=== PATIENT | female | born 1970 | race Caucasian/White ===

== ENCOUNTER 2021-01-24 00:38 | Emergency (ER) | payer BC, OTHER ==
[2021-01-24 01:04] VITALS: TEMP 98.8
--- NOTE | 2021-01-24 02:16 | CT ---
EXAMINATION TYPE: CT brain cspine wo con DATE OF EXAM: 01/24/2021 COMPARISON: None HISTORY: fall, unknown LOC. pain. CT DLP: 836.8 mGycm Automated exposure control for dose reduction was used. Exam performed without contrast. Ventricles have normal size. There is no mass effect nor midline shift. There is no sign of intracran ial hemorrhage. There is fluid level left maxillary sinus. There is some mild mucosal thickening in t he ethmoid sinuses. There is some mucosal thickening in the left mastoid sinus. The temporal bones appear intact. I do no t see evidence of a basilar skull fracture. External auditory canals appear normal. Cervical vertebra have normal spacing and alignment. Posterior elements are intact. There is no compr ession fracture. Facet joints are intact. Prevertebral soft tissues are intact. There is mild anterio r spurring at C4-5 and C5-6. IMPRESSION: Mild spurring in the cervical spine. No fracture. There is some mucosal thickening in the left mastoid sinus but no fracture line identified. This coul d be ordinary mastoiditis. Ethmoid and left maxillary sinusitis.
--- NOTE | 2021-01-24 02:20 | CT ---
EXAMINATION TYPE: CT thoracic spine wo con DATE OF EXAM: 01/24/2021 COMPARISON: None HISTORY: fall, unknown LOC. pain. CT DLP: 836.8 mGycm Automated exposure control for dose reduction was used. Images obtained from T1 to T12 without contrast. Thoracic vertebra have normal alignment. Posterior elements are intact. There is no compression fract ure. There is no evidence of thoracic paraspinal mass. There is fracture of the lateral left fourth r ib with minimal pleural thickening. This is incompletely evaluated and is on the edge of the images. I see no focal bone destruction. IMPRESSION: No evidence of thoracic spine fracture. Left fourth rib fracture.
--- NOTE | 2021-01-24 02:27 | CT ---
EXAMINATION TYPE: CT chest wo con DATE OF EXAM: 01/24/2021 COMPARISON: HISTORY: Fall to left side CT DLP: 836.80 mGycm Automated exposure control for dose reduction was used. Images obtained from the thoracic inlet to the diaphragm without contrast. Visualized shoulder joints appear intact. There is some mild subpleural reticular infiltrate lateral left upper lobe. There is no pneumothorax. There is minimal subsegmental atelectasis at the lung base s. There is no pleural effusion. There is no pericardial effusion. Heart and mediastinum appear queta l. There are no hilar masses. There is a fracture of the lateral aspect left fourth rib without significant displacement. There is minimal adjacent pleural reaction. There is no thoracic paraspinal mass. IMPRESSION: Acute fracture lateral left fourth rib. Mild subsegmental atelectasis. No pneumothorax. Normal heart.
[2021-01-24] MEDS ORDERED: KETOROLAC 15 MG/ML 1 ML VIAL IM STA (04:12)
--- NOTE | 2021-01-24 04:25 | ED ---
Fall HPI - General Chief Complaint: Fall Stated Complaint: Fall Time Seen by Provider: 01/24/21 00:43 Source: patient, EMS Mode of arrival: EMS - Related Data Previous Rx's Medication Instructions Recorded Amoxicillin/Potassium Clav 1 tab PO Q12HR 1 Days #14 tab 01/24/21 [Augmentin 875-125 Tablet] Allergies Allergy/AdvReac Type Severity Reaction Status Date / Time No Known Allergies Allergy Verified 01/24/21 01:03 Review of Systems ROS Statement: Those systems with pertinent positive or pertinent negative responses have been documented in the HPI. ROS Other: All systems not noted in ROS Statement are negative. Past Medical History Past Medical History: No Reported History History of Any Multi-Drug Resistant Organisms: None Reported Past Surgical History: No Surgical Hx Reported Past Psychological History: No Psychological Hx Reported Smoking Status: Current every day smoker Past Alcohol Use History: Occasional Past Drug Use History: None Reported General Exam Limitations: altered mental status Course Vital Signs 01/24/21 01/24/21 01/24/21 00:59 02:02 04:00 Temperature 98.8 F Pulse Rate 78 77 89 Respiratory 18 18 18 Rate Blood Pressure 132/93 121/70 116/80 O2 Sat by Pulse 95 93 L 92 L Oximetry Disposition Clinical Impression: Fall, Rib fracture Disposition: HOME SELF-CARE Condition: Good Instructions (If sedation given, give patient instructions): Rib Fracture (ED), Head Injury (ED) Prescriptions: Amoxicillin/Potassium Clav [Augmentin 875-125 Tablet] 1 tab PO Q12HR 1 Days #14 tab Is patient prescribed a controlled substance at d/c from ED?: No Referrals: None,Stated [Primary Care Provider] - 1-2 days Woody Carroll MD [STAFF PHYSICIAN] - 1-2 days
[2021-01-24 05:04] VITALS: BP 114/84; PULSE 78; RESP 16
== END 2021-01-24 05:04 | disposition home or self-care (01) ==
LOC: EC 00:38
DX: S22.32XA Fracture of one rib, left side, initial encounter for closed fracture (principal); F17.200 Nicotine dependence, unspecified, uncomplicated; W10.9XXA Fall (on) (from) unspecified stairs and steps, initial encounter
CPT/HCPCS: 72128; 72125; 70450; 71250; 99284; 96372; J1885

== ENCOUNTER 2021-01-28 10:51 | Inpatient (IN) | payer BC, MEDICARE ==
[2021-01-28] MEDS ORDERED: HYDROmorphone 0.5 MG/0.5 ML SYRINGE IVP STA ×4 (11:22→13:20)
[2021-01-28] MEDS ORDERED: SODIUM CHLORIDE 0.9% 1,000 ML IV ONE (11:25)
--- NOTE | 2021-01-28 11:47 | ED ---
General Adult HPI - General Chief complaint: Shortness of Breath Stated complaint: Revisit/TRINIDAD/Rib Pain Time Seen by Provider: 01/28/21 11:10 Source: patient, RN notes reviewed, old records reviewed Mode of arrival: ambulatory Limitations: no limitations - History of Present Illness Initial comments: 50-year-old female presenting with left-sided chest pain. Patient had been seen in the emergency department 4 days prior status post fall down several stairs. She had chest wall trauma and had 2 broken ribs. She states that the pain has worsened and she is having difficulty breathing over the past few days. She denies cough or fever. She has also had some bleeding from the left ear. - Related Data Home Medications Medication Instructions Recorded Confirmed ALPRAZolam [Xanax] 1 mg PO Q8HR PRN 01/28/21 01/28/21 Allergies Allergy/AdvReac Type Severity Reaction Status Date / Time ketorolac [From Toradol] AdvReac Nausea & Verified 01/28/21 12:38 Vomiting Review of Systems ROS Statement: Those systems with pertinent positive or pertinent negative responses have been documented in the HPI. ROS Other: All systems not noted in ROS Statement are negative. Past Medical History Past Medical History: No Reported History History of Any Multi-Drug Resistant Organisms: None Reported Past Surgical History: No Surgical Hx Reported Past Psychological History: No Psychological Hx Reported Smoking Status: Current every day smoker Past Alcohol Use History: Occasional Past Drug Use History: None Reported General Exam Limitations: no limitations General appearance: alert, in no apparent distress Head exam: Present: atraumatic, normocephalic Eye exam: Present: normal appearance, PERRL ENT exam: Absent: TM's normal bilaterally (There is dry blood in the left external auditory canal and ruptured tympanic membrane.) Neck exam: Present: normal inspection. Absent: tenderness, meningismus Respiratory exam: Present: chest wall tenderness, decreased breath sounds (left). Absent: respiratory distress Cardiovascular Exam: Present: regular rate, normal rhythm GI/Abdominal exam: Present: soft. Absent: distended, tenderness Extremities exam: Present: normal inspection, normal capillary refill. Absent: pedal edema Neurological exam: Present: alert, oriented X3, CN II-XII intact. Absent: motor sensory deficit Psychiatric exam: Present: normal affect, normal mood Skin exam: Present: warm, dry, intact. Absent: cyanosis, diaphoretic Course Vital Signs 01/28/21 01/28/21 01/28/21 10:55 11:56 12:50 Temperature 99.3 F Pulse Rate 106 H 84 Respiratory 18 20 Rate Blood Pressure 124/83 128/72 O2 Sat by Pulse 91 L 92 L 96 Oximetry 01/28/21 01/28/21 13:32 13:46 Temperature Pulse Rate 85 106 H Respiratory 16 22 Rate Blood Pressure 153/98 141/100 O2 Sat by Pulse 95 95 Oximetry Procedures - Chest Tube Insertion Consent Obtained: written consent Side of Procedure: left Indication: Other (Hemopneumothorax) Placed on monitor/pulse oximetry: Yes Site Prep: Chloroprep Local Anesthesia: Lidocaine 1% Insertion Site: 5th Intercostal Space, Midaxillary Scalpel: #15 Open into Pleural Space Using: Jolene Clamp Tube Size (Tajik): 28 Returns: Air, Blood Sutured in Place: Yes Type of Suture: Nylon Dressing Applied: Petroleum Gauze Attached to Suction: Yes Type of Suction: Pleuravac Repeat X-ray Results: Lung Inflated Patient Tolerated Procedure: well Medical Decision Making - Medical Decision Making 50 yo female presenting for reevaluation of left-sided chest pain and difficulty breathing after fall that occurred 4 days prior. I did repeat imaging of the chest which showed a large near complete pneumothorax with fluid component, suspected hemothorax. I did obtain consent for chest tube placement. I discussed case with cardiothoracic surgery who did recommend initial chest tube. Tube was placed without difficulty in the emergency department. Return to air and approximately 60 mL of blood-tinged fluid. Patient states he had a repeat x-ray which showed improved expansion, not complete. She will be admitted for monitoring of her chest tube, pain control. I discussed case with Dr. Sheldon who will admit. I discussed case with Dr. Palmer covering for the ICU, anesthesia was placed on consult for pain control. - Lab Data Result diagrams: 01/28/21 11:48 01/28/21 11:48 Lab Results 01/28/21 01/28/21 01/28/21 Range/Units 11:48 11:48 11:48 WBC 7.6 (3.8-10.6) k/uL RBC 4.17 (3.80-5.40) m/uL Hgb 14.4 (11.4-16.0) gm/dL Hct 43.4 (34.0-46.0) % MCV 104.2 H (80.0-100.0) fL MCH 34.4 (25.0-35.0) pg MCHC 33.0 (31.0-37.0) g/dL RDW 12.6 (11.5-15.5) % Plt Count 264 (150-450) k/uL MPV 7.5 Neutrophils % 71 % Lymphocytes % 20 % Monocytes % 5 % Eosinophils % 2 % Basophils % 1 % Neutrophils # 5.4 (1.3-7.7) k/uL Lymphocytes # 1.5 (1.0-4.8) k/uL Monocytes # 0.4 (0-1.0) k/uL Eosinophils # 0.1 (0-0.7) k/uL Basophils # 0.0 (0-0.2) k/uL Macrocytosis Slight PT 10.0 (9.0-12.0) sec INR 0.9 (<1.2) APTT 23.2 (22.0-30.0) sec Sodium 140 (137-145) mmol/L Potassium 4.3 (3.5-5.1) mmol/L Chloride 106 (98-107) mmol/L Carbon Dioxide 26 (22-30) mmol/L Anion Gap 8 mmol/L BUN 14 (7-17) mg/dL Creatinine 0.48 L (0.52-1.04) mg/dL Est GFR (CKD-EPI)AfAm >90 (>60 ml/min/1.73 sqM) Est GFR (CKD-EPI)NonAf >90 (>60 ml/min/1.73 sqM) Glucose 112 H (74-99) mg/dL Calcium 9.2 (8.4-10.2) mg/dL Total Bilirubin 0.5 (0.2-1.3) mg/dL AST 27 (14-36) U/L ALT 22 (4-34) U/L Alkaline Phosphatase 81 (38-126) U/L Total Protein 6.4 (6.3-8.2) g/dL Albumin 3.8 (3.5-5.0) g/dL Critical Care Time Critical Care Time: Yes Total Critical Care Time: 35 Disposition Clinical Impression: Multiple rib fractures, Hydropneumothorax Disposition: ADMITTED IP TO THIS [facility] Condition: Serious Is patient prescribed a controlled substance at d/c from ED?: No Referrals: None,Stated [Primary Care Provider] - 1-2 days Decision to Admit Reason: Admit from EC Decision Date: 01/28/21 Decision Time: 14:10
[2021-01-28 12:16] LABS: Basophils % (A) 1 %; Eosinophils # (A) 0.1 k/uL (0-0.7); Eosinophils % (A) 2 %; HCT 43.4 % (34.0-46.0); HGB 14.4 gm/dL (11.4-16.0); Lymphocytes # (A) 1.5 k/uL (1.0-4.8); Lymphocytes % (A) 20 %; MCH 34.4 pg (25.0-35.0); MCV 104.2 fL (80.0-100.0); Macrocytosis Slight; Mean Platelet Volume 7.5; Monocytes # (A) 0.4 k/uL (0-1.0); Monocytes % (A) 5 %; Neutrophils # (A) 5.4 k/uL (1.3-7.7); Neutrophils % (A) 71 %; Platelet Count 264 k/uL (150-450); RBC 4.17 m/uL (3.80-5.40); RDW 12.6 % (11.5-15.5); WBC 7.6 k/uL (3.8-10.6)
[2021-01-28 12:26] LABS: ALT 22 U/L (4-34); AST 27 U/L (14-36); African American GFR (CKD) >90 (>60 ml/min/1.73 sqM); Albumin 3.8 g/dL (3.5-5.0); Alkaline Phosphatase 81 U/L (38-126); Anion Gap 8 mmol/L; Blood Urea Nitrogen 14 mg/dL (7-17); Calcium 9.2 mg/dL (8.4-10.2); Carbon Dioxide 26 mmol/L (22-30); Chloride 106 mmol/L (98-107); Glucose 112 mg/dL (74-99); Non-African American GFR(CKD) >90 (>60 ml/min/1.73 sqM); Potassium 4.3 mmol/L (3.5-5.1); Sodium 140 mmol/L (137-145); Total Bilirubin 0.5 mg/dL (0.2-1.3); Total Protein 6.4 g/dL (6.3-8.2)
[2021-01-28 12:38] LABS: INR 0.9 (<1.2); Partial Thromboplastin Time 23.2 sec (22.0-30.0)
[2021-01-28] MEDS ORDERED: LIDOCAINE 1% INJ 10MG/ML (20 ML MDV) SQ ONE (12:41)
[2021-01-28] MEDS ORDERED: KETOROLAC 15 MG/ML 1 ML VIAL IVP STA (12:42)
--- NOTE | 2021-01-28 12:50 | CT ---
EXAMINATION TYPE: CT chest wo con DATE OF EXAM: 01/28/2021 COMPARISON: 01/24/2021 HISTORY: left side chest trauma CT DLP: 164.[address] of the chest was performed with lung and mediastinal window settings submitted. The la ck of contrast limits evaluation of the vascular, mediastinal and parenchymal structures including th e upper abdomen. LUNGS: Large greater than 80% left-sided pneumothorax with hydropneumothorax component noted. There i s no evidence of mediastinal shift. The right lung is clear. Upper lobe emphysematous changes noted. MEDIASTINUM/DEBBY: Thoracic aorta is of normal caliber with limited evaluation given lack of contrast . The heart is not enlarged. No evidence for mediastinal mass. No lymph nodes greater than 1cm. UPPER ABDOMEN: No significant abnormality is seen. OTHER: Fractures of left ribs 4 and 5 anteriorly and posteriorly at 9 and 10. Small amount of subcuta neous air demonstrated. IMPRESSION: 1. Large left-sided pneumothorax estimated at approximately 80% hydropneumothorax component. No medi astinal shift. Several left-sided rib fractures.
--- NOTE | 2021-01-28 13:05 | XR ---
EXAMINATION TYPE: XR chest 1V portable DATE OF EXAM: 01/28/2021 COMPARISON: CT chest same date HISTORY: Pneumothorax TECHNIQUE: Single frontal view of the chest is obtained. FINDINGS: The large left-sided pneumothorax is again seen. Fourth rib fracture on the left is noted. Patient is somewhat rotated. No definite mediastinal shift. There is associated atelectatic lung, le ft effusion, hydropneumothorax. Right lung is spared. Heart is not enlarged. IMPRESSION: Large left or pneumothorax is again seen. Left-sided rib fracture. Report relayed teleph onically to the referring clinician at the time of interpretation.
--- NOTE | 2021-01-28 13:13 | CT ---
EXAMINATION TYPE: CT iac wo con DATE OF EXAM: 01/28/2021 COMPARISON: None HISTORY: left side ear pain post fall Automated exposure control for dose reduction was used. FINDINGS: There is fluid noted within the left-sided mastoid air cells as well as attenuation surroun ding the ossicular chain. Coronal data sets 58 of 102 demonstrates possible cortical defect marked wi th an arrow. The findings could be related to fracture and underlying hemorrhage however the margins are somewhat sclerotic. Additional consideration would be that of chronic mastoiditis with cholestero l granuloma of the left ossicular chain. Clinical correlation however is recommended. Right-sided mas toid air cells and right-sided ossicular chain appear unremarkable. IMPRESSION: Fluid opacification of the left-sided mastoid air cells with attenuation surrounding the left ossicul ar chain could be posttraumatic in nature as there may be a cortical defect seen on coronal image 58 of one of 2 over the margins appear to be somewhat sclerotic. Additional consideration would be that of a chronic mastoiditis with cholesterol granuloma of the ossicular chain.
--- NOTE | 2021-01-28 13:45 | XR ---
EXAMINATION TYPE: XR chest 1V portable DATE OF EXAM: 01/28/2021 COMPARISON: Chest x-ray same date earlier time HISTORY: Status post left chest tube placement TECHNIQUE: Single frontal view of the chest is obtained. FINDINGS: Left sided chest tube has been placed in the interval and the distal tip is in the mid lef t chest. There is some improvement in the left-sided hydropneumothorax which persists at approximatel y 50%. The patient is rotated. Multiple left-sided rib fractures are present. IMPRESSION: Status post left sided chest tube placement as described
[2021-01-28] MEDS ORDERED: ACETAMINOPHEN TAB 325 MG TAB PO PRN (14:02)
[2021-01-28] MEDS ORDERED: NALOXONE 0.4 MG/ML 1 ML VIAL IV PRN (14:02)
--- NOTE | 2021-01-28 14:10 | P.CNPUL ---
History of Present Illness Consult date: 01/28/21 Reason for consult: pneumothorax History of present illness: 50-year-old female patient, presented emergency department because of worsening shortness of breath and left-sided chest pain. The patient was seen in the emergency department approximately 4 days ago after she had a fall down the stairs. At that time, and she ruled several minutes. She is coming in with worsening shortness of breath. During this current evaluation, a computed tomography scan of the chest was done and the patient was found to have a large left-sided pneumothorax estimated to be around 80% in addition diabetes mellitus which/shift and the patient had several left-sided rib fractures. Also, a Chest x-ray was done and the patient was found to have a large left-sided pneumothorax. The patient was afebrile and the patient was hemodynamically stable with a pulse ox of 92% on room air. At that point, a left-sided chest tube was inserted by the emergency physician. Subsequent chest x-ray showed adequate positioning of the left-sided chest tube. Nevertheless, the left lung has not completely expanded and there is a residual pneumothorax. At this poin t, the chest tube was eventually to Pleur-evac. There is some limited air leak. There is also some bloody output. Note that the CAT scan showed some limited effusion the lung base on the left. This could've been some limited pneumothorax. Review of Systems Constitutional: Denies chills, Denies fever Eyes: denies as per HPI, denies blurred vision, denies bulging eye, denies decreased vision, denies diplopia, denies discharge, denies dry eye, denies irritation, denies itching, denies pain, denies photophobia, denies loss of per ipheral vision, denies loss of vision, denies tunnel vision/blind spots Ears: deny: decreased hearing, ear discharge, earache, tinnitus Ears, nose, mouth and throat: Reports as per HPI Breasts: absent: as per HPI, change in shape, gynecomastia, masses, nipple discharge, pain, skin changes, swelling Cardiovascular: Reports chest pain, Reports decreased exercise tolerance, Reports dyspnea on exertion Respiratory: Reports dyspnea (0 ) Gastrointestinal: Reports as per HPI Genitourinary: Reports as per HPI Menstruation: Reports as per HPI Musculoskeletal: Reports as per HPI Musculoskeletal: absent: ankle pain, ankle stiffness, ankle swelling, as per HPI, elbow pain, elbow stiffness, elbow swelling, foot pain, foot stiffness, foot swelling, hand pain, hand stiffness, hand swelling, hip pain, hip stiffness, hip swelling, knee pain, knee stiffness, knee swelling, shoulder pain, shoulder stiffness, shoulder swelling, wrist pain, wrist stiffness, wrist swelling Integumentary: Reports as per HPI Neurological: Reports as per HPI Psychiatric: Reports as per HPI Endocrine: Reports as per HPI Hematologic/Lymphatic: Reports as per HPI Allergic/Immunologic: Reports as per HPI Past Medical History Past Medical History: No Reported History History of Any Multi-Drug Resistant Organisms: None Reported Past Surgical History: No Surgical Hx Reported Additional Past Surgical History / Comment(s): uumbilical hernia repair, tubal ligation Past Psychological History: No Psychological Hx Reported Smoking Status: Current every day smoker Past Alcohol Use History: Occasional Past Drug Use History: None Reported Medications and Allergies Home Medications Medication Instructions Recorded Confirmed Type ALPRAZolam [Xanax] 1 mg PO Q8HR PRN 01/28/21 01/28/21 History Allergies Allergy/AdvReac Type Severity Reaction Status Date / Time ketorolac [From Toradol] AdvReac Nausea & Verified 01/28/21 12:38 Vomiting Physical Exam Vitals: Vital Signs Temp Pulse Resp BP Pulse Ox 01/28/21 13:46 106 H 22 141/100 95 01/28/21 13:32 85 16 153/98 95 01/28/21 12:50 84 20 128/72 96 01/28/21 11:56 92 L 01/28/21 10:55 99.3 F 106 H 18 124/83 91 L Intake and Output 01/27/21 01/28/21 01/28/21 22:59 06:59 14:59 Other: Weight 49.895 kg Gen. appearance the patient is calm and comfortable and moderate degree of respiratory distress, not using gases and muscles of breathing. She is sitting up in her bed Head exam was generally normal. There was no scleral icterus or corneal arcus. Mucous membranes were moist. Neck was supple and without jugular venous distension, thyromegaly, or carotid bruits. Carotids were easily palpable bilaterally. There was no adenopathy. Lungs sounds revealed diminished breath sounds. The patient is unable to completely explain her lungs because of ongoing pain. Nevertheless, there is diminished breath on the left compared to the right. No chest wall deformity. The patient has a left-sided chest tube in place. Cardiac exam revealed the PMI to be normally situated and sized. The rhythm was regular and no extrasystoles were noted during several minutes of auscultation. The first and second heart sounds were normal and physiologic splitting of the second heart sound was noted. There were no murmurs, rubs, clicks, or gallops. Abdominal exam revealed normal bowel sounds. The abdomen was soft, non-tender, and without masses, organomegaly, or appreciable enlargement of the abdominal aorta. Examination of the extremities revealed easily palpable radial, femoral and pedal pulses. There was no cyanosis, clubbing or edema. SkinExamination of the skin revealed no evidence of significant rashes, suspicious appearing nevi or other concerning lesions. Neurologically, the patient is awake and alert and the patient does not have any focal neurological deficit. Cranial nerves are essentially intact. Results - Laboratory Findings CBC and BMP: 01/28/21 11:48 01/28/21 11:48 PT/INR, D-dimer PT 10.0 sec (9.0-12.0) 01/28/21 11:48 INR 0.9 (<1.2) 01/28/21 11:48 Abnormal lab findings: Abnormal Labs 01/28/21 01/28/21 11:48 11:48 MCV 104.2 H Creatinine 0.48 L Glucose 112 H - Diagnostic Findings Chest x-ray: image reviewed CT scan - chest: image reviewed Assessment and Plan Plan: 1 traumatic large left-sided pneumothorax, estimated to be thinking 80% of the left hemithorax. The patient presented with chest pain shortness of breath. The patient had a chest tube inserted in the emergency department. There is positive air leak. Post chest tube insertion chest x-ray shows incomplete expansion of the left lung. There is some limited bloody effusion within the lower back. Hemodynamically stable. 2 Traumatic left-sided fourth rib fracture 3 tiny left-sided pleural effusion/bloody, no corey pneumothorax 4 chest wall pain secondary to above 5 smoker Plan Reviewed the series of CAT scans of the chest x-ray. There is incomplete the expansion of the left lung. There is limited amount of air leak within the chest tube. Provide adequate pain control with Dilaudid. Consult anesthesia for possible epidural pain control. Daily chest x-rays. Incentive spirometer. Dilaudid for pain control for now. We'll continue to follow.
[2021-01-28] MEDS: HYDROmorphone 0.5 MG/0.5 ML SYRINGE IVP PRN ×4 (15:07→22:01)
[2021-01-28] MEDS ORDERED: ONDANSETRON 4 MG/2 ML VIAL IVP PRN (16:18)
--- NOTE | 2021-01-28 16:20 | P.GSHP ---
History of Present Illness H&P Date: 01/28/21 CHIEF COMPLAINT: Fall with left-sided rib pain HISTORY OF PRESENT ILLNESS: This is a 50-year-old female who fell down 5 stairs at home 4 days ago with loss of consciousness. She initially presented to the ER on 01/24/2021 and was noted to have left thoracic rib fractures and was discharged home from the ER. She presents back to the also with complaints of worsening pain in the left rib cage and shortness of breath. Oxygen saturation was 91% on room air. And she was mildly tachycardic on admission. Patient did have a computed tomography scan of the chest completed on 01/24/2021 with no ev idence of pneumothorax. Her computed tomography scan from today the chest shows a large left-sided pneumothorax estimated approximate 80% hydropneumothorax component. No mediastinal shift. Several left-sided rib fractures. Patient did have chest tube placed in the ER. Patient is receiving IV Dilaudid for pain. She reports that she is still having pain. She denies any abdominal pain. She also complains of left shoulder pain. Patient has been admitted to trauma service. PAST MEDICAL HISTORY: None PAST SURGICAL HISTORY: Umbilical hernia repair, tubal ligation MEDICATIONS: See list. ALLERGIES: See list. SOCIAL HISTORY: No illicit drug use. Patient smokes about half a pack a day REVIEW OF SYSTEMS: CONSTITUTIONAL: Denies fever or chills. HEENT: Denies blurred vision, vision changes, or eye pain. Denies hemoptysis CARDIOVASCULAR: Denies chest pain or pressure. RESPIRATORY: No shortness of breath. GASTROINTESTINAL: See HPI for pertinent findings HEMATOLOGIC: Denies bleeding disorders. GENITOURINARY: Denies any blood in urine or increased urinary frequency. SKIN: Denies pruitis. Denies rash. PHYSICAL EXAM: VITAL SIGNS: Reviewed GENERAL: Well-developed in no acute distress. HEENT: No sclera icterus. Extraocular movements grossly intact. Moist buccal mucosa. Head is atraumatic, normocephalic. No nasal drainage. ABDOMEN: Soft. Nondistended. Nontender NEUROLOGIC: Alert and oriented. Cranial nerves II through XII grossly intact. Chest: Patient is left-sided chest tube in place LABORATORY DATA: WBC 7.6 hemoglobin is 14.4 platelets 264 INR 0.9 sodium 140 potassium 4.3 BUN 14 creatinine 0.48 LFTs normal IMAGING: Computed tomography scan of the head and cervical spine from 01/24/2021 shows no fracture of the cervical spine. No evidence of fracture. There is some mucosal thickening in the left mastoid sinus but no fracture line identified. This could've urinary mastoiditis. Ethmoid and left maxillary sinusitis Computed tomography scan of the chest shows large left-sided pneumothorax estimated at approximate 80% hydropneumothorax component. No mediastinal shift. Several left-sided rib fractures. Internal auditory canal CT without contrast shows fluid opacification of the left sided mastoid air cells with attenuation surrounding the left posterior chain could be posttraumatic in nature as there may be a cortical defect. The margins appear to be somewhat sclerotic. Additional consideration would be chronic mastoiditis with cholesterol granuloma of the vascular chain. Chest x-ray status post left-sided chest tube placement shows improvement in left-sided hydropneumothorax which persists at approximately 50%. ASSESSMENT: 1. Fall with trauma to the left ribs 2. Traumatic large left-sided hydropneumothorax status post chest tube placement 3. Fourth Left rib fractures 4. Nicotine dependence PLAN: -Patient to be admitted to the ICU -Continue pain medication as needed -Continue to monitor patient's oxygen saturation -Encouraged patient to use incentive spirometer -Consults placed for pulmonary service, cardiothoracic and pain management -Start regular diet -GI prophylaxis Protonix and DVT prophylaxis subcu heparin Physician Oil Operator note has been reviewed by physician. Signing provider agrees with the documented findings, assessment, and plan of care. Past Medical History Past Medical History: No Reported History History of Any Multi-Drug Resistant Organisms: None Reported Past Surgical History: No Surgical Hx Reported Additional Past Surgical History / Comment(s): uumbilical hernia repair, tubal ligation Past Psychological History: No Psychological Hx Reported Smoking Status: Current every day smoker Past Alcohol Use History: Occasional Past Drug Use History: None Reported Medications and Allergies Home Medications Medication Instructions Recorded Confirmed Type ALPRAZolam [Xanax] 1 mg PO Q8HR PRN 01/28/21 01/28/21 History Allergies Allergy/AdvReac Type Severity Reaction Status Date / Time ketorolac [From Toradol] AdvReac Nausea & Verified 01/28/21 12:38 Vomiting Surgical - Exam Vital Signs Temp Pulse Resp BP Pulse Ox 99.3 F 106 H 18 124/83 91 L 01/28/21 10:55 01/28/21 10:55 01/28/21 10:55 01/28/21 10:55 01/28/21 10:55 Results - Labs 01/28/21 11:48 01/28/21 11:48 Abnormal Lab Results - Last 24 Hours (Table) 01/28/21 01/28/21 Range/Units 11:48 11:48 MCV 104.2 H (80.0-100.0) fL Creatinine 0.48 L (0.52-1.04) mg/dL Glucose 112 H (74-99) mg/dL Diabetes panel 01/28/21 Range/Units 11:48 Sodium 140 (137-145) mmol/L Potassium 4.3 (3.5-5.1) mmol/L Chloride 106 (98-107) mmol/L Carbon Dioxide 26 (22-30) mmol/L BUN 14 (7-17) mg/dL Creatinine 0.48 L (0.52-1.04) mg/dL Glucose 112 H (74-99) mg/dL Calcium 9.2 (8.4-10.2) mg/dL AST 27 (14-36) U/L ALT 22 (4-34) U/L Alkaline Phosphatase 81 (38-126) U/L Total Protein 6.4 (6.3-8.2) g/dL Albumin 3.8 (3.5-5.0) g/dL Calcium panel 01/28/21 Range/Units 11:48 Calcium 9.2 (8.4-10.2) mg/dL Albumin 3.8 (3.5-5.0) g/dL Pituitary panel 01/28/21 Range/Units 11:48 Sodium 140 (137-145) mmol/L Potassium 4.3 (3.5-5.1) mmol/L Chloride 106 (98-107) mmol/L Carbon Dioxide 26 (22-30) mmol/L BUN 14 (7-17) mg/dL Creatinine 0.48 L (0.52-1.04) mg/dL Glucose 112 H (74-99) mg/dL Calcium 9.2 (8.4-10.2) mg/dL Adrenal panel 01/28/21 Range/Units 11:48 Sodium 140 (137-145) mmol/L Potassium 4.3 (3.5-5.1) mmol/L Chloride 106 (98-107) mmol/L Carbon Dioxide 26 (22-30) mmol/L BUN 14 (7-17) mg/dL Creatinine 0.48 L (0.52-1.04) mg/dL Glucose 112 H (74-99) mg/dL Calcium 9.2 (8.4-10.2) mg/dL Total Bilirubin 0.5 (0.2-1.3) mg/dL AST 27 (14-36) U/L ALT 22 (4-34) U/L Alkaline Phosphatase 81 (38-126) U/L Total Protein 6.4 (6.3-8.2) g/dL Albumin 3.8 (3.5-5.0) g/dL
[2021-01-28] MEDS: ALPRAZolam 1 MG TAB PO PRN (17:13)
[2021-01-28] MEDS: HYDROcodone/APAP 5-325MG 1 EACH TAB PO PRN ×2 (17:14→20:55)
[2021-01-28] MEDS: NICOTINE 14MG/24HR PATCH TRANSDERM SCH (17:37)
[2021-01-28] MEDS: SODIUM CHLORIDE 0.9% 1,000 ML IV SCH (18:15)
[2021-01-28 18:45] LABS: Glucose,Whole Blood 103 mg/dL (75-99)
[2021-01-28] MEDS: HEPARIN SODIUM,PORCINE/PF 5,000 UNIT/0.5 ML SYRINGE SQ SCH (20:55)
--- NOTE | 2021-01-28 21:59 | P.PAINCN ---
History of Present Illness - Reason for Consult Consult date: 01/28/21 - Chief Complaint chest wall pain secondary to history of fall and rib fractures on left side - History of Present Illness Ms. Polanco is a 50-year-old female consulted for thoracic epidural, and pain management for her chest wall pain on left side secondary to rib fractures. patient had a history of fall from staircas on 01/24/2021 came to [facility] ER. patient had left side 4, and 5 anterior rib fracture,, and 9 and 10 posterior rib fractures. Patient was treated appropriately and discharged home. Later on patient developed shortness of breath, and uncontrolled pain today came to the ER again.. Her chest computed tomography scan showed left side hydropneumothorax compressing 80% of the lung status post left side chest tube placed in ER. patient is currently in ICU for Parke management, and pain management. Patient also complaining pain over her left shoulder area, and left side jaw, and left side ear secondary to trauma. patient described her pain is aching, throbbing, constant pain. She rated her pain 9-10 out of 10 in severity. Her pain increases with activities. Decreases with oral, IV pain medications to some extent. She has difficulty falling to sleep secondary to uncontrolled pain for last 4 days. She denied any red flex symptoms including bowel/bladder problems. Denied any weakness in her lower extremities. patient denied any side effects of the medication. Patient denied any suicidal tendency/homicidal tendency at this time. patient denied any fever / cough. Review of Systems Constitutional: Denies chills, Denies fever Ears: left: earache Ears, nose, mouth and throat: Reports headache Cardiovascular: Reports chest pain, Reports shortness of breath Respiratory: Reports pain on inspiration Gastrointestinal: Denies abdominal pain, Denies diarrhea, Denies nausea, Denies vomiting Musculoskeletal: Reports myalgias Musculoskeletal: left: shoulder pain Neurological: Reports headaches Psychiatric: Reports anxiety, Reports irritability Endocrine: Reports fatigue, Denies weight change Past Medical History Additional Past Medical History / Comment(s): migraine headaches History of Any Multi-Drug Resistant Organisms: None Reported Past Surgical History: No Surgical Hx Reported Additional Past Surgical History / Comment(s): uumbilical hernia repair, tubal ligation Past Anesthesia/Blood Transfusion Reactions: No Reported Reaction Past Psychological History: No Psychological Hx Reported Smoking Status: Light tobacco smoker Past Alcohol Use History: Occasional Additional Past Alcohol Use History / Comment(s): na Past Drug Use History: None Reported Additional Drug Use History / Comment(s): na Medications and Allergies Home Medications Medication Instructions Recorded Confirmed Type ALPRAZolam [Xanax] 1 mg PO Q8HR PRN 01/28/21 01/28/21 History Allergies Allergy/AdvReac Type Severity Reaction Status Date / Time ketorolac [From Toradol] AdvReac Nausea & Verified 01/28/21 12:38 Vomiting Physical Exam Vitals: Vital Signs Temp Pulse Resp BP Pulse Ox 01/28/21 20:34 92 L 01/28/21 19:00 98.2 F 93 17 121/93 93 L 01/28/21 18:58 98.6 F 98 22 155/79 93 L 01/28/21 18:40 66 01/28/21 18:08 98.2 F 92 L 01/28/21 17:07 98.6 F 98 22 155/79 93 L 01/28/21 16:04 95 01/28/21 14:21 85 22 135/98 100 01/28/21 13:46 106 H 22 141/100 95 01/28/21 13:32 85 16 153/98 95 01/28/21 12:50 84 20 128/72 96 01/28/21 11:56 92 L 01/28/21 10:55 99.3 F 106 H 18 124/83 91 L Intake and Output 01/28/21 01/28/21 01/28/21 06:59 14:59 22:59 Intake Total 50 Output Total 150 0 Balance -150 50 Intake: Intake, IV Titration 50 Amount Sodium Chloride 0.9% 1, 50 000 ml @ 50 mls/hr IV . Q20H [facility] Rx#:[id number] Output: Chest Tube Drainage 150 Chest Tube Left Lateral 150 Chest Urine 0 Other: Weight 49.895 kg 49.895 kg General: Well-developed, well-nourished, mild acute distress HEENT: Normocephalic, and atraumatic Neck: Supple, no neck swelling Psychiatric: Appropriate mood, and affect RS: left side chest tube in place, not palpated chest wall secondary to pain Results CBC & Chem 7: 01/28/21 11:48 01/28/21 11:48 Labs: Abnormal Lab Results - Last 24 Hours (Table) 01/28/21 01/28/21 01/28/21 Range/Units 11:48 11:48 18:43 MCV 104.2 H (80.0-100.0) fL Creatinine 0.48 L (0.52-1.04) mg/dL Glucose 112 H (74-99) mg/dL POC Glucose (mg/dL) 103 H (75-99) mg/dL Chest x-ray: report reviewed CT scan - chest: report reviewed Assessment and Plan Assessment: left-sided chest wall pain secondary to 4, 5 anterior rib fracture & 910 posterior side rib fracture left-sided chest tube for hydropneumothorax left shoulder pain secondary to trauma left-sided jaw pain, and left-sided year pain secondary to trauma History of migraine headaches Plan: patient was thoroughly discussed regarding the medication, interventional procedures, and alternatives. Patient understood and answer all the questions. Patient was very anxious that after thoracic epidural she wants to continue her Dilaudid IV every 2 hours regularly for her shoulder pain, and jaw pain. 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 Patient was explained that epidural solution contains local anesthetic, and fentanyl. Continuing IV Dilaudid every 2 hours on a regular basis may increase the risk of respiratory depression, and discussed with the patient but patient refused thoracic epidural as her IV Dilaudid helping in controlling her pain to some extent. patient was explained that after epidural patient can get IV Dilaudid every 2-3 hours as needed basis., but patient wants every 2 hours on regular basis. So at this time patient wants IV medication to control her pain. medications: IV Dilaudid 1 mg every 2 to every 3 hours as needed for pain level 7-10 out of 10 in severity Percocet 7.5/325 by mouth every 6 hours for pain levels 3 to 6out of 10 in severity Lidoderm 5% patch every 12 hours on and every 12 hours off over the affected left side rib fractures area. Neurontin 300 mg by mouth every 12 hours for pain Robaxin 500 mg by mouth every 8 hours as needed for muscle spasms Magnesium oxide 400 mg by mouth daily for pain Celebrex 200 mg by mouth daily for pain. if the above pain medications not helping in controlling her pain patient can reconsider thoracic epidural in future. Thank you for consulting anesthesia pain services. Please feel free to contact if you have any questions regarding patient care management. PQRS Measure Charge Sheet - Pain Location Left Lateral Incisional Chest Non-Pharmacological Interventions: Darkened Room, Distraction, Emotional/Spiritual Support, Environmental Control, Position/Reposition, Reduce Environmental Stimuli Pharmacological Interventions: Discuss Pain Med Options, PRN Medication PQRS Narrative: Blood Pressure 121/93 Pain Intensity [Left Lateral 10 Incisional Chest] Pain Intensity 7 Pain Scale Used Numeric (1 - 10) Scale Used Numeric (1 - 10) Home Medications: Ambulatory Orders ALPRAZolam [Xanax] 1 mg PO Q8HR PRN 01/28/21
[2021-01-28] MEDS: LIDOCAINE 5% PATCH TOPICAL SCH (23:04)
[2021-01-29] MEDS: ALPRAZolam 1 MG TAB PO PRN ×3 (00:21→18:16)
[2021-01-29] MEDS: HYDROmorphone 0.5 MG/0.5 ML SYRINGE IVP PRN ×10 (00:21→21:03)
[2021-01-29] MEDS: oxyCODONE-APAP 7.5-325MG 1 EACH TAB PO PRN ×3 (04:09→16:27)
[2021-01-29 04:32] LABS: ALT 17 U/L (4-34); AST 22 U/L (14-36); African American GFR (CKD) >90 (>60 ml/min/1.73 sqM); Albumin 3.2 g/dL (3.5-5.0); Alkaline Phosphatase 84 U/L (38-126); Anion Gap 6 mmol/L; Blood Urea Nitrogen 16 mg/dL (7-17); Calcium 8.4 mg/dL (8.4-10.2); Carbon Dioxide 26 mmol/L (22-30); Chloride 103 mmol/L (98-107); Glucose 106 mg/dL (74-99); Non-African American GFR(CKD) >90 (>60 ml/min/1.73 sqM); Potassium 4.1 mmol/L (3.5-5.1); Sodium 135 mmol/L (137-145); Total Bilirubin 0.5 mg/dL (0.2-1.3); Total Protein 5.6 g/dL (6.3-8.2)
[2021-01-29 04:44] LABS: Basophils # (A) 0.1 k/uL (0-0.2); Basophils % (A) 1 %; Eosinophils # (A) 0.2 k/uL (0-0.7); Eosinophils % (A) 2 %; HCT 43.4 % (34.0-46.0); HGB 13.7 gm/dL (11.4-16.0); Lymphocytes # (A) 2.2 k/uL (1.0-4.8); Lymphocytes % (A) 28 %; MCH 34.8 pg (25.0-35.0); MCHC 31.6 g/dL (31.0-37.0); Macrocytosis Marked; Mean Platelet Volume 8.1; Monocytes # (A) 0.4 k/uL (0-1.0); Monocytes % (A) 5 %; Neutrophils % (A) 62 %; Platelet Count 223 k/uL (150-450); RBC 3.95 m/uL (3.80-5.40); RDW 12.4 % (11.5-15.5)
[2021-01-29 04:47] LABS: MCV 109.9 fL (80.0-100.0)
[2021-01-29] MEDS: PANTOPRAZOLE 40 MG TABLET PO SCH (07:07)
--- NOTE | 2021-01-29 08:02 | XR ---
EXAMINATION TYPE: XR chest 1V portable DATE OF EXAM: 01/29/2021 COMPARISON: Chest x-ray 01/28/2021 HISTORY: Hydropneumothorax TECHNIQUE: Single frontal view of the chest is obtained. FINDINGS: Left-sided chest tube remains in place. There is improvement in aeration in the left lung. Some minimal persistent basilar density persists. No sizable pneumothorax. There are overlying artif acts. Patient is rotated. Multiple left-sided rib fractures are present. Surgical clips noted in the soft tissues of the left chest. Cardiac mediastinal silhouette is within normal limits. IMPRESSION: Improvement in aeration. There is likely some residual atelectasis, possible minimal ple ural fluid
--- NOTE | 2021-01-29 08:09 | P.GSCN ---
History of Present Illness Consult date: 01/29/21 Reason for Consult: Hydropneumothorax, multiple rib fractures Requesting physician: Ranjith Bobby History of present illness: This is a 50-year-old very active female who does not follow on an outpatient basis with a specific physician. She has a previous medical history of significant migraines, hernia surgery, current tobacco dependence, and current recreational EtOH use. Apparently this lady was seen in the emergency room at [facility] a few days ago after she had fallen down the stairs. She had a chest CT at that time demonstrating no pneumothorax, nondisplaced rib fracture and was sent home with pain medication. She began to have increasing shortness of breath and worsening left chest wall pain and presented back to [facility] emergency room yesterday for evaluation and treatment. CT of the chest was completed demonstrating large left-sided pneumothorax estimated to be around 80% with hydropneumothorax component along with several left-sided rib fractures. Left-sided thoracostomy tube was placed by the emergency room physicians, repeat chest x-ray demonstrated some reexpansion of the lung but not complete. She was admitted to the intensive care unit with consultation placed to pulmonology and cardiothoracic surgery for recommendations regarding hydropneumothorax and rib fractures. Review of Systems Review of systems was completed and was negative except as noted - Constitutional Reports as per HPI, Reports chronic headaches - Cardiovascular Reports as per HPI, Reports chest pain - Respiratory Reports as per HPI, Reports dyspnea, Reports pain on inspiration Past Medical History Additional Past Medical History / Comment(s): migraine headaches History of Any Multi-Drug Resistant Organisms: None Reported Past Surgical History: Hernia Repair, Uterine Ablation Additional Past Surgical History / Comment(s): uumbilical hernia repair, tubal ligation Past Anesthesia/Blood Transfusion Reactions: No Reported Reaction Past Psychological History: No Psychological Hx Reported Smoking Status: Light tobacco smoker Past Alcohol Use History: Occasional Additional Past Alcohol Use History / Comment(s): Admits to 1-2 drinks per week Past Drug Use History: None Reported Additional History: Smokes half a pack a day for 20 years - Past Family History Father Family Medical History: No Reported History Mother Family Medical History: Neurologic Disorder Additional Family Medical History / Comment(s): from multiple sclerosis Medications and Allergies Home Medications Medication Instructions Recorded Confirmed Type ALPRAZolam [Xanax] 1 mg PO Q8HR PRN 01/28/21 01/28/21 History Allergies Allergy/AdvReac Type Severity Reaction Status Date / Time ketorolac [From Toradol] AdvReac Nausea & Verified 01/28/21 12:38 Vomiting Surgical - Exam Vital Signs Temp Pulse Resp BP Pulse Ox 99.3 F 106 H 18 124/83 91 L 01/28/21 10:55 01/28/21 10:55 01/28/21 10:55 01/28/21 10:55 01/28/21 10:55 CONSTITUTIONAL: Awake and alert, cooperative, well-developed, well-nourished, no acute distress EYES: Pupils equal, round, reactive to light, normal ocular movement ENT: Moist mucous membranes without oral lesions present NECK: No masses, no bruits, trachea midline RESPIRATORY: Lungs sounds diminished bilaterally. Respirations even, nonlabored. Currently on 2 L nasal cannula with oxygen saturation 93%. Strong cough. Left sided chest tube present to continuous wall suction, no air leak present, 115 mL serosanguineous drainage overnight, 330 mL since placement. CARDIOVASCULAR: S1, S2 present. Regular rate and rhythm, sinus rhythm on telemetry. Palpable peripheral pulses bilaterally. No edema present. No calf pain or tenderness noted. GASTROINTESTINAL: Abdomen soft, nontender, nondistended without masses or organomegaly noted. There is no rebound or guarding present. Active bowel sounds present 4 quadrants. GENITOURINARY: Deferred INTEGUMENTARY: Skin is warm and dry with evidence of good perfusion. NEUROLOGIC: Cranial nerves II through XII intact, normal coordination, no obvious motor or sensory deficits, speech is normal MUSKULOSKELETAL: Able to move all extremities although admits somewhat limited due to pain, strength equal bilaterally, normal posture PSYCHIATRIC: Alert and oriented to person place and time, appropriate affect, intact judgment and insight Results - Labs 01/29/21 03:58 01/29/21 03:58 Abnormal Lab Results - Last 24 Hours (Table) 01/28/21 01/28/21 01/28/21 Range/Units 11:48 11:48 18:43 MCV 104.2 H (80.0-100.0) fL Macrocytosis Sodium (137-145) mmol/L Creatinine 0.48 L (0.52-1.04) mg/dL Glucose 112 H (74-99) mg/dL POC Glucose (mg/dL) 103 H (75-99) mg/dL Total Protein (6.3-8.2) g/dL Albumin (3.5-5.0) g/dL 01/29/21 01/29/21 Range/Units 03:58 03:58 MCV 109.9 H D (80.0-100.0) fL Macrocytosis Marked A Sodium 135 L (137-145) mmol/L Creatinine (0.52-1.04) mg/dL Glucose 106 H (74-99) mg/dL POC Glucose (mg/dL) (75-99) mg/dL Total Protein 5.6 L (6.3-8.2) g/dL Albumin 3.2 L (3.5-5.0) g/dL Diabetes panel 01/28/21 01/29/21 Range/Units 11:48 03:58 Sodium 140 135 L (137-145) mmol/L Potassium 4.3 4.1 (3.5-5.1) mmol/L Chloride 106 103 (98-107) mmol/L Carbon Dioxide 26 26 (22-30) mmol/L BUN 14 16 (7-17) mg/dL Creatinine 0.48 L 0.55 (0.52-1.04) mg/dL Glucose 112 H 106 H (74-99) mg/dL Calcium 9.2 8.4 (8.4-10.2) mg/dL AST 27 22 (14-36) U/L ALT 22 17 (4-34) U/L Alkaline Phosphatase 81 84 (38-126) U/L Total Protein 6.4 5.6 L (6.3-8.2) g/dL Albumin 3.8 3.2 L (3.5-5.0) g/dL Calcium panel 01/28/21 01/29/21 Range/Units 11:48 03:58 Calcium 9.2 8.4 (8.4-10.2) mg/dL Albumin 3.8 3.2 L (3.5-5.0) g/dL Pituitary panel 01/28/21 01/29/21 Range/Units 11:48 03:58 Sodium 140 135 L (137-145) mmol/L Potassium 4.3 4.1 (3.5-5.1) mmol/L Chloride 106 103 (98-107) mmol/L Carbon Dioxide 26 26 (22-30) mmol/L BUN 14 16 (7-17) mg/dL Creatinine 0.48 L 0.55 (0.52-1.04) mg/dL Glucose 112 H 106 H (74-99) mg/dL Calcium 9.2 8.4 (8.4-10.2) mg/dL Adrenal panel 01/28/21 01/29/21 Range/Units 11:48 03:58 Sodium 140 135 L (137-145) mmol/L Potassium 4.3 4.1 (3.5-5.1) mmol/L Chloride 106 103 (98-107) mmol/L Carbon Dioxide 26 26 (22-30) mmol/L BUN 14 16 (7-17) mg/dL Creatinine 0.48 L 0.55 (0.52-1.04) mg/dL Glucose 112 H 106 H (74-99) mg/dL Calcium 9.2 8.4 (8.4-10.2) mg/dL Total Bilirubin 0.5 0.5 (0.2-1.3) mg/dL AST 27 22 (14-36) U/L ALT 22 17 (4-34) U/L Alkaline Phosphatase 81 84 (38-126) U/L Total Protein 6.4 5.6 L (6.3-8.2) g/dL Albumin 3.8 3.2 L (3.5-5.0) g/dL - Imaging Chest x-ray: report reviewed, image reviewed CT scan - chest: report reviewed, image reviewed Assessment and Plan Assessment: 1. Fall from standing with subsequent left-sided rib fractures and significant pneumothorax 2. Left chest wall pain secondary to above 3. History of significant migraines 4. Current tobacco dependence 5. Current recreational EtOH use. Plan: The patient was seen and examined at the bedside in the intensive care unit sitting up in no acute distress eating breakfast. States pain is mostly controlled with IV Dilaudid but she is not moving much due to increased pain. The case will be discussed with Dr. Lazo who was aware of the patient yesterday as we did receive a phone call from the emergency room. There is no air leak present in her chest tube today and the lung appears to be reexpanded on x-ray. We may place the chest tube to waterseal and continue to monitor. Encourage incentive spirometry use. Wean O2 as tolerated. Encourage smoking cessation. Increase activity, ambulate as tolerated. Will monitor daily x-ra ys. Pain control prior anesthesia/painter tumbling barrel. Medical management of other comorbidities per primary care service. More recommendations to follow. Thank you for this consult. We will follow along with you. Time with Patient: Greater than 30
[2021-01-29] MEDS: HEPARIN SODIUM,PORCINE/PF 5,000 UNIT/0.5 ML SYRINGE SQ SCH ×2 (08:56→21:03)
[2021-01-29] MEDS: NICOTINE 14MG/24HR PATCH TRANSDERM SCH ×2 (08:56→10:19)
--- NOTE | 2021-01-29 09:34 | P.PN ---
<Nikole Mishra - Last Filed: 01/29/21 09:21> Subjective Progress Note Date: 01/29/21 Principal diagnosis: Trauma secondary to fall 50-year-old female patient, presented emergency department because of worsening shortness of breath and left-sided chest pain. The patient was seen in the emergency department approximately 4 days ago after she had a fall down the stairs. At that time, and she ruled several minutes. She is coming in with worsening shortness of breath. During this current evaluation, a computed tomography scan of the chest was done and the patient was found to have a large left-sided pneumothorax estimated to be around 80% in addition diabetes mellitus which/shift and the patient had several left-sided rib fractures. Also, a Chest x-ray was done and the patient was found to have a large left-sided pneumothorax. The patient was afebrile and the patient was hemodynamically stable with a pulse ox of 92% on room air. At that point, a left-sided chest tube was inserted by the emergency physician. Subsequent chest x-ray showed adequate positioning of the left-sided chest tube. Nevertheless, the left lung has not completely expanded and there is a residual pneumothorax. At this point, the chest tube was eventually to Pleur-evac. There is some limited air leak. There is also some bloody output. Note that the CAT scan showed some limited effusion the lung base on the left. This could've been some limited pneumothorax. The patient is seen today 01/29/2021 in follow-up in the intensive care unit. She is currently sitting up in bed. Awake and alert. Continues to have issues with pain control following her fall earlier this week. X-ray does show impro vement in aeration. Some residual atelectasis of the left lung base. Left- sided rib fractures noted. Left-sided thoracotomy remains in place. Currently to wall suction. She is maintaining good O2 saturations in the 90s on 2 L/m per nasal cannula. Afebrile. Hemodynamically stable. White count 8.0. Hemoglobin 13.7. MCV 109.9. Platelets 223. Sodium 135. Potassium 4.1. Creatinine 0.55. She needs increased encouragement regarding the use the incentive spirometer. She's on heparin for DVT prophylaxis. NicoDerm patch in place. Alternating Dilaudid with Percocet. Lidoderm patch in place.. Objective - Vital Signs Vital signs: Vital Signs Temp 98.2 F 01/29/21 00:00 Pulse 92 01/29/21 07:00 Resp 12 01/29/21 07:00 BP 95/62 01/29/21 07:00 Pulse Ox 90 L 01/29/21 07:00 Intake & Output 01/28/21 01/29/21 01/29/21 18:59 06:59 18:59 Intake Total 600 50 Output Total 150 975 Balance -150 -375 50 Weight 49.895 kg 50 kg Intake: IV 550 50 Sodium Chloride 0.9% 1, 550 50 000 ml @ 50 mls/hr IV . Q20H [facility] Rx#:[id number] Intake, IV Titration 50 Amount Sodium Chloride 0.9% 1, 50 000 ml @ 50 mls/hr IV . Q20H [facility] Rx#:[id number] Output: Chest Tube Drainage 150 125 Chest Tube Left Lateral 150 125 Chest Urine 850 Other: Voiding Method Bedpan # Voids 1 - Exam Gen. appearance 50-year-old female patient, on 2 L nasal cannula, fairly comfort able and mild degree of respiratory distress, not using gases and muscles of breathing. She is sitting up in her bed Head exam was generally normal. There was no scleral icterus or corneal arcus. Mucous membranes were moist. Neck was supple and without jugular venous distension, thyromegaly, or carotid bruits. Carotids were easily palpable bilaterally. There was no adenopathy. Lungs sounds revealed crackles in the left base, diminished breath sounds. The patient is unable to completely explain her lungs because of ongoing pain. Diminished breath on the left compared to the right. No chest wall deformity. The patient has a left-sided chest tube in place. Cardiac exam revealed the PMI to be normally situated and sized. The rhythm was regular and no extrasystoles were noted during several minutes of auscultation. The first and second heart sounds were normal and physiologic splitting of the second heart sound was noted. There were no murmurs, rubs, clicks, or gallops. Abdominal exam revealed normal bowel sounds. The abdomen was soft, non-tender, and without masses, organomegaly, or appreciable enlargement of the abdominal aorta. Examination of the extremities revealed easily palpable radial, femoral and pedal pulses. There was no cyanosis, clubbing or edema. SkinExamination of the skin revealed no evidence of significant rashes, suspicious appearing nevi or other concerning lesions. Neurologically, the patient is awake and alert and the patient does not have any focal neurological deficit. Cranial nerves are essentially intact. - Labs CBC & Chem 7: 01/29/21 03:58 01/29/21 03:58 Labs: Abnormal Lab Results - Last 24 Hours (Table) 01/28/21 01/28/21 01/28/21 Range/Units 11:48 11:48 18:43 MCV 104.2 H (80.0-100.0) fL Macrocytosis Sodium (137-145) mmol/L Creatinine 0.48 L (0.52-1.04) mg/dL Glucose 112 H (74-99) mg/dL POC Glucose (mg/dL) 103 H (75-99) mg/dL Total Protein (6.3-8.2) g/dL Albumin (3.5-5.0) g/dL 01/29/21 01/29/21 Range/Units 03:58 03:58 MCV 109.9 H D (80.0-100.0) fL Macrocytosis Marked A Sodium 135 L (137-145) mmol/L Creatinine (0.52-1.04) mg/dL Glucose 106 H (74-99) mg/dL POC Glucose (mg/dL) (75-99) mg/dL Total Protein 5.6 L (6.3-8.2) g/dL Albumin 3.2 L (3.5-5.0) g/dL Assessment and Plan Assessment: 1 Traumatic large left-sided pneumothorax, estimated to be thinking 80% of the left hemithorax. The patient presented with chest pain shortness of breath. The patient had a chest tube inserted in the emergency department. Currently to wall suction. Today's chest x-ray shows near complete expansion of the left lung. Hemodynamically stable. 2 Traumatic left-sided rib fractures involving the anterior fourth and fifth rib and posterior ninth and 10th rib 3 Tiny left-sided pleural effusion/bloody, no corey pneumothorax 4 Chest wall pain secondary to above 5 Smoker 6 Alcohol use Plan: The patient was seen and evaluated by Dr. Palmer Chest x-ray and labs reviewed Again encouraged regarding the increased use of incentive spirometer and cough and deep breathing exercises Maintain adequate pain control Increase her activity as tolerated Titrate the FiO2 as tolerated NicoDerm patch in place Possible transfer out of the ICU today We will continue to follow I, the cosigning physician, performed a history & physical examination of the patient. Lungs sounds with faint crackles in the left base, diminished. Maintaining good O2 saturations in the 90s on 2 L/m per nasal cannula. I discussed the assessment and plan of care with my nurse practitioner, Nikole Mishra. I attest to the above note as dictated by her. <Rian Palmer - Last Filed: 01/29/21 10:23> Objective - Vital Signs Vital signs: Vital Signs Temp 98.2 F 01/29/21 00:00 Pulse 92 01/29/21 07:00 Resp 12 01/29/21 07:00 BP 95/62 01/29/21 07:00 Pulse Ox 90 L 01/29/21 07:00 Intake & Output 01/28/21 01/29/21 01/29/21 18:59 06:59 18:59 Intake Total 600 50 Output Total 150 975 Balance -150 -375 50 Weight 49.895 kg 50 kg Intake: IV 550 50 Sodium Chloride 0.9% 1, 550 50 000 ml @ 50 mls/hr IV . Q20H [facility] Rx#:[id number] Intake, IV Titration 50 Amount Sodium Chloride 0.9% 1, 50 000 ml @ 50 mls/hr IV . Q20H [facility] Rx#:[id number] Output: Chest Tube Drainage 150 125 Chest Tube Left Lateral 150 125 Chest Urine 850 Other: Voiding Method Bedpan # Voids 1 - Labs CBC & Chem 7: 01/29/21 03:58 01/29/21 03:58 Labs: Abnormal Lab Results - Last 24 Hours (Table) 01/28/21 01/28/21 01/28/21 Range/Units 11:48 11:48 18:43 MCV 104.2 H (80.0-100.0) fL Macrocytosis Sodium (137-145) mmol/L Creatinine 0.48 L (0.52-1.04) mg/dL Glucose 112 H (74-99) mg/dL POC Glucose (mg/dL) 103 H (75-99) mg/dL Total Protein (6.3-8.2) g/dL Albumin (3.5-5.0) g/dL 01/29/21 01/29/21 Range/Units 03:58 03:58 MCV 109.9 H D (80.0-100.0) fL Macrocytosis Marked A Sodium 135 L (137-145) mmol/L Creatinine (0.52-1.04) mg/dL Glucose 106 H (74-99) mg/dL POC Glucose (mg/dL) (75-99) mg/dL Total Protein 5.6 L (6.3-8.2) g/dL Albumin 3.2 L (3.5-5.0) g/dL Assessment and Plan Assessment: The patient is doing better. Repeat chest x-ray shows complete reexpansion of the left lung. No evidence of any air leak and the chest tube is to water seal for now. We'll chest for the patient out of the intensive care unit.
[2021-01-29] MEDS: LIDOCAINE 5% PATCH TOPICAL SCH (12:45)
--- NOTE | 2021-01-29 14:31 | XR ---
Left shoulder HISTORY: Trauma and pain 3 views of the left shoulder There is slight superior displacement of the distal clavicle in relation to the acromion. Bone minera lization is maintained. Multiple left-sided rib fractures are present as noted on previous exam. Ther e is some local pleural thickening. Left-sided chest tube, left apical pneumothorax present. IMPRESSION: Findings may represent a grade 1 to grade 2 acromial clavicular separation. Multiple left -sided rib fractures, left apical pneumothorax. No evident fracture or dislocation within the shoulde r.
[2021-01-29] MEDS: SODIUM CHLORIDE 0.9% 1,000 ML IV SCH (14:58)
--- NOTE | 2021-01-29 16:07 | P.PN ---
Subjective Progress Note Date: 01/29/21 CHIEF COMPLAINT: Follow left-sided rib pain HISTORY OF PRESENT ILLNESS: Patient is currently in the ICU after having a fall down stairs. She has evidence of a left-sided hydropneumothorax. She has chest tube in place. She has rib fractures on the left side. Patient has been seen by pain service. She is reporting left-sided rib pain. Pain medication is helping. She is tolerating diet. She is complaining of left shoulder pain. She is on 3 L and 90%. Chest x-ray shows improvement in aeration. There is likely some residual atelectasis, possible minimal pleural fluid. Left shoulder x-ray shows findings may represent a grade 1 to grade 2 acromioclavicular separation. Multiple left-sided rib fractures, left apical pneumothorax. No evident fracture or dislocation within the shoulder. Patient denies any abdominal pain. Denies any nausea or vomiting. She is having flatus. PHYSICAL EXAM: VITAL SIGNS: Reviewed. GENERAL: Well-developed in no acute distress. HEENT: No sclera icterus. Extraocular movements grossly intact. Moist buccal mucosa. Head is atraumatic, normocephalic. ABDOMEN: Soft. Nondistended. Nontender. NEUROLOGIC: Alert and oriented. Cranial nerves II through XII grossly intact. ASSESSMENT: 1. Fall with trauma to the left ribs 2. Traumatic large left-sided hydropneumothorax status post chest tube placement 3. Fourth Left rib fractures 4. Nicotine dependence PLAN: -Continue ICU management -Continue supportive care -Chest tube management per cardiothoracic team -Consult orthopedics regarding left shoulder pain and grade 1 to grade 2 acromioclavicular separation -Encourage incentive spirometry use -Encourage patient to increase activity -Continue to monitor patient's oxygen saturation -Continue GI and DVT prophylaxis Physician Anvilsmith note has been reviewed by physician. Signing provider agrees with the documented findings, assessment, and plan of care. Objective - Vital Signs Vital signs: Vital Signs Temp 98.6 F 01/29/21 08:00 Pulse 83 01/29/21 12:00 Resp 17 01/29/21 12:00 BP 108/75 01/29/21 12:00 Pulse Ox 91 L 01/29/21 12:00 Intake & Output 01/28/21 01/29/21 01/29/21 18:59 06:59 18:59 Intake Total 600 950 Output Total 150 975 600 Balance -150 -375 350 Weight 49.895 kg 50 kg Intake: IV 550 450 Sodium Chloride 0.9% 1, 550 450 000 ml @ 50 mls/hr IV . Q20H [facility] Rx#:[id number] Intake, IV Titration 50 Amount Sodium Chloride 0.9% 1, 50 000 ml @ 50 mls/hr IV . Q20H [facility] Rx#:[id number] Oral 500 Output: Chest Tube Drainage 150 125 Chest Tube Left Lateral 150 125 Chest Urine 850 600 Other: Voiding Method Bedpan Bedpan # Voids 1 - Labs CBC & Chem 7: 01/29/21 03:58 01/29/21 03:58 Labs: Abnormal Lab Results - Last 24 Hours (Table) 01/28/21 01/29/21 01/29/21 Range/Units 18:43 03:58 03:58 MCV 109.9 H D (80.0-100.0) fL Macrocytosis Marked A Sodium 135 L (137-145) mmol/L Glucose 106 H (74-99) mg/dL POC Glucose (mg/dL) 103 H (75-99) mg/dL Total Protein 5.6 L (6.3-8.2) g/dL Albumin 3.2 L (3.5-5.0) g/dL
[2021-01-30] MEDS: ALPRAZolam 1 MG TAB PO PRN ×3 (00:25→18:10)
[2021-01-30] MEDS: oxyCODONE-APAP 7.5-325MG 1 EACH TAB PO PRN ×4 (00:25→22:32)
[2021-01-30] MEDS: HYDROmorphone 0.5 MG/0.5 ML SYRINGE IVP PRN ×9 (00:26→22:43)
--- NOTE | 2021-01-30 07:04 | XR ---
EXAMINATION TYPE: XR chest 1V portable DATE OF EXAM: 01/30/2021 CLINICAL HISTORY: Difficulty breathing progress study. Hydropneumothorax. Rib fractures. TECHNIQUE: Single AP portable upright view of the chest is obtained. COMPARISON: Chest x-ray from one day earlier and older studies FINDINGS: Persistent left-sided chest tube with tiny left apical pneumothorax current study not belen rly seen on prior. Persistent small to tiny left pleural fluid collection. Chronic parenchymal change s with patchy right basilar atelectatic change. Cardiac silhouette size is stable and upper limits of normal. Multiple left-sided lateral rib fractures redemonstrated seen better on CT imaging. IMPRESSION: Tiny left apical pneumothorax now seen. Left-sided chest tube noted. Stable small to tiny left pleural fluid collection or hemothorax inferiorly.
--- NOTE | 2021-01-30 08:58 | P.PN ---
Subjective Progress Note Date: 01/30/21 Principal diagnosis: Trauma secondary to fall 50-year-old female patient, presented emergency department because of worsening shortness of breath and left-sided chest pain. The patient was seen in the emergency department approximately 4 days ago after she had a fall down the [employer]. At that time, and she ruled several minutes. She is coming in with worsening shortness of breath. During this current evaluation, a computed tomography scan of the chest was done and the patient was found to have a large left-sided pneumothorax estimated to be around 80% in addition diabetes mellitus which/shift and the patient had several left-sided rib fractures. Also, a Chest x-ray was done and the patient was found to have a large left-sided pneumothorax. The patient was afebrile and the patient was hemodynamically stable with a pulse ox of 92% on room air. At that point, a left-sided chest tube was inserted by the emergency physician. Subsequent chest x-ray showed adequate positioning of the left-sided chest tube. Nevertheless, the left lung has not completely expanded and there is a residual pneumothorax. At this point, the chest tube was eventually to Pleur-evac. There is some limited air leak. There is also some bloody output. Note that the CAT scan showed some limited effusion the lung base on the left. This could've been some limited pneumothorax. The patient is seen today 01/29/2021 in follow-up in the intensive care unit. She is currently sitting up in bed. Awake and alert. Continues to have issues with pain control following her fall earlier this week. X-ray does show improvement in aeration. Some residual atelectasis of the left lung base. Left-sided rib fractures noted. Left-sided thoracotomy remains in place. Currently to wall suction. She is maintaining good O2 saturations in the 90s on 2 L/m per nasal cannula. Afebrile. Hemodynamically stable. White count 8.0. Hemoglobin 13.7. MCV 109.9. Platelets 223. Sodium 135. Potassium 4.1. Creatinine 0.55. She needs increased encouragement regarding the use the incentive spirometer. She's on heparin for DVT prophylaxis. NicoDerm patch in place. Alternating Dilaudid with Percocet. Lidoderm patch in place.. The patient is seen today 01/30/2021 in follow-up in the intensive care unit. She is sitting up in bed. Awake and alert in no acute distress. Appears more comfortable today. She is still only pulling 500-750 MLS on the incentive spirometer. She states she cannot do any better than this due to her broken ribs poking her in the chest when she takes a deep breath. Chest x-ray is revealing a tiny left apical pneumothorax. Left-sided chest remains in place. Small left fluid collection or hemothorax inferiorly. Continues on Dilaudid for pain control. Heparin for DVT prophylaxis. Objective - Vital Signs Vital signs: Vital Signs Temp 98.3 F 01/30/21 04:00 Pulse 65 01/30/21 05:00 Resp 12 01/30/21 05:00 BP 98/73 01/30/21 05:00 Pulse Ox 93 L 01/30/21 04:00 Intake & Output 01/29/21 01/30/21 01/30/21 18:59 06:59 18:59 Intake Total 1000 Output Total 960 1240 Balance 40 -1240 Weight 51.3 kg Intake: IV 500 Sodium Chloride 0.9% 1, 500 000 ml @ 50 mls/hr IV . Q20H [facility] Rx#:[id number] Oral 500 Output: Chest Tube Drainage 160 40 Chest Tube Left Lateral 160 40 Chest Urine 800 1200 Other: Voiding Method Toilet Toilet # Voids 1 - Exam Gen. appearance: alert, 50-year-old female patient, on 2 L nasal cannula, fairly comfortable and mild degree of respiratory distress, not using gases and muscles of breathing. She is sitting up in her bed Head exam was generally normal. There was no scleral icterus or corneal arcus. Mucous membranes were moist. Neck was supple and without jugular venous distension, thyromegaly, or carotid bruits. Carotids were easily palpable bilaterally. There was no adenopathy. Lungs sounds revealed crackles in the left base, diminished breath sounds. The patient is unable to completely explain her lungs because of ongoing pain. Diminished breath on the left compared to the right. No chest wall deformity. The patient has a left-sided chest tube in place. Cardiac exam revealed the PMI to be normally situated and sized. The rhythm was regular and no extrasystoles were noted during several minutes of auscultation. The first and second heart sounds were normal and physiologic splitting of the second heart sound was noted. There were no murmurs, rubs, clicks, or gallops. Abdominal exam revealed normal bowel sounds. The abdomen was soft, non-tender, and without masses, organomegaly, or appreciable enlargement of the abdominal aorta. Examination of the extremities revealed easily palpable radial, femoral and pedal pulses. There was no cyanosis, clubbing or edema. SkinExamination of the skin revealed no evidence of significant rashes, suspicious appearing nevi or other concerning lesions. Neurologically, the patient is awake and alert and the patient does not have any focal neurological deficit. Cranial nerves are essentially intact. - Labs CBC & Chem 7: 01/29/21 03:58 01/29/21 03:58 Assessment and Plan Assessment: 1 Traumatic large left-sided pneumothorax, estimated to be thinking 80% of the left hemithorax. The patient presented with chest pain shortness of breath. The patient had a chest tube inserted in the emergency department. Currently to wall suction. Today's chest x-ray shows small apical pneumothorax of the left lung. Continues with intermittent air leak. 2 Traumatic left-sided rib fractures involving the anterior fourth and fifth rib and posterior ninth and 10th rib 3 Tiny left-sided pleural effusion/bloody, no corey pneumothorax 4 Chest wall pain secondary to above 5 Smoker 6 Alcohol use Plan: The patient was seen and evaluated by Dr. Palmer Chest x-ray reviewed Again encouraged regarding the increased use of incentive spirometer and cough and deep breathing exercises Increase her activity as tolerated Awaiting bed for [facility] We will continue to follow I, the cosigning physician, performed a history & physical examination of the patient. Lungs sounds with faint crackles in the left base, diminished. Maintaining good O2 saturations in the 90s on 2 L/m per nasal cannula. I discussed the assessment and plan of care with my nurse practitioner, Nikole Mishra. I attest to the above note as dictated by her.
--- NOTE | 2021-01-30 09:22 | P.PN ---
Subjective Progress Note Date: 01/30/21 Principal diagnosis: Hydropneumothorax, multiple rib fractures, status post fall from standing down some stairs. Past medical history significant for migraines, hernia surgery, cu rrent tobacco dependence, and current recreational EtOH use. Status post placement of left-sided thoracostomy tube placed by the emergency room physician. Patient is seen in follow-up today 01/30/2021 at her bedside in the intensive care unit. Currently she is laying in bed, is awake, alert and oriented 3 and is in no acute apparent distress. Denies any complaints of shortness of breath although is complaining of some pain to her chest tube insertion site and to her left chest due to her rib fractures. Oxygen saturations are 93% on 3 L nasal cannula and she is achieving 750 mL on her incentive spirometry with encouragement. Left pleural chest tube remains in place to water seal. Int ermittent air leak is present. Draining thin serosanguineous drainage with 40 mL output in the last 8 hours and 160 mL output in the last 24 hours. A chest x-ray was completed this morning which shows a tiny left apical pneumothorax. Objective - Vital Signs Vital signs: Vital Signs Temp 98.3 F 01/30/21 04:00 Pulse 65 01/30/21 05:00 Resp 12 01/30/21 05:00 BP 98/73 01/30/21 05:00 Pulse Ox 93 L 01/30/21 04:00 Intake & Output 01/29/21 01/30/21 01/30/21 18:59 06:59 18:59 Intake Total 1000 Output Total 960 1240 Balance 40 -1240 Weight 51.3 kg Intake: IV 500 Sodium Chloride 0.9% 1, 500 000 ml @ 50 mls/hr IV . Q20H [facility] Rx#:[id number] Oral 500 Output: Chest Tube Drainage 160 40 Chest Tube Left Lateral 160 40 Chest Urine 800 1200 Other: Voiding Method Toilet Toilet # Voids 1 - Exam CONSTITUTIONAL: Sitting up in her bed, in the intensive care unit, appears comfortable, cooperative, no apparent acute distress. HEENT: Neck is supple, no JVD, no lymphadenopathy. RESPIRATORY: Lungs sounds essentially clear throughout, diminished to his bilateral bases, left greater than right. Respirations are symmetrical and nonlabored. Currently on 3 L nasal cannula with oxygen saturations 93%. Able to achieve 750 mL on hrr incentive spirometry. Strong cough. CARDIOVASCULAR: Regular rhythm and rate. S1 and S2 present, negative for S3, gallop or murmur. Palpable peripheral pulses bilaterally, no edema present to her bilateral lower extremities. No calf pain or tenderness noted. GASTROINTESTINAL: Abdomen soft, nontender, nondistended. Active bowel sounds present 4 quadrants. Tolerating diet. Passing flatus. No guarding or rigidity. GENITOURINARY: Continues to void. INTEGUMENTARY: Skin is warm and dry with no evidence of clubbing or cyanosis. NEUROLOGIC: Cranial nerves II through XII intact. No focal deficits. MUSKULOSKELETAL: Able to move all extremities, strength equal bilaterally. PSYCHIATRIC: Alert and oriented to person place and time, appropriate affect, intact judgment and insight. INVASIVE LINES AND TUBES: Left pleural chest tubes present and is to water seal. Intermittent air leak present. Draining thin serosanguineous drainage with 40 mL output in the last 8 hours and 160 mL over the last 24 hours. - Labs CBC & Chem 7: 01/29/21 03:58 01/29/21 03:58 Assessment and Plan Assessment: 1. Fall from standing with subsequent left-sided rib fractures and significant pneumothorax 2. Left chest wall pain secondary to above 3. History of significant migraines 4. Current tobacco dependence 5. Current recreational EtOH use. Plan: 1. Continue left pleural chest tube in place to water seal. 2. Encourage use of her incentive spirometry 10 times every hour while awake. 3. Pain control per current when necessary orders. 4. Importance of risk modification discussed with the patient including smoking cessation. 5. Continue to monitor daily chest x-rays. 6. Medical management and other comorbidities per primary care and pulmonary critical care services. 7. Increase activity as tolerated. 8. More recommendations to follow based on patient's clinical course. Time with Patient: Greater than 30
[2021-01-30] MEDS: NICOTINE 14MG/24HR PATCH TRANSDERM SCH (10:00)
[2021-01-30] MEDS: PANTOPRAZOLE 40 MG TABLET PO SCH (10:05)
[2021-01-30] MEDS: HEPARIN SODIUM,PORCINE/PF 5,000 UNIT/0.5 ML SYRINGE SQ SCH ×2 (10:05→20:11)
--- NOTE | 2021-01-30 10:05 | P.CNOR ---
History of Present Illness - [facility] Consult date: 01/30/21 Requesting physician: Rhona Chen Consult reason: other (left shoulder pain, possible acromial clavicular seperat ion) History of present illness: Patient is 50-year-old female who fell at home several days ago down 5 stairs. Patient came to the ER on 01/24/2021 for rib fractures on the left side and was discharged home from the ER. Patient came back with increased shortness of breath and left sided rib pain. Computed tomography scan of the chest demonstrated left-sided pneumothorax. We were consulted for left shoulder pain possible AC joint separation. Patient does complain of some left shoulder pain since her fall. She says most of his pain is when she tries to raise her left arm or during palpation over the clavicle. Patient mentions multiple times that she is not able to push off the arm to get out of bed without being in severe pain. Patient says regularly she works out 4-5 times a week, so her left shoulder pain right now is very uncommon for her. Patient denies increasing chest pain, increasing shortness of breath, fever, nausea, vomiting, change in vision, loss of bowel/bladder control. Past Medical History Past Medical History: No Reported History Additional Past Medical History / Comment(s): migraine headaches History of Any Multi-Drug Resistant Organisms: None Reported Past Surgical History: Hernia Repair, Uterine Ablation Additional Past Surgical History / Comment(s): uumbilical hernia repair, tubal l igation Past Anesthesia/Blood Transfusion Reactions: No Reported Reaction Past Psychological History: No Psychological Hx Reported Smoking Status: Light tobacco smoker Past Alcohol Use History: Occasional Additional Past Alcohol Use History / Comment(s): Admits to 1-2 drinks per week Past Drug Use History: None Reported - Past Family History Father Family Medical History: No Reported History Mother Family Medical History: Neurologic Disorder Additional Family Medical History / Comment(s): from multiple sclerosis Medications and Allergies Home Medications Medication Instructions Recorded Confirmed Type ALPRAZolam [Xanax] 1 mg PO Q8HR PRN 01/28/21 01/28/21 History Allergies Allergy/AdvReac Type Severity Reaction Status Date / Time ketorolac [From Toradol] AdvReac Nausea & Verified 01/28/21 12:38 Vomiting Physical Examination Left shoulder: Inspection: Negative for any open fractures, erythema, ecchymosis, wounds, nodules. There is a more pronounced elevation of AC joint on the left side versus the right Palpation: Significant tenderness to palpation over the distal clavicle and acromion on the left side. Patient nontender to palpation along the scapula sternum. Nontender to palpation along the proximal humerus. Sensation: Sensation is equal, symmetric, intact bilaterally in the upper extremities Range of motion: Range of motion is limited in the left arm. Patient is able to forward elevate left arm to about 80 before she gets pain in her shoulder. Patient can abduct left arm to about 75 before she needs to use her right arm to help her lift her arm up more. Motor: Weakness on resisted abduction and forward elevation the left arm Results - Labs Labs: H & H 01/28/21 01/29/21 Range/Units 11:48 03:58 Hgb 14.4 13.7 (11.4-16.0) gm/dL Hct 43.4 43.4 (34.0-46.0) % Coagulation 01/28/21 Range/Units 11:48 INR 0.9 (<1.2) Result Diagrams: 01/29/21 03:58 01/29/21 03:58 Assessment and Plan Assessment: 1. Left AC joint separation, grade 1/2 Plan: 1. Acromioclavicular joint separation, grade 1/2 - patient was seen at bedside this morning and findings of x-ray left shoulder were discussed with patient. At this time recommend pain control with oral medications for this shoulder injury. Before patient goes home we will order arm sling for her to go home with. At this time we do not recommend any orthopedic surgical intervention. Patient is stable from orthopedic standpoint for discharge home. Please do not hesitate to contact us for any further questions. 2. Appreciate medical management 3. Appreciate consult 4. Pain management - Percocet 5. GI prophylaxis - protinix 6. DVT prophylaxis - heparin Time with Patient: Less than 30
[2021-01-30] MEDS: LIDOCAINE 5% PATCH TOPICAL SCH (10:35)
--- NOTE | 2021-01-30 12:30 | P.PN ---
Progress Note - Text Progress Note Date: 01/30/21 Patient's feeling better. She still has complaints of right-sided chest wall pain. On exam vital signs are still. Endo-Sock. Right chest wall is tender. Multiple right rib fractures with pneumothorax. Patient will receive supportive care.
[2021-01-30] MEDS ORDERED: bisacodyL 10 MG SUPP RECTAL PRN (16:20)
[2021-01-30] MEDS: bisacodyL 5 MG TABLET.DR PO SCH (16:42)
[2021-01-31] MEDS: HYDROmorphone 0.5 MG/0.5 ML SYRINGE IVP PRN ×12 (00:44→23:07)
[2021-01-31] MEDS: ALPRAZolam 1 MG TAB PO PRN ×3 (02:54→18:59)
[2021-01-31] MEDS: oxyCODONE-APAP 7.5-325MG 1 EACH TAB PO PRN ×4 (04:35→22:33)
[2021-01-31] MEDS: PANTOPRAZOLE 40 MG TABLET PO SCH (06:27)
--- NOTE | 2021-01-31 07:12 | XR ---
EXAMINATION TYPE: XR chest 1V portable DATE OF EXAM: 01/31/2021 CLINICAL HISTORY: Left-sided pneumothorax progress study. TECHNIQUE: Single AP portable upright view of the chest is obtained. COMPARISON: Chest x-ray from one day earlier and older studies. FINDINGS: Persistent left-sided chest tube with stable tiny left apical pneumothorax current study. Persistent small to tiny left pleural fluid collection. Chronic parenchymal changes with patchy bibas ilar atelectatic change. Cardiac silhouette size is stable and upper limits of normal. Multiple left- sided lateral rib fractures redemonstrated seen better on CT imaging. IMPRESSION: Stable tiny left apical pneumothorax with left-sided chest tube noted. Stable small to ti ny left left inferior pleural fluid collection or hemothorax. No significant change from one day cesar ier.
[2021-01-31] MEDS: NICOTINE 14MG/24HR PATCH TRANSDERM SCH (08:05)
[2021-01-31] MEDS: HEPARIN SODIUM,PORCINE/PF 5,000 UNIT/0.5 ML SYRINGE SQ SCH ×2 (09:02→21:00)
[2021-01-31] MEDS: bisacodyL 5 MG TABLET.DR PO SCH (09:02)
[2021-01-31] MEDS: LIDOCAINE 5% PATCH TOPICAL SCH (09:03)
--- NOTE | 2021-01-31 09:13 | P.PN ---
Subjective Progress Note Date: 01/31/21 Principal diagnosis: Left shoulder acromioclavicular joint separation grade 1/2 Patient was seen at bedside this morning sitting up comfortably. Patient says her left shoulder is feeling a little bit better this morning far as pain goes. She says there is still some tenderness when she touches her acromioclavicular joint, but it is not as bad as it was yesterday. Patient is understanding of the need for arm sling to aid in recovery of her injury. Patient denies increasing chest pain, increasing shortness breath, fever, nausea, vomiting, change in vision, loss of bowel/bladder control. Objective - Vital Signs Vital signs: Vital Signs Temp 97.5 F L 01/31/21 08:03 Pulse 94 01/31/21 08:03 Resp 16 01/31/21 08:03 BP 114/77 01/31/21 08:03 Pulse Ox 96 01/31/21 08:03 Intake & Output 01/30/21 01/31/21 01/31/21 18:59 06:59 18:59 Intake Total 240 Output Total 940 0 Balance -700 0 Intake: Oral 240 Output: Chest Tube Drainage 40 0 Chest Tube Left Lateral 40 0 Chest Urine 900 Other: Voiding Method Toilet Toilet # Bowel Movements 2 - Exam Left shoulder: Inspection: Negative for any open fractures, erythema, ecchymosis, wounds, nodules. There is a more pronounced elevation of AC joint on the left side versus the right Palpation: Significant tenderness to palpation over the distal clavicle and acromion on the left side. Patient nontender to palpation along the scapula sternum. Nontender to palpation along the proximal humerus. Sensation: Sensation is equal, symmetric, intact bilaterally in the upper extremities Range of motion: Range of motion is limited in the left arm. Patient is able to forward elevate left arm to about 80 before she gets pain in her shoulder. Patient can abduct left arm to about 75 before she needs to use her right arm to help her lift her arm up more. Motor: Weakness on resisted abduction and forward elevation the left arm - Labs CBC & Chem 7: 01/29/21 03:58 01/29/21 03:58 Assessment and Plan Assessment: 1. Left AC joint separation, grade 1/2 Plan: 1. Acromioclavicular joint separation, grade 1/2 - patient was seen at bedside this morning and findings of x-ray left shoulder were discussed with patient. At this time recommend pain control with oral medications for this shoulder inju ry. Arm sling has been ordered for patient to use when she goes home. At this time we do not recommend any orthopedic surgical intervention. Patient is stable from orthopedic standpoint for discharge home. Please do not hesitate to contact us for any further questions. 2. Appreciate medical management 3. Appreciate consult 4. Pain management - Percocet 5. GI prophylaxis - protinix 6. DVT prophylaxis - heparin Time with Patient: Less than 30
--- NOTE | 2021-01-31 09:30 | P.PN ---
Subjective Progress Note Date: 01/31/21 Principal diagnosis: Hydropneumothorax, multiple rib fractures, status post fall from standing down some stairs. Past medical history significant for migraines, hernia surgery, cu rrent tobacco dependence, and current recreational EtOH use. Status post placement of left-sided thoracostomy tube placed by the emergency room physician. Patient is seen in follow-up today 01/31/2021 at her bedside on the cardiac stepdown unit. Currently she sitting up to the bedside edge, alert and oriented 3 and is in no acute apparent distress. Denies any complaints of shortness of breath although is complaining of some pain to her chest tube insertion site and to her left chest due to her rib fractures. She does report that the pain is much better controlled today than yesterday. Oxygen saturations are 91% on room air and 93% on 2 L nasal cannula. She is achieving 750-1000 mL on her incentive spirometry with encouragement. Left pleural chest tube remains in place to water seal. No air leak is present. Draining thin serosanguineous drainage with 110 mL output in the last 24 hours. A chest x-ray was completed this morning which shows a tiny left apical pneumothorax. Objective - Vital Signs Vital signs: Vital Signs Temp 97.5 F L 01/31/21 08:03 Pulse 94 01/31/21 08:03 Resp 16 01/31/21 08:03 BP 114/77 01/31/21 08:03 Pulse Ox 96 01/31/21 08:03 Intake & Output 01/30/21 01/31/21 01/31/21 18:59 06:59 18:59 Intake Total 240 Output Total 940 0 Balance -700 0 Weight 49.6 kg Intake: Oral 240 Output: Chest Tube Drainage 40 0 Chest Tube Left Lateral 40 0 Chest Urine 900 Other: Voiding Method Toilet Toilet # Bowel Movements 2 - Exam CONSTITUTIONAL: Sitting up to her bedside edge, on the cardiac stepdown unit, appears comfortable, cooperative, no apparent acute distress. HEENT: Neck is supple, no JVD, no lymphadenopathy. RESPIRATORY: Lungs sounds essentially clear throughout, diminished to his bilateral bases, left greater than right. Respirations are symmetrical and nonlabored. Currently on 2 L nasal cannula with oxygen saturations 93%. Able to achieve 750-1000 mL on her incentive spirometry. Strong cough. CARDIOVASCULAR: Regular rhythm and rate. S1 and S2 present, negative for S3, gallop or murmur. Palpable peripheral pulses bilaterally, no edema present to her bilateral lower extremities. No calf pain or tenderness noted. GASTROINTESTINAL: Abdomen soft, nontender, nondistended. Active bowel sounds present 4 quadrants. Tolerating diet. No guarding or rigidity. GENITOURINARY: Continues to void. INTEGUMENTARY: Skin is warm and dry with no evidence of clubbing or cyanosis. NEUROLOGIC: Cranial nerves II through XII intact. No focal deficits. MUSKULOSKELETAL: Able to move all extremities, strength equal bilaterally. PSYCHIATRIC: Alert and oriented to person place and time, appropriate affect, intact judgment and insight. INVASIVE LINES AND TUBES: Left pleural chest tubes present and is to water seal. No air leak present. Draining thin serosanguineous drainage with 110 mL over the last 24 hours. - Allied health notes Allied health notes reviewed: nursing - Labs CBC & Chem 7: 01/29/21 03:58 01/29/21 03:58 - Imaging and Cardiology Chest x-ray: report reviewed, image reviewed Assessment and Plan Assessment: 1. Fall from standing with subsequent left-sided rib fractures and significant pneumothorax 2. Left chest wall pain secondary to above 3. History of significant migraines 4. Current tobacco dependence 5. Current recreational EtOH use. Plan: 1. Continue left pleural chest tube in place to water seal. We will clamp the chest tube this morning, and unclamp it after a couple of hours. If there is no air leak once the chest tube was unclamped we will remove the left pleural chest tube. 2. Encourage use of her incentive spirometry 10 times every hour while awake. 3. Pain control per current when necessary orders. 4. Importance of risk modification discussed with the patient including smoking cessation. 5. Continue to monitor daily chest x-rays. 6. Medical management and other comorbidities per primary care and pulmonary critical care services. 7. Increase activity as tolerated. 8. More recommendations to follow based on patient's clinical course. Time with Patient: Greater than 30
--- NOTE | 2021-01-31 12:18 | P.PN ---
Progress Note - Text Progress Note Date: 01/31/21 The patient may stable. She still has evidence of pneumothorax. On exam vital signs are stable. Abdomen soft. Patient will continue chest tube drainage. We will provide supportive care.
--- NOTE | 2021-01-31 13:18 | P.PN ---
Subjective Progress Note Date: 01/31/21 01/31/2021, the patient is being seen for a follow-up. Anxiety levels are down. Pain is under better control. Using incentive spirometer. Minimal amount of air leak while being on water seal. For that reason, the chest she will be kept in place for another 24 hours. The chest x-ray from today shows a tiny left apical pneumothorax. Note that the patient had a hydropneumothorax and multiple rib fractures following a fall. She is a chronic smoker. She has also been drinking alcohol which probably contributed to her fall. Otherwise, the white cell count is at 8 with hemoglobin 13.7. COVID-19 test that was negative. Objective - Vital Signs Vital signs: Vital Signs Temp 97.5 F L 01/31/21 11:43 Pulse 90 01/31/21 11:43 Resp 16 01/31/21 11:43 BP 95/56 01/31/21 11:43 Pulse Ox 98 01/31/21 11:43 Intake & Output 01/30/21 01/31/21 01/31/21 18:59 06:59 18:59 Intake Total 240 Output Total 940 0 20 Balance -700 0 -20 Weight 49.6 kg Intake: Oral 240 Output: Chest Tube Drainage 40 0 20 Chest Tube Left Lateral 40 0 20 Chest Urine 900 Other: Voiding Method Toilet Toilet # Bowel Movements 2 - Exam CONSTITUTIONAL: Sitting up to her bedside edge, on the cardiac stepdown unit, appears comfortable, cooperative, no apparent acute distress. HEENT: Neck is supple, no JVD, no lymphadenopathy. RESPIRATORY: Lungs sounds essentially clear throughout, diminished to his bilateral bases, left greater than right. Respirations are symmetrical and nonlabored. Currently on 2 L nasal cannula with oxygen saturations 93%. Able to achieve 750-1000 mL on her incentive spirometry. Strong cough. CARDIOVASCULAR: Regular rhythm and rate. S1 and S2 present, negative for S3, gallop or murmur. Palpable peripheral pulses bilaterally, no edema present to her bilateral lower extremities. No calf pain or tenderness noted. GASTROINTESTINAL: Abdomen soft, nontender, nondistended. Active bowel sounds present 4 quadrants. Tolerating diet. No guarding or rigidity. GENITOURINARY: Continues to void. INTEGUMENTARY: Skin is warm and dry with no evidence of clubbing or cyanosis. NEUROLOGIC: Cranial nerves II through XII intact. No focal deficits. MUSKULOSKELETAL: Able to move all extremities, strength equal bilaterally. PSYCHIATRIC: Alert and oriented to person place and time, appropriate affect, intact judgment and insight. INVASIVE LINES AND TUBES: Left pleural chest tubes present and is to water seal. No air leak present. Draining thin serosanguineous drainage with 110 mL over the last 24 hours. - Labs CBC & Chem 7: 01/29/21 03:58 01/29/21 03:58 Assessment and Plan Plan: 1 traumatic large left-sided pneumothorax, estimated to be thinking 80% of the left hemithorax. The patient presented with chest pain shortness of breath. The patient had a chest tube inserted in the emergency department. The chest tube is still in place and the patient is minimal apical left pneumothorax with ongoing episodic air leak, intermittent, while being on water seal. 2 Traumatic left-sided fourth rib fracture 3 tiny left-sided pleural effusion/bloody, no corey pneumothorax 4 chest wall pain secondary to above, improved and the patient's chest pain as been under better control 5 smoker 6 chronic anxiety on Xanax Plan Continue using incentive spirometer Keep the chest tube attached to water seal Monitor the air leak Repeat chest x-ray in the morning Pain is under adequate control We'll continue to follow
[2021-02-01] MEDS: HYDROmorphone 0.5 MG/0.5 ML SYRINGE IVP PRN ×11 (01:12→22:18)
[2021-02-01] MEDS: ALPRAZolam 1 MG TAB PO PRN ×3 (03:12→18:31)
[2021-02-01] MEDS: oxyCODONE-APAP 7.5-325MG 1 EACH TAB PO PRN ×4 (04:43→22:30)
[2021-02-01] MEDS: PANTOPRAZOLE 40 MG TABLET PO SCH (06:54)
--- NOTE | 2021-02-01 08:26 | XR ---
EXAMINATION TYPE: XR chest 1V portable DATE OF EXAM: 02/01/2021 COMPARISON: Chest x-ray 01/31/2021 HISTORY: Chest tube, pneumothorax TECHNIQUE: Single frontal view of the chest is obtained. FINDINGS: Findings are similar to prior exam. Left-sided chest tube remains in place. There is retro cardiac density obscuring the left hemidiaphragm. Cardiac mediastinal silhouette is stable. Suspect i mprovement in the left apical pneumothorax. Right lung is stable. Left-sided rib fractures again note d. IMPRESSION: No sizable pneumothorax. Probable left lower lobe atelectasis and associated effusion.
--- NOTE | 2021-02-01 08:59 | P.PN ---
Subjective Progress Note Date: 02/01/21 Principal diagnosis: Hydropneumothorax, multiple rib fractures, status post fall from standing down some stairs. Past medical history significant for migraines, hernia surgery, cu rrent tobacco dependence, and current recreational EtOH use. Status post placement of left-sided thoracostomy tube placed by the emergency room physician. Patient is seen in follow-up today 02/01/2021 at her bedside on the cardiac stepdown unit. Currently she sitting up to the bedside edge, alert and oriented 3 and is in no acute apparent distress. The patient denies any complaints of shortness of breath at this time, although is complaining of some pain to her left chest tube insertion site with taking deep breaths. She reports she has been up ambulating in her room without need for assistance from nursing staff. Oxygen saturation are 97% on room air and she is achieving 750 mL on her incentive spirometry. Left pleural chest tube remains in place to water seal. No air leak is present. Draining thin serosanguineous drainage with 110 mL output in the last 24 hours. Her chest tube was going to be removed yesterday although prior to removal there was an intermittent air leak present. Chest x- ray this morning shows no sizable pneumothorax. Objective - Vital Signs Vital signs: Vital Signs Temp 98.6 F 02/01/21 08:22 Pulse 83 02/01/21 08:22 Resp 16 02/01/21 08:22 BP 115/71 02/01/21 08:22 Pulse Ox 95 02/01/21 08:22 Intake & Output 01/31/21 02/01/21 02/01/21 18:59 06:59 18:59 Intake Total 240 20 Output Total 20 50 Balance 220 -30 Weight 49.6 kg Intake: IV 20 Invasive Line 1 20 Oral 240 Output: Chest Tube Drainage 20 50 Chest Tube Left Lateral 20 50 Chest Other: Voiding Method Toilet # Voids 2 2 - Exam CONSTITUTIONAL: Sitting up to her bedside edge, on the cardiac stepdown unit, appears comfortable, cooperative, no apparent acute distress. HEENT: Neck is supple, no JVD, no lymphadenopathy. RESPIRATORY: Lungs sounds essentially clear throughout, diminished to his bilateral bases, left greater than right. Respirations are symmetrical and non labored. Currently on room air with oxygen saturations 97%. Able to achieve 750 mL on her incentive spirometry. Strong cough. CARDIOVASCULAR: Regular rhythm and rate. S1 and S2 present, negative for S3, gallop or murmur. Palpable peripheral pulses bilaterally, no edema present to her bilateral lower extremities. No calf pain or tenderness noted. GASTROINTESTINAL: Abdomen soft, nontender, nondistended. Active bowel sounds present 4 quadrants. Tolerating diet. No guarding or rigidity. GENITOURINARY: Continues to void. INTEGUMENTARY: Skin is warm and dry with no evidence of clubbing or cyanosis. NEUROLOGIC: Cranial nerves II through XII intact. No focal deficits. MUSKULOSKELETAL: Able to move all extremities, strength equal bilaterally. PSYCHIATRIC: Alert and oriented to person place and time, appropriate affect, intact judgment and insight. INVASIVE LINES AND TUBES: Left pleural chest tubes present and is to water seal. No air leak present. Draining thin serosanguineous drainage with 110 mL over the last 24 hours. - Allied health notes Allied health notes reviewed: nursing - Labs CBC & Chem 7: 01/29/21 03:58 01/29/21 03:58 - Imaging and Cardiology Chest x-ray: report reviewed, image reviewed Assessment and Plan Assessment: 1. Fall from standing with subsequent left-sided rib fractures and significant pneumothorax 2. Left chest wall pain secondary to above 3. History of significant migraines 4. Current tobacco dependence 5. Current recreational EtOH use. Plan: 1. We will remove her left pleural chest tube today. Please leave dressing in place for 48 hours. 2. Encourage use of her incentive spirometry 10 times every hour while awake. 3. Pain control per current when necessary orders. 4. Importance of risk modification discussed with the patient including smoking cessation. 5. Continue to monitor daily chest x-rays. If her a.m. chest x-ray shows no sizable left pneumothorax per the cardiothoracic surgery standpoint she can be discharged home when okay by attending and other consultants. 6. Medical management and other comorbidities per primary care and pulmonary critical care services. 7. Increase activity as tolerated. 8. More recommendations to follow based on patient's clinical course. Time with Patient: Greater than 30
[2021-02-01] MEDS: bisacodyL 5 MG TABLET.DR PO SCH (09:10)
[2021-02-01] MEDS: HEPARIN SODIUM,PORCINE/PF 5,000 UNIT/0.5 ML SYRINGE SQ SCH ×2 (09:11→20:12)
[2021-02-01] MEDS: LIDOCAINE 5% PATCH TOPICAL SCH (09:11)
[2021-02-01] MEDS: NICOTINE 14MG/24HR PATCH TRANSDERM SCH ×2 (09:11→09:13)
--- NOTE | 2021-02-01 13:23 | P.PN ---
Subjective Progress Note Date: 02/01/21 CHIEF COMPLAINT: Follow left-sided rib pain HISTORY OF PRESENT ILLNESS: Cardiothoracic ASSISTANT [employer] removed chest tube this afternoon. They've ordered repeat chest x-ray for the morning. Patient is having left-megha ed rib pain. She reports that her pain is controlled. She denies any nausea or vomiting. She's also been seen by orthopedic service regarding her before meals joint separation on the left shoulder. She is tolerating diet. Denies any nausea or vomiting. She is on the cardiac floor. Afebrile. Room air satting at 92% PHYSICAL EXAM: VITAL SIGNS: Reviewed. GENERAL: Well-developed in no acute distress. HEENT: No sclera icterus. Extraocular movements grossly intact. Moist buccal mucosa. Head is atraumatic, normocephalic. ABDOMEN: Soft. Nondistended. Nontender. NEUROLOGIC: Alert and oriented. Cranial nerves II through XII grossly intact. ASSESSMENT: 1. Fall with trauma to the left ribs 2. Traumatic large left-sided hydropneumothorax status post chest tube placement 3. Fourth Left rib fractures 4. Nicotine dependence PLAN: -Chest tube removed per cardiothoracic team. -Follow up on chest x-ray in a.m. -Encourage incentive spirometry use -Encourage patient to increase activity -Continue to monitor patient's oxygen saturation -Possible discharge tomorrow if cleared by all consulting physicians -Continue GI and DVT prophylaxis Physician Blood Bank Order Control Clerk note has been reviewed by physician. Signing provider agrees with the documented findings, assessment, and plan of care. Objective - Vital Signs Vital signs: Vital Signs Temp 98.6 F 02/01/21 12:00 Pulse 83 02/01/21 12:00 Resp 20 02/01/21 12:00 BP 124/74 02/01/21 12:00 Pulse Ox 92 L 02/01/21 12:00 Intake & Output 01/31/21 02/01/21 02/01/21 18:59 06:59 18:59 Intake Total 240 20 240 Output Total 20 50 0 Balance 220 -30 240 Weight 49.6 kg Intake: IV 20 Invasive Line 1 20 Oral 240 240 Output: Chest Tube Drainage 20 50 0 Chest Tube Left Lateral 20 50 0 Chest Other: Voiding Method Toilet Toilet # Voids 2 2 1 - Labs CBC & Chem 7: 01/29/21 03:58 01/29/21 03:58
--- NOTE | 2021-02-01 17:17 | P.PN ---
Subjective Progress Note Date: 02/01/21 Principal diagnosis: Acute traumatic left-sided pneumothorax and multiple rib fractures secondary to fall. Patient was reevaluated today on 02/01/2021, patient has mostly left sided rib pain no shortness of breath, her chest tube was removed earlier by thoracic surgery on the case. Patient is otherwise asymptomatic. No cough no fever no chills no hemoptysis, she does have left-sided chest wall pain secondary to multiple rib fractures. Patient is being considered for possible discharge planning in the next 24 hours. Objective - Vital Signs Vital signs: Vital Signs Temp 98.4 F 02/01/21 16:00 Pulse 89 02/01/21 16:00 Resp 16 02/01/21 16:00 BP 113/75 02/01/21 16:00 Pulse Ox 95 02/01/21 16:00 Intake & Output 01/31/21 02/01/21 02/01/21 18:59 06:59 18:59 Intake Total 240 20 240 Output Total 20 50 0 Balance 220 -30 240 Weight 49.6 kg Intake: IV 20 Invasive Line 1 20 Oral 240 240 Output: Chest Tube Drainage 20 50 0 Chest Tube Left Lateral 20 50 0 Chest Other: Voiding Method Toilet Toilet # Voids 2 2 1 - Exam Physical Exam revealed 50-year-old female in no distress. HEENT:[Neck is supple.] [No neck masses.] [No thyromegaly.] [No JVD.] Chest: [Clear throughout, no crackles, no rhonchi, no wheezes.] Cardiac Exam: [Normal S1 and S2, no S3 gallop, no murmur.] Abdomen: [Soft, nontender, no megaly, no rebound, no guarding, normal bowel sounds.] Extremities: [No clubbing, no edema, no cyanosis.] Neurological Exam: [No focal neurologic deficit.] Psychiatric: Normal mood affect and normal mental status examination. Skin: No rashes. - Labs CBC & Chem 7: 01/29/21 03:58 01/29/21 03:58 Assessment and Plan Assessment: Impression: Traumatic left-sided pneumothorax secondary to fall/rib fractures requiring tube thoracostomy in the emergency room department. Traumatic fourth rib fractur Small tiny left pleural effusion/secondary to fall and trauma. Chest wall pain Generalized anxiety disorder Tobacco dependence syndrome Recommendation: Patient is doing quite well from the pulmonary perspective Will recommend discharge planning after her chest x-ray tomorrow assuming the patient doesn't have recurrent left-sided pneumothorax. Cleared from our perspective for discharge planning after follow-up chest x-ray as long as she is cleared by thoracic surgery. Patient can follow-up with Dr. Palmer on outpatient basis if necessary. We will sign off and see the patient on when necessary basis. Time with Patient: Less than 30
--- NOTE | 2021-02-01 22:02 | XR ---
EXAMINATION TYPE: XR chest 1V portable DATE OF EXAM: 02/01/2021 COMPARISON: Chest radiograph 02/01/2021 HISTORY: Dyspnea. Post chest tube removal. TECHNIQUE: Single frontal view of the chest is obtained. FINDINGS: There is been interval removal of the left chest tube. The cardiomediastinal silhouette an d pulmonary vasculature is within normal limits. There is redemonstration of opacity at left base wit h blunting of the left costophrenic angle. There is a small apical left pneumothorax. IMPRESSION: 1. Interval removal of left chest tube with a small apical left pneumothorax. 2. Persistent tiny left effusion with adjacent atelectasis/airspace disease.
[2021-02-02] MEDS: HYDROmorphone 0.5 MG/0.5 ML SYRINGE IVP PRN ×8 (00:07→15:22)
[2021-02-02] MEDS: ALPRAZolam 1 MG TAB PO PRN ×2 (02:10→11:15)
[2021-02-02] MEDS: oxyCODONE-APAP 7.5-325MG 1 EACH TAB PO PRN ×2 (04:55→11:14)
[2021-02-02] MEDS: PANTOPRAZOLE 40 MG TABLET PO SCH (06:20)
--- NOTE | 2021-02-02 08:08 | XR ---
EXAMINATION TYPE: XR chest 2V DATE OF EXAM: 02/02/2021 COMPARISON: Chest x-ray 02/01/2021 HISTORY: Status post chest tube removal, pneumothorax TECHNIQUE: Frontal and lateral views of the chest are obtained. FINDINGS: The retrocardiac density with obscured left hemidiaphragm, blunting left costophrenic angl e are again noted. Cardiomediastinal silhouette is stable. There are overlying leads. Left-sided rib fractures with some local pleural thickening again noted laterally. Minute apical left pneumothorax i s present. Right lung is spared.. IMPRESSION: No significant change, there is left lower lobe atelectasis and associated effusion. Min imal apical pneumothorax persists. Posttraumatic changes to the left chest.
[2021-02-02] MEDS: LIDOCAINE 5% PATCH TOPICAL SCH (08:13)
[2021-02-02] MEDS: NICOTINE 14MG/24HR PATCH TRANSDERM SCH (08:13)
[2021-02-02] MEDS: bisacodyL 5 MG TABLET.DR PO SCH (08:13)
[2021-02-02] MEDS: HEPARIN SODIUM,PORCINE/PF 5,000 UNIT/0.5 ML SYRINGE SQ SCH (08:15)
[2021-02-02 09:16] VITALS: RESP 20
--- NOTE | 2021-02-02 09:19 | P.PN ---
Subjective Progress Note Date: 02/02/21 Principal diagnosis: Hydropneumothorax, multiple rib fractures, status post fall from standing down some stairs. Previouis medical history of migraines, hernia surgery, current to bacco dependence, and current recreational EtOH use. POD #5 placement of left-sided thoracostomy tube by the emergency room physicians The patient was seen and examined this morning on the cardiac stepdown unit. She was ambulatory in the room. Does continue to complain of pain to her left sided chest, denies shortness of breath. Left pleural chest tube was discontinued yesterday without incident, repeat chest x-ray reviewed, stable. No new concerns Objective - Vital Signs Vital signs: Vital Signs Temp 98.0 F 02/02/21 04:00 Pulse 86 02/02/21 04:00 Resp 16 02/02/21 04:00 BP 102/62 02/02/21 04:00 Pulse Ox 91 L 02/02/21 04:00 Intake & Output 02/01/21 02/02/21 02/02/21 18:59 06:59 18:59 Intake Total 240 20 240 Output Total 0 Balance 240 20 240 Weight 50.3 kg Intake: IV 20 Invasive Line 1 20 Oral 240 240 Output: Chest Tube Drainage 0 Chest Tube Left Lateral 0 Chest Other: Voiding Method Toilet Toilet # Voids 1 2 1 - Exam CONSTITUTIONAL: Appears comfortable, cooperative, no acute distress RESPIRATORY: Lungs sounds diminished bilaterally. Respirations even, nonla bored. Currently on room air with oxygen saturation in the low 90s. Able to achieve 750 mL on incentive spirometry. Strong cough. CARDIOVASCULAR: S1, S2 present. Regular rate and rhythm, sinus rhythm on telemetry. Palpable peripheral pulses bilaterally. No edema present. No calf pain or tenderness noted. GASTROINTESTINAL: Abdomen soft, nontender, nondistended. Active bowel sounds present 4 quadrants. Tolerating diet. Positive bowel movement. GENITOURINARY: Continues to void INTEGUMENTARY: Skin is warm and dry with evidence of good perfusion. Previous chest tube site well approximated and covered with dry intact dressing. NEUROLOGIC: Cranial nerves II through XII intact MUSKULOSKELETAL: Able to move all extremities, strength equal bilaterally, gait normal PSYCHIATRIC: Alert and oriented to person place and time, appropriate affect, intact judgment and insight - Allied health notes Allied health notes reviewed: nursing - Labs CBC & Chem 7: 01/29/21 03:58 01/29/21 03:58 - Imaging and Cardiology Chest x-ray: report reviewed, image reviewed Assessment and Plan Assessment: 1. Fall from standing with subsequent left-sided rib fractures and significant pneumothorax, status post left thoracostomy tube placement by the emergency room physicians 2. Left chest wall pain secondary to above 3. History of significant migraines 4. Current tobacco dependence 5. Current recreational EtOH use. Plan: 1. Please leave chest tube dressing in place for 48 hours, after that maybe remove and shower daily 2. Encourage use of her incentive spirometry 10 times every hour while awake 3. Pain control per current medication regimen 4. Importance of risk modification discussed with the patient including smoking cessation 5. Medical management of other comorbidities per primary care and pulmonary critical care services. 6. May be discharged to home from cardiothoracic standpoint when okay with other services 7. Will see again on an as-needed basis Time with Patient: Greater than 30
[2021-02-02 11:25] VITALS: BP 127/80; PULSE 84; TEMP 98.2
--- NOTE | 2021-02-02 12:49 | P.DS ---
Providers Date of admission: 01/28/21 14:02 Expected date of discharge: 02/02/21 Attending physician: Duran Sheldon Consults: 01/28/21 14:02 Consult Physician Stat Consulting Provider: Rian Palmer Consult Reason/Comments: Hydropneumothorax, rib fractures Do you want consulting provider notified?: Already Contacted Consult Physician Urgent Consulting Provider: Amy Lazo Consult Reason/Comments: Hydropneumothorax, multiple rib fractures Do you want consulting provider notified?: Already Contacted 01/28/21 14:04 Consult to Anesthesia Routine Consulting Provider: Anesthesia,Services Consult Reason/Comments: Multiple rib fractures 01/29/21 15:59 Consult Physician Routine Consulting Provider: Ye Saleh Consult Reason/Comments: left shoulder pain, possible acromial clavicular seperation Do you want consulting provider notified?: Yes Primary care physician: Stated None Hospital Course: Discharge diagnosis 1. Fall with trauma to the left ribs 2. Traumatic large left-sided pneumothorax status post chest tube placement 3. Left rib fractures 4. Nicotine dependence 5. Left AC joint separation Hospital course This is a 50-year-old female who fell down 5 stairs at home 4 days ago with loss of consciousness. She initially presented to the ER on 01/24/2021 and was noted to have left thoracic rib fractures and was discharged home from the ER. She presents back to the also with complaints of worsening pain in the left rib cage and shortness of breath. Oxygen saturation was 91% on room air. And she was mildly tachycardic on admission. Patient did have a computed tomography scan of the chest completed on 01/24/2021 with no evidence of pneumothorax. Her computed tomography scan from today the chest shows a large left-sided pneumo thorax estimated approximate 80% hydropneumothorax component. No mediastinal shift. Several left-sided rib fractures. Patient did have chest tube placed in the ER. Patient was followed by cardiothoracic, pulmonary service and orthopedic service. Patient was able to have chest tube removed yesterday. Her repeat chest x-ray per cardiothoracic team is stable. It showed no significant change. There is a left lower lobe atelectasis and associated effusion. Minimal apical pneumothorax persists. Post med change to the left chest. Patient reports that her pain is controlled. She is tolerating diet. She is up and ambulating. She has been cleared by all consulting physicians for discharge. She is afebrile. Please refer to chart for any further details. Physician [employer] Worker note has been reviewed by physician. Signing provider agrees with the documented findings, assessment, and plan of care. Patient Condition at Discharge: Stable Plan - Discharge Summary New Discharge Prescriptions: New Lidocaine 5% Patch [Lidoderm 5% Patch] 1 patch TOPICAL DAILY #3 patch oxyCODONE-APAP 7.5-325MG [Percocet 7.5-325 mg] 1 each PO Q6HR PRN #12 tab PRN Reason: Pain methocarbamoL [Robaxin] 500 mg PO TID PRN #9 tab PRN Reason: Muscle Spasm Continue ALPRAZolam [Xanax] 1 mg PO Q8HR PRN PRN Reason: Anxiety Discharge Medication List ALPRAZolam [Xanax] 1 mg PO Q8HR PRN 01/28/21 [History] Lidocaine 5% Patch [Lidoderm 5% Patch] 1 patch TOPICAL DAILY #3 patch 02/02/21 [Rx] methocarbamoL [Robaxin] 500 mg PO TID PRN #9 tab 02/02/21 [Rx] oxyCODONE-APAP 7.5-325MG [Percocet 7.5-325 mg] 1 each PO Q6HR PRN #12 tab 02/02/21 [Rx] Follow up Appointment(s)/Referral(s): Sen Sanches DO [REFERRING] - 1-2 Days Ye Saleh MD [STAFF PHYSICIAN] - 2 Weeks Activity/Diet/Wound Care/Special Instructions: DISCHARGE INSTRUCTIONS: 1. Avoid driving for 2 weeks as much as possible 2. No lifting, pushing, or pulling more than 10 pounds for 2 weeks. The physician will advise of any restriction changes. 3. Continue pain control per as needed orders 4. Continue with incentive spirometry and splinting 5. Leave chest tube dressing for 48 hours. After that, remove all dressings and shower daily. 6. Routine incision care. No powders, lotions, ointments on incisions. 7. Smoking cessation counseling provided. Discharge Disposition: HOME SELF-CARE
== END 2021-02-02 16:25 | disposition home or self-care (01) | DRG 200 ==
LOC: EC 10:51 → 2SICU 14:02 → 3SCARD 01-30 10:55
PROVIDERS: ADMIT Surgery; ATTEND Surgery
PROC: 0W9B30Z Drainage of Left Pleural Cavity with Drainage Device, Percutaneous Approach (ICD-10-PCS; principal; 2021-01-28)
DX: S27.2XXA Traumatic hemopneumothorax, initial encounter (principal); J90 Pleural effusion, not elsewhere classified; S22.42XA Multiple fractures of ribs, left side, initial encounter for closed fracture; J98.11 Atelectasis; W10.9XXA Fall (on) (from) unspecified stairs and steps, initial encounter; F17.210 Nicotine dependence, cigarettes, uncomplicated; G43.909 Migraine, unspecified, not intractable, without status migrainosus; Z20.822 Contact with and (suspected) exposure to COVID-19; S43.102A Unspecified dislocation of left acromioclavicular joint, initial encounter; F41.1 Generalized anxiety disorder; E11.9 Type 2 diabetes mellitus without complications; Z82.0 Family history of epilepsy and other diseases of the nervous system; Y92.009 Unspecified place in unspecified non-institutional (private) residence as the place of occurrence of the external cause; H92.22 Otorrhagia, left ear; Z71.6 Tobacco abuse counseling
CPT/HCPCS: 36415; 70480; 71045; 71046; 71250; 80053; 85025; 85610; 85730; 87635; 94760

== ENCOUNTER 2021-02-08 11:17 | Emergency (ER) | payer MEDICARE ==
[2021-02-08 12:34] VITALS: BP 99/73; PULSE 86; RESP 22; TEMP 98.2
--- NOTE | 2021-02-08 13:03 | XR ---
EXAMINATION TYPE: XR chest 1V portable DATE OF EXAM: 02/08/2021 COMPARISON: 02/02/2021 HISTORY: Shortness of breath TECHNIQUE: Single frontal view of the chest is obtained. FINDINGS: Hyperinflation. Left lower lobe infiltrate and small effusion. Chronic rib deformities sug gested. Biapical pleural thickening. Diffuse osteopenia. IMPRESSION: COPD and stable left lower lobe infiltrate and pleural effusion. No definite sizable pne umothorax on today's exam.
--- NOTE | 2021-02-08 13:30 | ED ---
General Adult HPI - General Chief complaint: Shortness of Breath Stated complaint: revisit collasped lung Time Seen by Provider: 02/08/21 12:36 Source: patient, family, RN notes reviewed, old records reviewed Mode of arrival: wheelchair Limitations: no limitations - History of Present Illness Initial comments: 50-year-old female with recent history of traumatic pneumothorax and hemothorax presenting with left-sided chest pain and dyspnea. She had been doing quite well since discharge approximately 5 days ago. This morning she developed some increased pain and had a pulse ox of 92% on home pulse oximetry. She was concerned that there could be recurrent pneumothorax. She denies new injury. She denies central chest pain. - Related Data Home Medications Medication Instructions Recorded Confirmed ALPRAZolam [Xanax] 1 mg PO Q8HR PRN 01/28/21 01/28/21 Previous Rx's Medication Instructions Recorded Lidocaine 5% Patch [Lidoderm 5% 1 patch TOPICAL DAILY #3 patch 02/02/21 Patch] methocarbamoL [Robaxin] 500 mg PO TID PRN #9 tab 02/02/21 oxyCODONE-APAP 7.5-325MG [Percocet 1 each PO Q6HR PRN #12 tab 02/02/21 7.5-325 mg] oxyCODONE HCL/ACETAMINOPHEN 1 tab PO Q6HR PRN 3 Days #12 tab 02/08/21 [Percocet 5-325 mg] Allergies Allergy/AdvReac Type Severity Reaction Status Date / Time ketorolac [From Toradol] AdvReac Nausea & Verified 02/08/21 12:34 Vomiting Review of Systems ROS Statement: Those systems with pertinent positive or pertinent negative responses have been documented in the HPI. ROS Other: All systems not noted in ROS Statement are negative. Past Medical History Past Medical History: No Reported History Additional Past Medical History / Comment(s): migraine headaches History of Any Multi-Drug Resistant Organisms: None Reported Past Surgical History: Hernia Repair, Uterine Ablation Additional Past Surgical History / Comment(s): uumbilical hernia repair, tubal ligation Past Anesthesia/Blood Transfusion Reactions: No Reported Reaction Past Psychological History: No Psychological Hx Reported Smoking Status: Former smoker Past Alcohol Use History: Occasional Past Drug Use History: None Reported - Past Family History Father Family Medical History: No Reported History Mother Family Medical History: Neurologic Disorder Additional Family Medical History / Comment(s): from multiple sclerosis General Exam Limitations: no limitations General appearance: alert, in no apparent distress Head exam: Present: atraumatic, normocephalic Eye exam: Present: normal appearance, PERRL ENT exam: Present: normal exam Neck exam: Present: normal inspection. Absent: tenderness, meningismus Respiratory exam: Present: chest wall tenderness, decreased breath sounds. Absent: respiratory distress, wheezes Cardiovascular Exam: Present: regular rate, normal rhythm GI/Abdominal exam: Present: soft. Absent: distended, tenderness, guarding Extremities exam: Present: normal inspection, normal capillary refill. Absent: pedal edema Neurological exam: Present: alert, oriented X3, CN II-XII intact. Absent: motor sensory deficit Psychiatric exam: Present: normal affect, normal mood Skin exam: Present: warm, dry, intact. Absent: cyanosis, diaphoretic Course Vital Signs 02/08/21 12:31 Temperature 98.2 F Pulse Rate 86 Respiratory 22 Rate Blood Pressure 99/73 O2 Sat by Pulse 94 L Oximetry Medical Decision Making - Medical Decision Making CT performed showing pleural effusion without pneumothorax. No other new findings. Patient is stable for discharge. She does state that she does not have any refill on her medications. Her Percocet will be refilled for 3 days and she will follow-up with her primary care physician. Disposition Clinical Impression: Multiple rib fractures Disposition: HOME SELF-CARE Condition: Good Instructions (If sedation given, give patient instructions): Rib Fracture (ED) Prescriptions: oxyCODONE HCL/ACETAMINOPHEN [Percocet 5-325 mg] 1 tab PO Q6HR PRN 3 Days #12 tab PRN Reason: Pain Is patient prescribed a controlled substance at d/c from ED?: No Referrals: eSn Sanches DO [Primary Care Provider] - 1-2 days Time of Disposition: 13:56
--- NOTE | 2021-02-08 13:50 | CT ---
EXAMINATION TYPE: CT chest wo con DATE OF EXAM: 02/08/2021 COMPARISON: 01/28/2021 HISTORY: Left sided chest pain and shortness of breath. Recent pneumothorax. CT DLP: 168.3 mGycm, Automated exposure control for dose reduction was used. CONTRAST: Performed injected with 0 mL of Isovue 300. TECHNIQUE: Axial images were obtained at 5 mm thick sections. Reconstructed images are reviewed on [employer] computer in the coronal plane. FINDINGS: Portion of the thyroid visualized is normal. There is a small left pleural effusion. Some minimal atelectasis may be in the posterior medial left lung base. Prior pneumothorax has resolved. No enlarged mediastinal or hilar adenopathy is evident. The ascending aorta diameter at the level o f the main pulmonary artery is 2.8 cm. The main pulmonary artery diameter at the bifurcation is 2.[address] sections are obtained through the upper abdomen. Abdomen is essentially unremarkable. IMPRESSIONS: 1. Small left pleural effusion. 2. Resolution of previous large left pneumothorax.
== END 2021-02-08 14:14 | disposition home or self-care (01) ==
LOC: EC 11:17
DX: S22.42XA Multiple fractures of ribs, left side, initial encounter for closed fracture (principal); Z87.891 Personal history of nicotine dependence; X58.XXXA Exposure to other specified factors, initial encounter
CPT/HCPCS: 71045; 71250; 99285

== ENCOUNTER 2021-06-26 08:46 | Inpatient (IN) | payer MEDICARE ==
[2021-06-26] MEDS ORDERED: LORazepam 2 MG/ML INJ IV STA (09:15)
[2021-06-26] MEDS ORDERED: SODIUM CHLORIDE 0.9% 1,000 ML IV STA (09:16)
[2021-06-26 09:30] LABS: Basophils % (A) 1 %; Eosinophils % (A) 0 %; HGB 13.4 gm/dL (11.4-16.0); Lymphocytes # (A) 1.6 k/uL (1.0-4.8); Lymphocytes % (A) 19 %; MCH 38.4 pg (25.0-35.0); MCHC 33.6 g/dL (31.0-37.0); MCV 114.3 fL (80.0-100.0); Macrocytosis Marked; Mean Platelet Volume 7.4; Monocytes # (A) 0.4 k/uL (0-1.0); Monocytes % (A) 5 %; Neutrophils % (A) 73 %; Platelet Count 170 k/uL (150-450); RDW 13.7 % (11.5-15.5); WBC 8.1 k/uL (3.8-10.6)
--- NOTE | 2021-06-26 09:34 | ED ---
General Adult HPI - General Chief complaint: Chest Pain Stated complaint: Chest pain Time Seen by Provider: 06/26/21 08:48 Source: patient Mode of arrival: EMS Limitations: no limitations - History of Present Illness Initial comments: Dictation was produced using [employer] dictation software. please excuse any grammatical, word or spelling errors. Chief Complaint: 51-year-old female presents emergency department for chest pain shortness. History of Present Illness: His 51-year-old female she denies any history of cardiac comorbidities. Patient states that she started having chest pain today. States is like a pressure to substernal area. Patient also had some tingling in her right hand. Patient has history of rib fractures and chest tube thoracostomy. She woke up with these symptoms. Patient reports that over the last 2 months she's been having increasing fatigue and URI symptoms that have been chronic. She she is coughing sometimes is productive of sputum. Denies any constitutional symptoms. She also has pain behind her left calf. No history of PE or DVT. States she's been more sedentary over the last several weeks. The ROS documented in this emergency department record has been reviewed and confirmed by me. Those systems with pertinent positive or negative responses have been documented in the HPI. All other systems are other negative and/or noncontributory. PHYSICAL EXAM: General Impression: Alert and oriented x3, not in acute distress HEENT: Normocephalic atraumatic, extra-ocular movements intact, pupils equal and reactive to light bilaterally, mucous membranes moist. Cardiovascular: Heart regular rate and rhythm Chest: Able to complete full sentences, no retractions, no tachypnea Abdomen: abdomen soft, non-tender, non-distended, no organomegaly Musculoskeletal: Pulses present and equal in all extremities, no peripheral edema, palpatory tenderness to her left mid calf Motor: no focal deficits noted Neurological: CN II-XII grossly intact, no focal motor or sensory deficits noted Skin: Intact with no visualized rashes Psych: Anxious ED course: 51-year-old female's emergency department for chest pain, shortness of breath. Vital signs upon arrival shows tachycardia 125, rest of vital signs within acceptable limits. Laboratory evaluation obtained. CBC unremarkable. Coag panel is negative. D- dimer is 24.7. Metabolic panel except limits. Lactic acidosis 3.3. Cardiac enzymes negative. Venous Doppler of the lower extremity shows popliteal and calf the venous thrombosis. Chest x-ray is nonacute. CT angios the chest shows ulnar embolus in the right lobe artery with segmental occlusion. Patient started on heparin. She'll be admitted to hospitalist No concerns for submassive or massive PE. She has normal blood pressure she's not hypoxic she is slightly tachycardic but has normal troponin. - Related Data Home Medications Medication Instructions Recorded Confirmed ALPRAZolam [Xanax] 1 mg PO Q8HR PRN 01/28/21 06/26/21 Allergies Allergy/AdvReac Type Severity Reaction Status Date / Time ketorolac [From Toradol] AdvReac Nausea & Verified 06/26/21 09:55 Vomiting Review of Systems ROS Statement: Those systems with pertinent positive or pertinent negative responses have been documented in the HPI. ROS Other: All systems not noted in ROS Statement are negative. Past Medical History Past Medical History: No Reported History Additional Past Medical History / Comment(s): migraine headaches History of Any Multi-Drug Resistant Organisms: None Reported Past Surgical History: Hernia Repair, Uterine Ablation Additional Past Surgical History / Comment(s): uumbilical hernia repair, tubal ligation Past Anesthesia/Blood Transfusion Reactions: No Reported Reaction Past Psychological History: No Psychological Hx Reported Smoking Status: Current every day smoker Past Alcohol Use History: Occasional Past Drug Use History: None Reported - Past Family History Father Family Medical History: No Reported History Mother Family Medical History: Neurologic Disorder Additional Family Medical History / Comment(s): from multiple sclerosis General Exam Limitations: no limitations Course Vital Signs 06/26/21 06/26/21 06/26/21 08:48 09:56 10:42 Temperature 98.9 F Pulse Rate 125 H 110 H 108 H Respiratory 22 20 18 Rate Blood Pressure 123/88 106/86 128/87 O2 Sat by Pulse 96 94 L 94 L Oximetry Medical Decision Making - Lab Data Result diagrams: 06/26/21 09:17 06/26/21 09:17 Lab Results 06/26/21 06/26/21 06/26/21 Range/Units 09:16 09:17 09:17 WBC 8.1 (3.8-10.6) k/uL RBC 3.50 L (3.80-5.40) m/uL Hgb 13.4 (11.4-16.0) gm/dL Hct 40.0 (34.0-46.0) % MCV 114.3 H (80.0-100.0) fL MCH 38.4 H (25.0-35.0) pg MCHC 33.6 (31.0-37.0) g/dL RDW 13.7 (11.5-15.5) % Plt Count 170 (150-450) k/uL MPV 7.4 Neutrophils % 73 % Lymphocytes % 19 % Monocytes % 5 % Eosinophils % 0 % Basophils % 1 % Neutrophils # 6.0 (1.3-7.7) k/uL Lymphocytes # 1.6 (1.0-4.8) k/uL Monocytes # 0.4 (0-1.0) k/uL Eosinophils # 0.0 (0-0.7) k/uL Basophils # 0.0 (0-0.2) k/uL Manual Slide Review Performed Poikilocytosis (manual Present Anisocytosis (manual) Present Macrocytosis Marked A Stomatocytes Present PT 9.4 (9.0-12.0) sec INR 0.8 (<1.2) APTT 22.4 (22.0-30.0) sec D-Dimer 24.70 H (<0.60) mg/L FEU Sodium (137-145) mmol/L Potassium (3.5-5.1) mmol/L Chloride (98-107) mmol/L Carbon Dioxide (22-30) mmol/L Anion Gap mmol/L BUN (7-17) mg/dL Creatinine (0.52-1.04) mg/dL Est GFR (CKD-EPI)AfAm (>60 ml/min/1.73 sqM) Est GFR (CKD-EPI)NonAf (>60 ml/min/1.73 sqM) Glucose (74-99) mg/dL Plasma Lactic Acid Anil (0.7-2.0) mmol/L Calcium (8.4-10.2) mg/dL Magnesium (1.6-2.3) mg/dL Total Bilirubin (0.2-1.3) mg/dL AST (14-36) U/L ALT (4-34) U/L Alkaline Phosphatase (38-126) U/L Troponin I <0.012 (0.000-0.034) ng/mL NT-Pro-B Natriuret Pep pg/mL Total Protein (6.3-8.2) g/dL Albumin (3.5-5.0) g/dL 06/26/21 06/26/21 06/26/21 Range/Units 09:17 09:17 09:34 WBC (3.8-10.6) k/uL RBC (3.80-5.40) m/uL Hgb (11.4-16.0) gm/dL Hct (34.0-46.0) % MCV (80.0-100.0) fL MCH (25.0-35.0) pg MCHC (31.0-37.0) g/dL RDW (11.5-15.5) % Plt Count (150-450) k/uL MPV Neutrophils % % Lymphocytes % % Monocytes % % Eosinophils % % Basophils % % Neutrophils # (1.3-7.7) k/uL Lymphocytes # (1.0-4.8) k/uL Monocytes # (0-1.0) k/uL Eosinophils # (0-0.7) k/uL Basophils # (0-0.2) k/uL Manual Slide Review Poikilocytosis (manual Anisocytosis (manual) Macrocytosis Stomatocytes PT (9.0-12.0) sec INR (<1.2) APTT (22.0-30.0) sec D-Dimer (<0.60) mg/L FEU Sodium 136 L (137-145) mmol/L Potassium 3.7 (3.5-5.1) mmol/L Chloride 100 (98-107) mmol/L Carbon Dioxide 21 L (22-30) mmol/L Anion Gap 15 mmol/L BUN 10 (7-17) mg/dL Creatinine 0.48 L (0.52-1.04) mg/dL Est GFR (CKD-EPI)AfAm >90 (>60 ml/min/1.73 sqM) Est GFR (CKD-EPI)NonAf >90 (>60 ml/min/1.73 sqM) Glucose 97 (74-99) mg/dL Plasma Lactic Acid Anil 3.3 H* (0.7-2.0) mmol/L Calcium 7.7 L (8.4-10.2) mg/dL Magnesium 1.6 (1.6-2.3) mg/dL Total Bilirubin 1.1 (0.2-1.3) mg/dL AST 124 H (14-36) U/L ALT 57 H (4-34) U/L Alkaline Phosphatase 118 (38-126) U/L Troponin I (0.000-0.034) ng/mL NT-Pro-B Natriuret Pep 40 pg/mL Total Protein 5.8 L (6.3-8.2) g/dL Albumin 3.3 L (3.5-5.0) g/dL Disposition Clinical Impression: Pulmonary emboli, DVT of lower limb, acute Disposition: ADMITTED IP TO THIS HOSP Condition: Critical Referrals: None,Stated [Primary Care Provider] - 1-2 days
[2021-06-26 09:37] LABS: ALT 57 U/L (4-34); AST 124 U/L (14-36); African American GFR (CKD) >90 (>60 ml/min/1.73 sqM); Albumin 3.3 g/dL (3.5-5.0); Alkaline Phosphatase 118 U/L (38-126); Anion Gap 15 mmol/L; Blood Urea Nitrogen 10 mg/dL (7-17); Calcium 7.7 mg/dL (8.4-10.2); Carbon Dioxide 21 mmol/L (22-30); Chloride 100 mmol/L (98-107); Glucose 97 mg/dL (74-99); Magnesium 1.6 mg/dL (1.6-2.3); Non-African American GFR(CKD) >90 (>60 ml/min/1.73 sqM); Potassium 3.7 mmol/L (3.5-5.1); Sodium 136 mmol/L (137-145); Total Bilirubin 1.1 mg/dL (0.2-1.3); Total Protein 5.8 g/dL (6.3-8.2)
--- NOTE | 2021-06-26 09:44 | XR ---
EXAMINATION TYPE: XR chest 1V portable DATE OF EXAM: 06/26/2021 COMPARISON: Chest x-ray and CT 02/08/2021 HISTORY: Chest pain TECHNIQUE: Single frontal view of the chest is obtained. FINDINGS: There is no focal air space opacity, pleural effusion, or pneumothorax seen. The cardiac silhouette size is within normal limits. There is eventration of right hemidiaphragm as on prior, chuck pical pleural thickening is noted. There are overlying leads. There are prominent lung volumes. The osseous structures are intact, deformities of left chest wall, ribs is chronic, there are healed frac tures. IMPRESSION: No acute process. Interval resolution of patient's left pleural effusion. There is under lying emphysema.
[2021-06-26 09:48] LABS: INR 0.8 (<1.2); Partial Thromboplastin Time 22.4 sec (22.0-30.0); Prothrombin Time 9.4 sec (9.0-12.0)
--- NOTE | 2021-06-26 09:59 | US ---
EXAMINATION TYPE: US venous doppler duplex LE LT DATE OF EXAM: 06/26/2021 9:52 AM COMPARISON: NONE CLINICAL HISTORY: calf pain. SIDE PERFORMED: Left TECHNIQUE: The lower extremity deep venous system is examined utilizing real time linear array sonog yessenia with graded compression, doppler sonography and color-flow sonography. VESSELS IMAGED: Common Femoral Vein Deep Femoral Vein Greater Saphenous Vein * Femoral Vein Popliteal Vein Small Saphenous Vein * Proximal Calf Veins (* superficial vessels) Grayscale, color Doppler abnormality is seen with low-level internal echoes involving the left poplit eal vein, noncompressible and lack of color flow Left Leg: Positive for DVT. There is thrombus seen from mid pop vein through proximal calf vessels. The vessel is distended with internal echoes, no flow and non compressible. IMPRESSION: Deep venous thrombosis left lower extremity. Results relayed telephonically to the referr ing clinician at the time of interpretation.
[2021-06-26] MEDS ORDERED: HEPARIN SODIUM 1,000 UN/ML (10ML VL) IV ONE (10:01)
[2021-06-26] MEDS ORDERED: HEPARIN SODIUM 1,000 UN/ML (10ML VL) IV PRN (10:01)
[2021-06-26] MEDS: HEPARIN SOD,PORK IN 0.45% NACL 25,000 UNIT in 0.45% NACL 1 250ML.BAG IV SCH (10:35)
[2021-06-26 10:42] LABS: Anisocytosis (M) Present; Poikilocytosis (M) Present; Stomatocytes Present
[2021-06-26 10:46] LABS: Influenza A Not Detected (Not Detectd); Influenza B Not Detected (Not Detectd)
--- NOTE | 2021-06-26 11:07 | CT ---
EXAMINATION TYPE: CT angio chest DATE OF EXAM: 06/26/2021 COMPARISON: CT chest 08 February 2021 HISTORY: Positive D-dimer CT DLP: 169.2 mGycm Automated exposure control for dose reduction was used. CONTRAST: CTA scan of the thorax is performed without and with IV Contrast, patient injected with 100 ml mL of Isovue 370, pulmonary embolism protocol. MIP images are created and reviewed. 3D reconstructed imag es are created on an independent workstation and reviewed. FINDINGS: LUNGS: The lungs are grossly clear, there is no concerning parenchymal mass or nodule identified. Ce ntrilobular emphysematous changes are present in the upper lobes There is no pleural effusion or pneu mothorax seen. The tracheobronchial tree is patent. AORTA: No additional significant abnormality is seen. MEDIASTINUM: There is satisfactory enhancement of the pulmonary artery and its branches, there is pul monary embolus noted in the right renal lobe artery with segmental occlusion, axial image #67 through 73. There is right hilar adenopathy. No pericardial effusion is seen. OTHER: Old left-sided rib fractures are now healed. There is a hiatal hernia. Liver shows low attenu ation likely due to hepatic steatosis, some possible focal sparing at the level of the dome, axial im age #106. IMPRESSION: Pulmonary embolus, report relayed to referring clinician at the time of interpretation at exam. Right hilar adenopathy, follow-up is recommended, consider pulmonary consult. PET/CT may be of benefit. Hiatal hernia. Hepatic steatosis. Emphysema.
[2021-06-26] MEDS ORDERED: NALOXONE 0.4 MG/ML 1 ML VIAL IV PRN (11:47)
[2021-06-26] MEDS ORDERED: ACETAMINOPHEN TAB 325 MG TAB PO PRN (11:47)
[2021-06-26] MEDS: MORPHINE SULFATE 4 MG/ML SYRINGE IV PRN ×2 (12:14→15:18)
[2021-06-26] MEDS: SODIUM CHLORIDE 0.9% 1,000 ML IV SCH (13:42)
[2021-06-26] MEDS: ALPRAZolam 1 MG TAB PO PRN ×2 (15:18→23:09)
--- NOTE | 2021-06-26 15:36 | P.HPIM ---
History of Present Illness H&P Date: 06/26/21 Chief Complaint: Shortness of breath Patient is a 51-year-old female with a known history of migraine headaches and history of rib fractures with chest tube in 2020, currently everyday smoker, history of basal cell carcinoma on the nose and left forearm status post resection with clean edges about 2 years ago and occasional alcohol use presents to ER with complaints of chest pain and shortness of breath started this morning when she woke up. Chest pain is mainly in the lower anterior chest bilaterally acidosis with shortness of breath. No nausea or vomiting. No dizziness. Patient states that she noticed left calf tenderness about 3 days ago. No leg swelling. Patient was admitted to the hospital in January 2021 due to the fracture status post fall and complicated with lung collapse and chest tube placement. Patient says that for the past 2 months she has been having fatigue and weakness. She is also complaining of loss of appetite. Patient states that her loss of appetite got worse and after she was started on new migraine headache medication about 2 weeks ago and took only for 4 days. She stopped the medication 5 days ago. Denied any cough or sputum production. No fever no chills. No recent cold night infection. Patient has been having migraine headaches. Patient was tachycardic with heart rate 125 on admission. 94% on room air. CTA chest showed pulmonary embolus, hiatal hernia, hepatic steatosis, emphysema. Venous duplex of the lower extremities DVT left lower extremity. Thrombus seen from mid popliteal through proximal calf vessels. EKG showed sinus rhythm Laboratory data showed WBC 8.1 hemoglobin 13.4 MCV 114.3 and platelets 170 D-dimer level is 24.7 Sodium 136 potassium 3.7 chloride 100 bicarb is 21 BUN 10 and creatinine 0.48 and lactic acid 3.3 on admission Calcium 7.7 magnesium 1.6 AST 124 ALT 57 proBNP 40 and troponin less than 0.012 and total protein 5.8 albumin 3.3 COVID-19 PCR not detected. Review of Systems Constitutional: Patient denies any fever or chills . No generalized weakness or weight loss. Abdomen: Patient denied nausea vomiting and diarrhea and abdominal pain. Cardiovascular: Patient does have chest pain and shortness of breath. Calf tenderness. No leg swelling. Respiratory: patient denied any cough is from production. Positive shortness of breath Neurologic: Patient denied any numbness or tingling headache. Musculoskeletal: Patient denies any complaints of joint swelling or deformity. Skin: Negative Psychiatric: Negative Endocrine: No heat or cold intolerance. No recent weight gain. Genitourinary: No dysuria or hematuria. All other 14 point ROS negative except the above Past Medical History Past Medical History: No Reported History Additional Past Medical History / Comment(s): migraine headaches, rib fractures with chest tube january 2021 History of Any Multi-Drug Resistant Organisms: None Reported Past Surgical History: Hernia Repair, Uterine Ablation Additional Past Surgical History / Comment(s): uumbilical hernia repair, tubal ligation Past Anesthesia/Blood Transfusion Reactions: No Reported Reaction Past Psychological History: No Psychological Hx Reported Smoking Status: Current some day smoker Past Alcohol Use History: Occasional Additional Past Alcohol Use History / Comment(s): Admits to 1-2 drinks per week Past Drug Use History: None Reported - Past Family History Father Family Medical History: No Reported History Mother Family Medical History: Neurologic Disorder Additional Family Medical History / Comment(s): from multiple sclerosis Medications and Allergies Home Medications Medication Instructions Recorded Confirmed Type ALPRAZolam [Xanax] 1 mg PO Q8HR PRN 01/28/21 06/26/21 History Allergies Allergy/AdvReac Type Severity Reaction Status Date / Time ketorolac [From Toradol] AdvReac Nausea & Verified 06/26/21 09:55 Vomiting Physical Exam Vitals: Vital Signs Temp Pulse Pulse Resp BP BP Pulse Ox 06/26/21 14:02 98.2 F 92 17 132/84 93 L 06/26/21 11:30 94 18 105/71 93 L 06/26/21 10:42 108 H 18 128/87 94 L 06/26/21 09:56 110 H 20 106/86 94 L 06/26/21 08:48 98.9 F 125 H 22 123/88 96 Intake and Output 06/26/21 06/26/21 06/26/21 06:59 14:59 22:59 Other: Weight 47.627 kg PHYSICAL EXAMINATION: Patient is lying in the bed comfortably, no acute distress, awake alert and oriented.. HEENT: Normocephalic. Neck is supple. Pupils reactive. Nostrils clear. Oral cavity is moist. Neck reveals no JVD, carotid bruits, or thyromegaly. CHEST EXAMINATION: Trachea is central. Symmetrical expansion. Lung monteiro clear to auscultation and percussion. CARDIAC: Normal S1, S2 with no gallops. No murmurs ABDOMEN: Soft. Bowel sounds normal. No organomegaly. No abdominal bruits. Extremities: reveal no edema. Left calf tenderness No clubbing or cyanosis Neurologically awake, alert, oriented x3 with well-coordinated movements. No focal deficits noted Skin: No rash or skin lesions. Psychiatric: Coperative. Nonsuicidal Musculoskeletal: No joint swelling or deformity. Normal range of motion. Results CBC & Chem 7: 06/26/21 09:17 06/26/21 09:17 Labs: Abnormal Lab Results - Last 24 Hours (Table) 06/26/21 06/26/21 06/26/21 Range/Units 09:17 09:17 09:17 RBC 3.50 L (3.80-5.40) m/uL MCV 114.3 H (80.0-100.0) fL MCH 38.4 H (25.0-35.0) pg Macrocytosis Marked A D-Dimer 24.70 H (<0.60) mg/L FEU Sodium 136 L (137-145) mmol/L Carbon Dioxide 21 L (22-30) mmol/L Creatinine 0.48 L (0.52-1.04) mg/dL Plasma Lactic Acid Anil (0.7-2.0) mmol/L Calcium 7.7 L (8.4-10.2) mg/dL AST 124 H (14-36) U/L ALT 57 H (4-34) U/L Total Protein 5.8 L (6.3-8.2) g/dL Albumin 3.3 L (3.5-5.0) g/dL 06/26/21 Range/Units 09:34 RBC (3.80-5.40) m/uL MCV (80.0-100.0) fL MCH (25.0-35.0) pg Macrocytosis D-Dimer (<0.60) mg/L FEU Sodium (137-145) mmol/L Carbon Dioxide (22-30) mmol/L Creatinine (0.52-1.04) mg/dL Plasma Lactic Acid Anil 3.3 H* (0.7-2.0) mmol/L Calcium (8.4-10.2) mg/dL AST (14-36) U/L ALT (4-34) U/L Total Protein (6.3-8.2) g/dL Albumin (3.5-5.0) g/dL Thrombosis Risk Factor Assmnt - DVT/VTE Prophylaxis DVT/VTE Prophylaxis: Pharmacologic Prophylaxis ordered Assessment and Plan Assessment: Acute pulmonary embolism likely due to recent sedentary life. History of rib fracture status post mechanical fall complicated by chest tube placement in January 2021 Generalized weakness and fatigue Migraine headaches Lactic acidosis 3.3 on admission History of basal cell carcinoma on the tip of the nose and left forearm status post resection about 2 years ago. Hypovolemic hyponatremia Currently everyday smoker DVT prophylaxis patient is already on full anticoagulation Plan: Patient will be continued on telemetry monitoring. Started on heparin drip. Lower extremity duplex scan showed left popliteal DVT. 2-D echocardiogram was ordered. Pulmonary evaluation. Patient will be continued on pain management for migraine headaches. IV hydration with normal saline and follow up sodium level. Lactic acidosis normalizes with IV hydration. TSH level was ordered due to generalized weakness and fatigue. Continue to follow closely. Smoking cessation has been counseled extensively. Time with Patient: Greater than 30
[2021-06-26 17:01] LABS: INR 0.8 (<1.2); Partial Thromboplastin Time 46.2 sec (22.0-30.0); Prothrombin Time 9.5 sec (9.0-12.0)
[2021-06-26] MEDS: HYDROmorphone 1 MG/ML 1 ML SYRINGE IVP PRN ×2 (18:14→23:09)
[2021-06-27] MEDS: HYDROmorphone 1 MG/ML 1 ML SYRINGE IVP PRN ×8 (03:25→22:05)
[2021-06-27] MEDS: ALPRAZolam 1 MG TAB PO PRN ×3 (07:52→20:03)
[2021-06-27 07:55] LABS: Basophils % (A) 1 %; Eosinophils # (A) 0.1 k/uL (0-0.7); Eosinophils % (A) 2 %; HCT 38.1 % (34.0-46.0); HGB 12.7 gm/dL (11.4-16.0); Lymphocytes # (A) 1.4 k/uL (1.0-4.8); Lymphocytes % (A) 28 %; MCH 38.2 pg (25.0-35.0); MCHC 33.4 g/dL (31.0-37.0); MCV 114.5 fL (80.0-100.0); Macrocytosis Marked; Mean Platelet Volume 7.9; Monocytes # (A) 0.3 k/uL (0-1.0); Monocytes % (A) 5 %; Neutrophils # (A) 3.3 k/uL (1.3-7.7); Neutrophils % (A) 64 %; Platelet Count 162 k/uL (150-450); RBC 3.32 m/uL (3.80-5.40); RDW 12.9 % (11.5-15.5); WBC 5.2 k/uL (3.8-10.6)
[2021-06-27 08:09] LABS: African American GFR (CKD) >90 (>60 ml/min/1.73 sqM); Anion Gap 1 mmol/L; Blood Urea Nitrogen 3 mg/dL (7-17); Calcium 7.9 mg/dL (8.4-10.2); Carbon Dioxide 29 mmol/L (22-30); Chloride 102 mmol/L (98-107); Glucose 126 mg/dL (74-99); Non-African American GFR(CKD) >90 (>60 ml/min/1.73 sqM); Potassium 3.2 mmol/L (3.5-5.1); Sodium 132 mmol/L (137-145)
[2021-06-27 09:05] LABS: Anisocytosis (M) Present; Poikilocytosis (M) Present
[2021-06-27] MEDS: HEPARIN SOD,PORK IN 0.45% NACL 25,000 UNIT in 0.45% NACL 1 250ML.BAG IV SCH (10:36)
--- NOTE | 2021-06-27 11:37 | P.CNPUL ---
History of Present Illness Consult date: 06/27/21 Reason for consult: dyspnea History of present illness: 51-year-old female patient who is known to me from a recent hospitalization at the patient came in with somewhat thick left-sided pneumothorax requiring a chest tube insertion and after being successfully treated the patient was discharged home. Note that this was a traumatic pneumothorax after a fall. She is also known to have chronic migraine which really got worse after her fall. Note that during her fall, the patient also sustained rib fractures on the left. She is also known to have skin cancer resected. No active malignancy. As the patient's headache was quite active she became progressively inactive at home and she was doing limited amount of activity. Over this past few days, she developed pain and swelling in her left lower extremity and subsequently she started having some increased shortness of breath and chest pain and the pain was more so on the right. She had diminished appetite. No significant hemoptysis. No cough or sputum production. No fever or chills. She came into the ED and she was quite tachypneic and tachycardic and a heart rate was 125, sinus and her pulse ox was no and 94%. She was given a Doppler of the lower extremity that showed a left popliteal DVT extending to the proximal calf veins. The patient was started on IV heparin. CT angiogram showed a small tiny pulmonary embolism and the right lower lobe pulmonary artery branch. There was also hiatal hernia, old rib fractures, hepatic steatosis and some emphysema with bullous changes in the upper lobes bilaterally. The patient's white cell count was 8.1 with a hemoglobin of 13.4 and platelet count 170. D-dimer was elevated at 24.7. Electrodes were normal. Creatinine was 0.48. Lactic acid level is at 3.8.: COVID 19 testing was negative and the patient has not received her vaccination. She is not been infected with the [employer] system start of the pandemic. No recent travel. No recent surgery. No personal or family history of DVT or pulmonary embolism. Review of Systems Constitutional: Patient denies any fever or chills . No generalized weakness or weight loss. Abdomen: Patient denied nausea vomiting and diarrhea and abdominal pain. Cardiovascular: Patient does have chest pain and shortness of breath. Calf tenderness. No leg swelling. Respiratory: patient denied any cough is from production. Positive shortness of breath Neurologic: Patient denied any numbness or tingling headache. Musculoskeletal: Patient denies any complaints of joint swelling or deformity. Skin: Negative Psychiatric: Negative Endocrine: No heat or cold intolerance. No recent weight gain. Genitourinary: No dysuria or hematuria. All other 14 point ROS negative except the above Past Medical History Past Medical History: No Reported History, Cancer (skin cancer (tip of the nose) and left forarm) Additional Past Medical History / Comment(s): migraine headaches, rib fractures with pneumothorax chest tube january 2021 post fall History of Any Multi-Drug Resistant Organisms: None Reported Past Surgical History: Hernia Repair, Uterine Ablation Additional Past Surgical History / Comment(s): umbilical hernia repair, tubal ligation Past Anesthesia/Blood Transfusion Reactions: No Reported Reaction Past Psychological History: No Psychological Hx Reported Smoking Status: Current some day smoker Past Alcohol Use History: Occasional Additional Past Alcohol Use History / Comment(s): Admits to 1-2 drinks per week Past Drug Use History: None Reported - Past Family History Father Family Medical History: No Reported History Mother Family Medical History: Neurologic Disorder Additional Family Medical History / Comment(s): from multiple sclerosis Medications and Allergies Home Medications Medication Instructions Recorded Confirmed Type ALPRAZolam [Xanax] 1 mg PO Q8HR PRN 01/28/21 06/26/21 History Allergies Allergy/AdvReac Type Severity Reaction Status Date / Time ketorolac [From Toradol] AdvReac Nausea & Verified 06/26/21 09:55 Vomiting Physical Exam Vitals: Vital Signs Temp Pulse Pulse Resp BP BP Pulse Ox 06/27/21 03:23 98.4 F 91 18 111/69 98 06/26/21 23:02 98.3 F 06/26/21 23:01 98 18 111/72 94 L 06/26/21 19:49 98.5 F 89 16 120/74 98 06/26/21 16:00 94 17 120/75 99 06/26/21 14:02 98.2 F 92 17 132/84 93 L 06/26/21 11:30 94 18 105/71 93 L Intake and Output 06/26/21 06/27/21 06/27/21 22:59 06:59 14:59 Intake Total 780 207.783 Balance 780 207.783 Intake: Intake, IV Titration 207.783 Amount Heparin Sod,Pork in 0.45% 207.783 NaCl 25,000 unit In 0.45 % NaCl 1 250ml.bag @ 18 UNITS/KG/HR 8.573 mls/hr IV .Q24H [facility] Rx#: [id number] Oral 240 Blood Product 540 Other: # Voids 1 Patient is lying in the bed comfortably, no acute distress, awake alert and oriented. She is on RA HEENT: Normocephalic. Neck is supple. Pupils reactive. Nostrils clear. Oral cavity is moist. Neck reveals no JVD, carotid bruits, or thyromegaly. CHEST EXAMINATION: Trachea is central. Symmetrical expansion. Lung monteiro clear to auscultation and percussion. CARDIAC: Normal S1, S2 with no gallops. No murmurs ABDOMEN: Soft. Bowel sounds normal. No organomegaly. No abdominal bruits. Extremities: reveal no edema. Left calf tenderness No clubbing or cyanosis Neurologically awake, alert, oriented x3 with well-coordinated movements. No focal deficits noted Skin: No rash or skin lesions. Psychiatric: Coperative. Nonsuicidal Musculoskeletal: No joint swelling or deformity. Normal range of motion. Results - Laboratory Findings CBC and BMP: 06/27/21 07:05 06/27/21 07:05 PT/INR, D-dimer PT 9.5 sec (9.0-12.0) 06/26/21 16:20 INR 0.8 (<1.2) 06/26/21 16:20 D-Dimer 24.70 mg/L FEU (<0.60) H 06/26/21 09:17 Abnormal lab findings: Abnormal Labs 06/26/21 06/26/21 06/26/21 09:17 09:17 09:17 RBC 3.50 L MCV 114.3 H MCH 38.4 H Macrocytosis Marked A APTT D-Dimer 24.70 H Sodium 136 L Potassium Carbon Dioxide 21 L BUN Creatinine 0.48 L Glucose Plasma Lactic Acid Anil Calcium 7.7 L AST 124 H ALT 57 H Total Protein 5.8 L Albumin 3.3 L 06/26/21 06/26/21 06/27/21 09:34 16:20 07:05 RBC 3.32 L MCV 114.5 H MCH 38.2 H Macrocytosis Marked A APTT 46.2 H D-Dimer Sodium Potassium Carbon Dioxide BUN Creatinine Glucose Plasma Lactic Acid Anil 3.3 H* Calcium AST ALT Total Protein Albumin 06/27/21 06/27/21 07:05 07:05 RBC MCV MCH Macrocytosis APTT 41.6 H D-Dimer Sodium 132 L Potassium 3.2 L Carbon Dioxide BUN 3 L Creatinine 0.39 L Glucose 126 H Plasma Lactic Acid Anil Calcium 7.9 L AST ALT Total Protein Albumin - Diagnostic Findings CT scan - chest: image reviewed U/S of Legs: image reviewed Assessment and Plan Plan: 1 acute unprovoked left lower extremity popliteal DVT with secondary pulmonary embolism. Patient has elevated d-dimer. The patient increased shortness of breath and Pain in her left consistent with DVT and pulmonary embolism. Her pulmonary embolism is of a low clot burden and patient is currently on room air oxygen. No major hemodynamic instability. No previous history of hypercoagulability. 2 history of a traumatic large left-sided pneumothorax, estimated to be thinking 80% of the left hemithorax recovered following the chest tube insertion 3 history of chronic migraines 4 COPD secondary to chronic smoking 5 smoker 6 chronic anxiety on Xanax 7 hiatal hernia 8 hepatic steatosis Plan Continued IV heparin Echocardiogram to assess LV function, RV function, strain pattern, pulmonary hypertension Transition this patient oral anticoagulant with the next 24-48 hours Room air pulse ox is above 90% We'll continue to follow
[2021-06-27] MEDS: SODIUM CHLORIDE 0.9% 1,000 ML IV SCH (14:45)
[2021-06-27] MEDS ORDERED: BISMUTH SUBSALICYLATE 4,192 MG/240 ML BOTTLE PO PRN (18:20)
[2021-06-28] MEDS: HYDROmorphone 1 MG/ML 1 ML SYRINGE IVP PRN ×10 (00:39→23:08)
[2021-06-28] MEDS: ALPRAZolam 1 MG TAB PO PRN ×4 (03:20→23:08)
[2021-06-28 08:05] LABS: African American GFR (CKD) >90 (>60 ml/min/1.73 sqM); Anion Gap 5 mmol/L; Blood Urea Nitrogen 3 mg/dL (7-17); Calcium 9.4 mg/dL (8.4-10.2); Carbon Dioxide 27 mmol/L (22-30); Chloride 103 mmol/L (98-107); Glucose 142 mg/dL (74-99); Non-African American GFR(CKD) >90 (>60 ml/min/1.73 sqM); Potassium 3.6 mmol/L (3.5-5.1); Sodium 135 mmol/L (137-145)
[2021-06-28] MEDS ORDERED: ONDANSETRON 4 MG/2 ML VIAL IVP PRN (08:06)
[2021-06-28] MEDS: PANTOPRAZOLE 40 MG/10 ML VIAL IVP SCH ×2 (08:17→20:53)
--- NOTE | 2021-06-28 11:00 | ECHOF ---
Referral Reason:Acute PE MEASUREMENTS -------- HEIGHT: 157.5 cm WEIGHT: 47.6 kg BP: RVIDd: 2.6 cm (< 3.3) IVSd: 0.8 cm (0.6 - 1.1) LVIDd: 3.6 cm (3.9 - 5.3) LVPWd: 0.9 cm (0.6 - 1.1) IVSs: 1.2 cm LVIDs: 3.2 cm LVPWs: 1.5 cm LAESV Index (A-L): 28.64 ml/m Ao Diam: 2.6 cm (2.0 - 3.7) AV Cusp: 1.6 cm (1.5 - 2.6) LA Diam: 3.2 cm (2.7 - 3.8) MV EXCURSION: 14.382 mm (> 18.000) MV EF SLOPE: 91 mm/s (70 - 150) EPSS: 0.6 cm MV E Edson: 0.65 m/s MV DecT: 233 ms MV A Edson: 0.84 m/s MV E/A Ratio: 0.78 RAP: 5.00 mmHg RVSP: 27.93 mmHg FINDINGS -------- Sinus rhythm. This was a technically good study. LV size, wall thickness and systolic function are normal, with an EF greater than 55%. The left peterson tricular size is normal. The right ventricle is normal in size. Normal LA size by volume 22+/-6 ml/m2. The right atrial size is normal. The aortic valve is trileaflet, and appears structurally normal. No aortic stenosis or regurgitation. Mild mitral regurgitation is present. Mild tricuspid regurgitation present. Right ventricular systolic pressure is normal at < 35 mmHg. There is no pulmonic regurgitation present. There is no pericardial effusion. CONCLUSIONS -------- 1. LV size, wall thickness and systolic function are normal, with an EF greater than 55%. 2. The left ventricular size is normal. 3. The right ventricle is normal in size. 4. Normal LA size by volume 22+/-6 ml/m2. 5. The right atrial size is normal. 6. The aortic valve is trileaflet, and appears structurally normal. No aortic stenosis or regurgitati on. 7. Mild mitral regurgitation is present. 8. Mild tricuspid regurgitation present. 9. There is no pericardial effusion. LITERACY TEACHER: Gabriella Arreguin RDCS
--- NOTE | 2021-06-28 13:52 | P.PN ---
<Annmarie Stephenson M - Last Filed: 06/28/21 13:42> Subjective Progress Note Date: 06/28/21 Principal diagnosis: Dyspnea 51-year-old female patient who is known to me from a recent hospitalization at the patient came in with somewhat thick left-sided pneumothorax requiring a chest tube insertion and after being successfully treated the patient was discharged home. Note that this was a traumatic pneumothorax after a fall. She is also known to have chronic migraine which really got worse after her fall. Note that during her fall, the patient also sustained rib fractures on the left. She is also known to have skin cancer resected. No active malignancy. As the patient's headache was quite active she became progressively inactive at home and she was doing limited amount of activity. Over this past few days, she developed pain and swelling in her left lower extremity and subsequently she started having some increased shortness of breath and chest pain and the pain was more so on the right. She had diminished appetite. No significant hemoptysis. No cough or sputum production. No fever or chills. She came into the ED and she was quite tachypneic and tachycardic and a heart rate was 125, sinus and her pulse ox was no and 94%. She was given a Doppler of the lower extremity that showed a left popliteal DVT extending to the proximal calf veins. The patient was started on IV heparin. CT angiogram showed a small tiny pulmonary embolism and the right lower lobe pulmonary artery branch. There was also hiatal hernia, old rib fractures, hepatic steatosis and some emphysema with bullous changes in the upper lobes bilaterally. The patient's white cell count was 8.1 with a hemoglobin of 13.4 and platelet count 170. D-dimer was elevated at 24.7. Electrodes were normal. Creatinine was 0.48. Lactic acid level is at 3.8.: COVID 19 testing was negative and the patient has not received her vaccination. She is not been infected with the [employer] [facility] start of the [facility]. No recent travel. No recent surgery. No personal or family history of DVT or pulmonary embolism. On 06/28/2021 patient seen in follow-up. She's been covered with, denies any worsening shortness of breath, on 2 L of oxygen her pulse ox is 95%, she remains on heparin infusion, 4 acute left popliteal DVT extending to the proximal calf veins. CT angiogram showed small tiny pulmonary embolism in the right lower lobe pulmonary artery branch. Echocardiogram showed preserved LV function with EF of greater than 55%, no aortic stenosis or regurgitation, mild MR, mild TR, right ventricle systolic function less than 35 mmHg. Patient is complaining of pain and swelling in the left extremity. The recommendation from vascular surgery was to elevate the leg and keep it wrapped. Today's labs have been reviewed, PTT is 43.3, sodium is 135, potassium is 3.6, chloride is 103, BUN is 3, creatinine 0.39 Objective - Vital Signs Vital signs: Vital Signs Temp 98.2 F 06/28/21 03:15 Pulse 91 06/28/21 03:15 Resp 20 06/28/21 03:15 BP 122/76 06/28/21 03:15 Pulse Ox 95 06/28/21 03:15 Intake & Output 06/27/21 06/28/21 06/28/21 18:59 06:59 18:59 Intake Total 272.394 71.25 Output Total 200 Balance 272.394 71.25 -200 Intake: Intake, IV Titration 272.394 71.25 Amount Heparin Sod,Pork in 0.45% 272.394 71.25 NaCl 25,000 unit In 0.45 % NaCl 1 250ml.bag @ 18 UNITS/KG/HR 8.573 mls/hr IV .Q24H [facility] Rx#: [id number] Output: Urine 200 Other: Voiding Method Bedside Commode # Voids 2 1 2 - Exam GENERAL EXAM: Alert, very pleasant, 51-year-old white female, a 2 L of oxygen a pulse ox of 95% comfortable in no apparent distress. HEAD: Normocephalic/atraumatic. EYES: Normal reaction of pupils, equal size. Conjunctiva pink, sclera white. NOSE: Clear with pink turbinates. THROAT: No erythema or exudates. NECK: No masses, no JVD, no thyroid enlargement, no adenopathy. CHEST: No chest wall deformity. Symmetrical expansion. LUNGS: Equal air entry with no crackles, wheeze, rhonchi or dullness. CVS: Regular rate and rhythm, normal S1 and S2, no gallops, no murmurs, no rubs ABDOMEN: Soft, nontender. No hepatosplenomegaly, normal bowel sounds, no guarding or rigidity. EXTREMITIES: No clubbing, swelling and tenderness in the left lower extremity related to DVT, no cyanosis, 2+ pulses and upper and lower extremities. MUSCULOSKELETAL: Muscle strength and tone normal. SPINE: No scoliosis or deformity SKIN: No rashes CENTRAL NERVOUS SYSTEM: Alert and oriented -3. No focal deficits, tone is normal in all 4 extremities. PSYCHIATRIC: Alert and oriented -3. Appropriate affect. Intact judgment and insight. - Labs CBC & Chem 7: 06/27/21 07:05 06/28/21 07:40 Labs: Abnormal Lab Results - Last 24 Hours (Table) 06/27/21 06/27/21 06/28/21 Range/Units 15:51 23:01 07:40 APTT 43.3 H 54.7 H (22.0-30.0) sec Sodium 135 L (137-145) mmol/L BUN 3 L (7-17) mg/dL Creatinine 0.39 L (0.52-1.04) mg/dL Glucose 142 H (74-99) mg/dL 06/28/21 Range/Units 07:40 APTT 43.3 H (22.0-30.0) sec Sodium (137-145) mmol/L BUN (7-17) mg/dL Creatinine (0.52-1.04) mg/dL Glucose (74-99) mg/dL Assessment and Plan Plan: Assessment: #1. Acute unprovoked left lower extremity popliteal DVT with secondary pulmonary embolism. Patient presented with increased shortness of breath and pain and swelling in the left lower extremity area patient had elevated d-dimer. Patient is on room air, and her pulmonary embolism is of a low clot burden. Hemodynamically stable, no previous history of hypercoagulability #2. History of a traumatic large left-sided pneumothorax, estimated to be thinking 80% of the left hemithorax recovered following the chest tube insertion #3. History of chronic migraines #4. COPD secondary to chronic smoking #5. Smoker #6. Chronic anxiety on Xanax #7. Hiatal hernia #8. Hepatic steatosis Plan: Continue heparin infusion for next 24 hours No worsening dyspnea, hemodynamically she remains stable She complains of continued pain and swelling in the left lower extremity The recommendation from vascular surgery to keep it wrapped and elevated Echocardiogram results have been noted We'll continue to follow I performed a history & physical examination of the patient and discussed their management with my nurse practitioner, Annmarie Stephenson. I reviewed the nurse practitioner's note and agree with the documented findings and plan of care. Lung sounds are positive for dim breath sounds throughout the lung monteiro. The findings and the impression was discussed with the patient. I attest to the documentation by the nurse practitioner. I have personally seen and examined the patient, performed the documentation and the assessment and plan as written. Number of minutes spent on the visit: [10] Time with Patient: Less than 30 <Rian Palmer - Last Filed: 06/28/21 14:22> Objective - Vital Signs Vital signs: Vital Signs Temp 98.2 F 06/28/21 03:15 Pulse 91 06/28/21 03:15 Resp 20 06/28/21 03:15 BP 122/76 06/28/21 03:15 Pulse Ox 95 06/28/21 03:15 Intake & Output 06/27/21 06/28/21 06/28/21 18:59 06:59 18:59 Intake Total 272.394 71.25 Output Total 200 Balance 272.394 71.25 -200 Intake: Intake, IV Titration 272.394 71.25 Amount Heparin Sod,Pork in 0.45% 272.394 71.25 NaCl 25,000 unit In 0.45 % NaCl 1 250ml.bag @ 18 UNITS/KG/HR 8.573 mls/hr IV .Q24H [facility] Rx#: [id number] Output: Urine 200 Other: Voiding Method Bedside Commode # Voids 2 1 2 - Labs CBC & Chem 7: 06/27/21 07:05 06/28/21 07:40 Labs: Abnormal Lab Results - Last 24 Hours (Table) 06/27/21 06/27/21 06/28/21 Range/Units 15:51 23:01 07:40 APTT 43.3 H 54.7 H (22.0-30.0) sec Sodium 135 L (137-145) mmol/L BUN 3 L (7-17) mg/dL Creatinine 0.39 L (0.52-1.04) mg/dL Glucose 142 H (74-99) mg/dL 06/28/21 Range/Units 07:40 APTT 43.3 H (22.0-30.0) sec Sodium (137-145) mmol/L BUN (7-17) mg/dL Creatinine (0.52-1.04) mg/dL Glucose (74-99) mg/dL Assessment and Plan Plan: This is a joint evaluated was done along with a nurse practitioner. This evaluation was done and more than 20 minutes. I tested information above and I was actively involved in decision-making assessment and plan on care of this patient. I contacted the vascular surgeon. I discussed with her the possibility of doing any intervention regarding this inflammatory DVT in the lef t lower extremity. As long as the clot does not extend into the femoral veins, no intervention was indicated. We will allow IV heparin to run for another 24 hours. Echo results are noted. The patient is doing well. No respiratory difficulties. We'll transition to this patient to oral anticoagulants with the next 24-38 hours. Keep the leg elevated.
[2021-06-28] MEDS: SODIUM CHLORIDE 0.9% 1,000 ML IV SCH (15:59)
[2021-06-28] MEDS: HEPARIN SOD,PORK IN 0.45% NACL 25,000 UNIT in 0.45% NACL 1 250ML.BAG IV SCH (16:50)
[2021-06-29] MEDS: HYDROmorphone 1 MG/ML 1 ML SYRINGE IVP PRN ×8 (02:02→20:33)
[2021-06-29] MEDS: ALPRAZolam 1 MG TAB PO PRN ×4 (05:06→22:34)
[2021-06-29] MEDS: PANTOPRAZOLE 40 MG/10 ML VIAL IVP SCH ×2 (08:36→20:33)
[2021-06-29] MEDS: HEPARIN SOD,PORK IN 0.45% NACL 25,000 UNIT in 0.45% NACL 1 250ML.BAG IV SCH (08:41)
--- NOTE | 2021-06-29 09:53 | P.PN ---
Subjective Progress Note Date: 06/27/21 Patient is a 51-year-old female with a known history of migraine headaches and history of rib fractures with chest tube in 2020, currently everyday smoker, history of basal cell carcinoma on the nose and left forearm status post resection with clean edges about 2 years ago and occasional alcohol use presents to ER with complaints of chest pain and shortness of breath started this morning when she woke up. Chest pain is mainly in the lower anterior chest bilaterally acidosis with shortness of breath. No nausea or vomiting. No dizziness. Patient states that she noticed left calf tenderness about 3 days ago. No leg swelling. Patient was admitted to the hospital in January 2021 due to the fracture status post fall and complicated with lung collapse and chest tube placement. Patient says that for the past 2 months she has been having fatigue and weakness. She is also complaining of loss of appetite. Patient states that her loss of appetite got worse and after she was started on new migraine headache medication about 2 weeks ago and took only for 4 days. She stopped the medication 5 days ago. Denied any cough or sputum production. No fever no chills. No recent cold night infection. Patient has been having migraine headaches. Patient was tachycardic with heart rate 125 on admission. 94% on room air. CTA chest showed pulmonary embolus, hiatal hernia, hepatic steatosis, emphysema. Venous duplex of the lower extremities DVT left lower extremity. Thrombus seen from mid popliteal through proximal calf vessels. EKG showed sinus rhythm Laboratory data showed WBC 8.1 hemoglobin 13.4 MCV 114.3 and platelets 170 D-dimer level is 24.7 Sodium 136 potassium 3.7 chloride 100 bicarb is 21 BUN 10 and creatinine 0.48 and lactic acid 3.3 on admission Calcium 7.7 magnesium 1.6 AST 124 ALT 57 proBNP 40 and troponin less than 0.012 and total protein 5.8 albumin 3.3 COVID-19 PCR not detected. 06/27/2021 Patient is resting in the bed. Very anxious. Still complaining of left lower extremity pain. Patient has been afebrile. No complaints of fever or chills. No chest pain or shortness of breath. Patient is being current on heparin drip for left lower extremity DVT and acute PE. Pulmonary is on board. 2D echocardiogram is pending. Patient is being continued on Dilaudid for pain and and continue with Xanax for anxiety as needed. Laboratory test showed WBC 5.2 hemoglobin 12.7 and platelets 162 sodium 132 potassium 3.2 chloride 102 bicarb is 29 BUN 3 and creatinine 0.3 and calcium 7.9. Current medications reviewed. Objective - Vital Signs Vital signs: Vital Signs Temp 98.1 F 06/27/21 15:11 Pulse 86 06/27/21 15:11 Resp 16 06/27/21 15:11 BP 115/76 06/27/21 15:11 Pulse Ox 98 06/27/21 15:11 Intake & Output 06/26/21 06/27/21 06/27/21 18:59 06:59 18:59 Intake Total 240 540 207.783 Balance 240 540 207.783 Weight 47.627 kg Intake: Intake, IV Titration 207.783 Amount Heparin Sod,Pork in 0.45% 207.783 NaCl 25,000 unit In 0.45 % NaCl 1 250ml.bag @ 18 UNITS/KG/HR 8.573 mls/hr IV .Q24H [facility] Rx#: [id number] Oral 240 Blood Product 540 Other: # Voids 1 2 - Exam PHYSICAL EXAMINATION: Patient is lying in the bed comfortably, no acute distress, awake alert and oriented.. HEENT: Normocephalic. Neck is supple. Pupils reactive. Nostrils clear. Oral cavity is moist. Neck reveals no JVD, carotid bruits, or thyromegaly. CHEST EXAMINATION: Trachea is central. Symmetrical expansion. Lung monteiro clear to auscultation and percussion. CARDIAC: Normal S1, S2 with no gallops. No murmurs ABDOMEN: Soft. Bowel sounds normal. No organomegaly. No abdominal bruits. Extremities: reveal no edema. Left calf tenderness No clubbing or cyanosis Neurologically awake, alert, oriented x3 with well-coordinated movements. No focal deficits noted Skin: No rash or skin lesions. Psychiatric: Coperative. Nonsuicidal, anxious. Musculoskeletal: No joint swelling or deformity. Normal range of motion. - Labs CBC & Chem 7: 06/27/21 07:05 06/28/21 07:40 Labs: Abnormal Lab Results - Last 24 Hours (Table) 06/26/21 06/27/21 06/27/21 Range/Units 16:20 07:05 07:05 RBC 3.32 L (3.80-5.40) m/uL MCV 114.5 H (80.0-100.0) fL MCH 38.2 H (25.0-35.0) pg Macrocytosis Marked A APTT 46.2 H (22.0-30.0) sec Sodium 132 L (137-145) mmol/L Potassium 3.2 L (3.5-5.1) mmol/L BUN 3 L (7-17) mg/dL Creatinine 0.39 L (0.52-1.04) mg/dL Glucose 126 H (74-99) mg/dL Calcium 7.9 L (8.4-10.2) mg/dL 06/27/21 Range/Units 07:05 RBC (3.80-5.40) m/uL MCV (80.0-100.0) fL MCH (25.0-35.0) pg Macrocytosis APTT 41.6 H (22.0-30.0) sec Sodium (137-145) mmol/L Potassium (3.5-5.1) mmol/L BUN (7-17) mg/dL Creatinine (0.52-1.04) mg/dL Glucose (74-99) mg/dL Calcium (8.4-10.2) mg/dL Assessment and Plan Assessment: Acute pulmonary embolism likely due to recent sedentary life. History of rib fracture status post mechanical fall complicated by chest tube placement in January 2021 Generalized weakness and fatigue Migraine headaches Lactic acidosis 3.3 on admission History of basal cell carcinoma on the tip of the nose and left forearm status post resection about 2 years ago. Hypovolemic hyponatremia Currently everyday smoker DVT prophylaxis patient is already on full anticoagulation Plan: Patient will be continued on telemetry monitoring. Started on heparin drip. Lower extremity duplex scan showed left popliteal DVT. 2-D echocardiogram was ordered. Pulmonary is on board. Patient will be continued on pain management for migraine headaches. IV hydration with normal saline and follow up sodium level. Lactic acidosis normalized with IV hydration. TSH level WNL. Continue to follow closely. Smoking cessation has been counseled extensively. Time with Patient: Greater than 30
[2021-06-29 09:54] LABS: African American GFR (CKD) >90 (>60 ml/min/1.73 sqM); Anion Gap 7 mmol/L; Blood Urea Nitrogen 4 mg/dL (7-17); Calcium 8.2 mg/dL (8.4-10.2); Carbon Dioxide 22 mmol/L (22-30); Chloride 108 mmol/L (98-107); Glucose 133 mg/dL (74-99); Non-African American GFR(CKD) >90 (>60 ml/min/1.73 sqM); Potassium 3.6 mmol/L (3.5-5.1); Sodium 137 mmol/L (137-145)
[2021-06-29 09:56] LABS: Basophils % (A) 1 %; Eosinophils # (A) 0.1 k/uL (0-0.7); Eosinophils % (A) 1 %; HCT 37.7 % (34.0-46.0); HGB 12.3 gm/dL (11.4-16.0); Hypochromasia Slight; Lymphocytes # (A) 1.4 k/uL (1.0-4.8); Lymphocytes % (A) 28 %; MCH 38.7 pg (25.0-35.0); MCHC 32.7 g/dL (31.0-37.0); MCV 118.2 fL (80.0-100.0); Macrocytosis Marked; Mean Platelet Volume 8.4; Monocytes # (A) 0.3 k/uL (0-1.0); Monocytes % (A) 7 %; Neutrophils % (A) 62 %; Platelet Count 199 k/uL (150-450); RBC 3.19 m/uL (3.80-5.40); RDW 13.3 % (11.5-15.5); WBC 4.9 k/uL (3.8-10.6)
--- NOTE | 2021-06-29 09:56 | P.PN ---
Subjective Progress Note Date: 06/28/21 Patient is a 51-year-old female with a known history of migraine headaches and history of rib fractures with chest tube in 2020, currently everyday smoker, history of basal cell carcinoma on the nose and left forearm status post resection with clean edges about 2 years ago and occasional alcohol use presents to ER with complaints of chest pain and shortness of breath started this morning when she woke up. Chest pain is mainly in the lower anterior chest bilaterally acidosis with shortness of breath. No nausea or vomiting. No dizziness. Patient states that she noticed left calf tenderness about 3 days ago. No leg swelling. Patient was admitted to the hospital in January 2021 due to the fracture status post fall and complicated with lung collapse and chest tube placement. Patient says that for the past 2 months she has been having fatigue and weakness. She is also complaining of loss of appetite. Patient states that her loss of appetite got worse and after she was started on new migraine headache medication about 2 weeks ago and took only for 4 days. She stopped the medication 5 days ago. Denied any cough or sputum production. No fever no chills. No recent cold night infection. Patient has been having migraine headaches. Patient was tachycardic with heart rate 125 on admission. 94% on room air. CTA chest showed pulmonary embolus, hiatal hernia, hepatic steatosis, emphysema. Venous duplex of the lower extremities DVT left lower extremity. Thrombus seen from mid popliteal through proximal calf vessels. EKG showed sinus rhythm Laboratory data showed WBC 8.1 hemoglobin 13.4 MCV 114.3 and platelets 170 D-dimer level is 24.7 Sodium 136 potassium 3.7 chloride 100 bicarb is 21 BUN 10 and creatinine 0.48 and lactic acid 3.3 on admission Calcium 7.7 magnesium 1.6 AST 124 ALT 57 proBNP 40 and troponin less than 0.012 and total protein 5.8 albumin 3.3 COVID-19 PCR not detected. 06/27/2021 Patient is resting in the bed. Very anxious. Still complaining of left lower extremity pain. Patient has been afebrile. No complaints of fever or chills. No chest pain or shortness of breath. Patient is being current on heparin drip for left lower extremity DVT and acute PE. Pulmonary is on board. 2D echocardiogram is pending. Patient is being continued on Dilaudid for pain and and continue with Xanax for anxiety as needed. Laboratory test showed WBC 5.2 hemoglobin 12.7 and platelets 162 sodium 132 potassium 3.2 chloride 102 bicarb is 29 BUN 3 and creatinine 0.3 and calcium 7.9. 06/28/2021 Patient is currently resting in the bed. Awake alert and patient is currently resting in the bed. oriented. Awake alert and oriented. still complains of left lower extremity Complains of left lower activity pain which is pain which is Shiraz wrapped today. a Today. no complaints of chest pain or shortness of breath. No complaints of chest pain or shortness of breath. Patient is requiring 2 L oxygen via nasal cannula. Continued on heparin drip Continued on heparin. 2D echocardiogram showed ejection fraction 55% with . 2- D echocardiogram showed ejection fraction 20% with mild MR mild TR and right ventricular systolic function is less than 35 Ru-Hist-D mild MR and mild TR and right ventricular systolic function is less than 35 mm Hg.. Patient is req uiring 2 L oxygen via nasal cannula. Vascular surgeryz recommends to elevate the leg recommends to elevate the leg.. Laboratory data showed sodium 135 potassium 3.6 chloride 103 BUN 38 creatinine 0.39 Current medications reviewed. Objective - Vital Signs Vital signs: Vital Signs Temp 98.1 F 06/28/21 12:00 Pulse 94 06/28/21 16:00 Resp 19 06/28/21 16:00 BP 108/74 06/28/21 16:00 Pulse Ox 92 L 06/28/21 16:00 Intake & Output 06/28/21 06/28/21 06/29/21 06:59 18:59 06:59 Intake Total 71.25 114.139 62.693 Output Total 300 Balance 71.25 -185.861 62.693 Intake: Intake, IV Titration 71.25 114.139 62.693 Amount Heparin Sod,Pork in 0.45% 71.25 114.139 62.693 NaCl 25,000 unit In 0.45 % NaCl 1 250ml.bag @ 18 UNITS/KG/HR 8.573 mls/hr IV .Q24H [facility] Rx#: [id number] Output: Urine 300 Other: Voiding Method Bedside Commode Bedside Commode # Voids 1 2 - Exam PHYSICAL EXAMINATION: Patient is lying in the bed comfortably, no acute distress, awake alert and oriented.. HEENT: Normocephalic. Neck is supple. Pupils reactive. Nostrils clear. Oral cavity is moist. Neck reveals no JVD, carotid bruits, or thyromegaly. CHEST EXAMINATION: Trachea is central. Symmetrical expansion. Lung monteiro clear to auscultation and percussion. CARDIAC: Normal S1, S2 with no gallops. No murmurs ABDOMEN: Soft. Bowel sounds normal. No organomegaly. No abdominal bruits. Extremities: reveal no edema. Left calf tenderness No clubbing or cyanosis Neurologically awake, alert, oriented x3 with well-coordinated movements. No focal deficits noted Skin: No rash or skin lesions. Psychiatric: Coperative. Nonsuicidal, anxious. Musculoskeletal: No joint swelling or deformity. Normal range of motion. - Labs CBC & Chem 7: 06/27/21 07:05 06/29/21 08:57 Labs: Abnormal Lab Results - Last 24 Hours (Table) 06/27/21 06/28/21 06/28/21 Range/Units 23:01 07:40 07:40 APTT 54.7 H 43.3 H (22.0-30.0) sec Sodium 135 L (137-145) mmol/L BUN 3 L (7-17) mg/dL Creatinine 0.39 L (0.52-1.04) mg/dL Glucose 142 H (74-99) mg/dL 06/28/21 Range/Units 21:59 APTT 45.1 H (22.0-30.0) sec Sodium (137-145) mmol/L BUN (7-17) mg/dL Creatinine (0.52-1.04) mg/dL Glucose (74-99) mg/dL Assessment and Plan Assessment: Acute pulmonary embolism likely due to recent sedentary life. History of rib fracture status post mechanical fall complicated by chest tube placement in January 2021 Generalized weakness and fatigue Migraine headaches Lactic acidosis 3.3 on admission History of basal cell carcinoma on the tip of the nose and left forearm status post resection about 2 years ago. Hypovolemic hyponatremia Currently everyday smoker DVT prophylaxis patient is already on full anticoagulation Plan: Patient will be continued on telemetry monitoring. Started on heparin drip. Lower extremity duplex scan showed left popliteal DVT. 2-D echocardiogram was ordered. Pulmonary is on board. Patient will be continued on pain management for migraine headaches. IV hydration with normal saline and follow up sodium level. Lactic acidosis normalized with IV hydration. TSH level WNL. Continue to follow closely. Smoking cessation has been counseled extensively. Time with Patient: Greater than 30
[2021-06-29] MEDS: APIXABAN 5 MG TAB PO SCH ×2 (11:02→20:33)
[2021-06-29] MEDS: SODIUM CHLORIDE 0.9% 1,000 ML IV SCH (11:06)
--- NOTE | 2021-06-29 13:04 | P.PN ---
<TadNikole - Last Filed: 06/29/21 13:00> Subjective Progress Note Date: 06/29/21 51-year-old female patient who is known to me from a recent hospitalization at the patient came in with somewhat thick left-sided pneumothorax requiring a chest tube insertion and after being successfully treated the patient was discharged home. Note that this was a traumatic pneumothorax after a fall. She is also known to have chronic migraine which really got worse after her fall. Note that during her fall, the patient also sustained rib fractures on the left. She is also known to have skin cancer resected. No active malignancy. As the patient's headache was quite active she became progressively inactive at home and she was doing limited amount of activity. Over this past few days, she developed pain and swelling in her left lower extremity and subsequently she started having some increased shortness of breath and chest pain and the pain was more so on the right. She had diminished appetite. No significant hemopt ysis. No cough or sputum production. No fever or chills. She came into the ED and she was quite tachypneic and tachycardic and a heart rate was 125, sinus and her pulse ox was no and 94%. She was given a Doppler of the lower extremity that showed a left popliteal DVT extending to the proximal calf veins. The patient was started on IV heparin. CT angiogram showed a small tiny pulmonary embolism and the right lower lobe pulmonary artery branch. There was also hiatal hernia, old rib fractures, hepatic steatosis and some emphysema with bullous changes in the upper lobes bilaterally. The patient's white cell count was 8.1 with a hemoglobin of 13.4 and platelet count 170. D-dimer was elevated at 24.7. Electrodes were normal. Creatinine was 0.48. Lactic acid level is at 3.8.: COVID 19 testing was negative and the patient has not received her vaccination. She is not been infected with the [employer] [facility] start of the pandemic. No recent travel. No recent surgery. No personal or family history of DVT or pulmonary embolism. On 06/28/2021 patient seen in follow-up. She's been covered with, denies any worsening shortness of breath, on 2 L of oxygen her pulse ox is 95%, she remains on heparin infusion, 4 acute left popliteal DVT extending to the proximal calf veins. CT angiogram showed small tiny pulmonary embolism in the right lower lobe pulmonary artery branch. Echocardiogram showed preserved LV function with EF of greater than 55%, no aortic stenosis or regurgitation, mild MR, mild TR, right ventricle systolic function less than 35 mmHg. Patient is complaining of pain and swelling in the left extremity. The recommendation from vascular surgery was to elevate the leg and keep it wrapped. Today's labs have been reviewed, PTT is 43.3, sodium is 135, potassium is 3.6, chloride is 103, BUN is 3, creatinine 0.39 Patient is seen today for 06/29/2021 in follow-up on the selective care unit. She is currently resting quite comfortably in bed. Awake and alert in no acute distress. Still having some left lower extremity pain with positive DVT. No worsening shortness of breath cough or congestion. Maintaining O2 saturations in the 90s on room air. No hemoptysis. She remains on heparin drip. She's been up ambulating in the room. Up in the shower. Objective - Vital Signs Vital signs: Vital Signs Temp 98.9 F 06/29/21 11:32 Pulse 84 06/29/21 11:32 Resp 16 06/29/21 11:32 BP 123/80 06/29/21 11:32 Pulse Ox 95 06/29/21 11:32 Intake & Output 06/28/21 06/29/21 06/29/21 18:59 06:59 18:59 Intake Total 114.139 62.693 358 Output Total 300 Balance -185.861 62.693 358 Intake: Intake, IV Titration 114.139 62.693 Amount Heparin Sod,Pork in 0.45% 114.139 62.693 NaCl 25,000 unit In 0.45 % NaCl 1 250ml.bag @ 18 UNITS/KG/HR 8.573 mls/hr IV .Q24H [facility] Rx#: [id number] Oral 358 Output: Urine 300 Other: Voiding Method Bedside Commode Bedside Commode Toilet # Voids 2 1 - Exam GENERAL EXAM: Alert, active, doesn't 51-year-old female patient, on room air, comfortable in no apparent distress. HEAD: Normocephalic. EYES: Normal reaction of pupils, equal size. NOSE: Clear with pink turbinates. THROAT: No erythema or exudates. NECK: No masses, no JVD. CHEST: No chest wall deformity. LUNGS: Equal air entry with no crackles, wheeze, rhonchi or dullness. CVS: S1 and S2 normal with no audible murmur, regular rhythm. ABDOMEN: No hepatosplenomegaly, normal bowel sounds, no guarding or rigidity. SPINE: No scoliosis or deformity SKIN: No rashes CENTRAL NERVOUS SYSTEM: No focal deficits, tone is normal in all 4 extremities. EXTREMITIES: There is 1+ peripheral edema of the left lower extremity. No clubbing, no cyanosis. Peripheral pulses are intact. - Labs CBC & Chem 7: 06/29/21 08:57 06/29/21 08:57 Labs: Abnormal Lab Results - Last 24 Hours (Table) 06/28/21 06/29/21 06/29/21 Range/Units 21:59 08:57 08:57 RBC 3.19 L (3.80-5.40) m/uL MCV 118.2 H (80.0-100.0) fL MCH 38.7 H (25.0-35.0) pg Macrocytosis Marked A APTT 45.1 H 42.5 H (22.0-30.0) sec Chloride (98-107) mmol/L BUN (7-17) mg/dL Creatinine (0.52-1.04) mg/dL Glucose (74-99) mg/dL Calcium (8.4-10.2) mg/dL 06/29/21 Range/Units 08:57 RBC (3.80-5.40) m/uL MCV (80.0-100.0) fL MCH (25.0-35.0) pg Macrocytosis APTT (22.0-30.0) sec Chloride 108 H (98-107) mmol/L BUN 4 L (7-17) mg/dL Creatinine 0.43 L (0.52-1.04) mg/dL Glucose 133 H (74-99) mg/dL Calcium 8.2 L (8.4-10.2) mg/dL Assessment and Plan Assessment: 1 Acute unprovoked left lower extremity popliteal DVT with secondary pulmonary embolism. Patient presented with increased shortness of breath and pain and swelling in the left lower extremity area patient had elevated d-dimer. Patient is on room air, and her pulmonary embolism is of a low clot burden. Hemodyna mically stable, no previous history of hypercoagulability 2 History of a traumatic large left-sided pneumothorax, estimated to be thinking 80% of the left hemithorax recovered following the chest tube insertion 3 History of chronic migraines 4 COPD secondary to chronic smoking 5 Smoker 6 Chronic anxiety on Xanax 7 Hiatal hernia 8 Hepatic steatosis Plan: The patient was seen and evaluated We'll initiate Eliquis 10 mg twice a day for 1 week Discontinue heparin drip Stable and on room air Home once cleared by medicine Follow-up in our office in 1-2 weeks' I, the cosigning physician, performed a history & physical examination of the patient. Lungs sounds are clear. Maintaining good O2 saturations in the 90s on room air. I discussed the assessment and plan of care with my nurse practitioner, Nikole Mishra. I attest to the above note as dictated by her. I have personally seen and examined the patient, performed the documentation and the assessment and plan as written. Number of minutes spent on the visit: 10. <Rian Palmer - Last Filed: 06/29/21 18:04> Objective - Vital Signs Vital signs: Vital Signs Temp 99.1 F 06/29/21 16:00 Pulse 104 H 06/29/21 16:00 Resp 16 06/29/21 16:00 BP 126/82 06/29/21 16:00 Pulse Ox 95 06/29/21 16:00 Intake & Output 06/28/21 06/29/21 06/29/21 18:59 06:59 18:59 Intake Total 114.139 62.693 1256 Output Total 300 Balance -185.861 62.693 1256 Intake: Intake, IV Titration 114.139 62.693 Amount Heparin Sod,Pork in 0.45% 114.139 62.693 NaCl 25,000 unit In 0.45 % NaCl 1 250ml.bag @ 18 UNITS/KG/HR 8.573 mls/hr IV .Q24H [facility] Rx#: [id number] Oral 1256 Output: Urine 300 Other: Voiding Method Bedside Commode Bedside Commode Toilet # Voids 2 1 2 - Labs CBC & Chem 7: 06/29/21 08:57 06/29/21 08:57 Labs: Abnormal Lab Results - Last 24 Hours (Table) 06/28/21 06/29/21 06/29/21 Range/Units 21:59 08:57 08:57 RBC 3.19 L (3.80-5.40) m/uL MCV 118.2 H (80.0-100.0) fL MCH 38.7 H (25.0-35.0) pg Macrocytosis Marked A APTT 45.1 H 42.5 H (22.0-30.0) sec Chloride (98-107) mmol/L BUN (7-17) mg/dL Creatinine (0.52-1.04) mg/dL Glucose (74-99) mg/dL Calcium (8.4-10.2) mg/dL 06/29/21 Range/Units 08:57 RBC (3.80-5.40) m/uL MCV (80.0-100.0) fL MCH (25.0-35.0) pg Macrocytosis APTT (22.0-30.0) sec Chloride 108 H (98-107) mmol/L BUN 4 L (7-17) mg/dL Creatinine 0.43 L (0.52-1.04) mg/dL Glucose 133 H (74-99) mg/dL Calcium 8.2 L (8.4-10.2) mg/dL Assessment and Plan Assessment: This is a joint evaluation that was done along with a nurse practitioner. The patient is doing well. No complaints. She'll be transitioned and started on oral anticoagulation and the patient will be started on Eliquis. IV heparin will be discontinued. Case was discussed with vascular surgery. No need for any intervention regarding the DVT in the left lower extremity. This evaluation was done and more than 20 minutes. Attest to the information mentioned above.
[2021-06-30] MEDS: HYDROmorphone 1 MG/ML 1 ML SYRINGE IVP PRN ×3 (00:19→09:04)
[2021-06-30 00:44] VITALS: TEMP 98.2
[2021-06-30] MEDS: ALPRAZolam 1 MG TAB PO PRN ×2 (04:30→10:44)
[2021-06-30 06:39] LABS: Basophils % (A) 1 %; Eosinophils # (A) 0.1 k/uL (0-0.7); Eosinophils % (A) 2 %; HGB 10.9 gm/dL (11.4-16.0); Lymphocytes # (A) 1.2 k/uL (1.0-4.8); Lymphocytes % (A) 24 %; MCH 38.4 pg (25.0-35.0); MCV 116.3 fL (80.0-100.0); Mean Platelet Volume 7.7; Monocytes # (A) 0.4 k/uL (0-1.0); Monocytes % (A) 7 %; Neutrophils # (A) 3.4 k/uL (1.3-7.7); Neutrophils % (A) 66 %; Platelet Count 221 k/uL (150-450); RBC 2.84 m/uL (3.80-5.40); RDW 13.5 % (11.5-15.5); WBC 5.2 k/uL (3.8-10.6)
[2021-06-30 06:45] LABS: Macrocytosis Marked
[2021-06-30 06:55] LABS: African American GFR (CKD) >90 (>60 ml/min/1.73 sqM); Anion Gap 3 mmol/L; Blood Urea Nitrogen 3 mg/dL (7-17); Calcium 7.8 mg/dL (8.4-10.2); Carbon Dioxide 26 mmol/L (22-30); Chloride 107 mmol/L (98-107); Glucose 100 mg/dL (74-99); Non-African American GFR(CKD) >90 (>60 ml/min/1.73 sqM); Potassium 3.7 mmol/L (3.5-5.1); Sodium 136 mmol/L (137-145)
[2021-06-30] MEDS ORDERED: PANTOPRAZOLE 40 MG TABLET PO SCH (09:00)
[2021-06-30] MEDS: APIXABAN 5 MG TAB PO SCH (09:03)
[2021-06-30 09:09] VITALS: BP 131/84; PULSE 84; RESP 16
--- NOTE | 2021-06-30 11:25 | P.PN ---
Subjective Progress Note Date: 06/29/21 Patient is a 51-year-old female with a known history of migraine headaches and history of rib fractures with chest tube in 2020, currently everyday smoker, history of basal cell carcinoma on the nose and left forearm status post resection with clean edges about 2 years ago and occasional alcohol use presents to ER with complaints of chest pain and shortness of breath started this morning when she woke up. Chest pain is mainly in the lower anterior chest bilaterally acidosis with shortness of breath. No nausea or vomiting. No dizziness. Patient states that she noticed left calf tenderness about 3 days ago. No leg swelling. Patient was admitted to the hospital in January 2021 due to the fracture status post fall and complicated with lung collapse and chest tube placement. Patient says that for the past 2 months she has been having fatigue and weakness. She is also complaining of loss of appetite. Patient states that her loss of appetite got worse and after she was started on new migraine headache medication about 2 weeks ago and took only for 4 days. She stopped the medication 5 days ago. Denied any cough or sputum production. No fever no chills. No recent cold night infection. Patient has been having migraine headaches. Patient was tachycardic with heart rate 125 on admission. 94% on room air. CTA chest showed pulmonary embolus, hiatal hernia, hepatic steatosis, emphysema. Venous duplex of the lower extremities DVT left lower extremity. Thrombus seen from mid popliteal through proximal calf vessels. EKG showed sinus rhythm Laboratory data showed WBC 8.1 hemoglobin 13.4 MCV 114.3 and platelets 170 D-dimer level is 24.7 Sodium 136 potassium 3.7 chloride 100 bicarb is 21 BUN 10 and creatinine 0.48 and lactic acid 3.3 on admission Calcium 7.7 magnesium 1.6 AST 124 ALT 57 proBNP 40 and troponin less than 0.012 and total protein 5.8 albumin 3.3 COVID-19 PCR not detected. 06/27/2021 Patient is resting in the bed. Very anxious. Still complaining of left lower extremity pain. Patient has been afebrile. No complaints of fever or chills. No chest pain or shortness of breath. Patient is being current on heparin drip for left lower extremity DVT and acute PE. Pulmonary is on board. 2D echocardiogram is pending. Patient is being continued on Dilaudid for pain and and continue with Xanax for anxiety as needed. Laboratory test showed WBC 5.2 hemoglobin 12.7 and platelets 162 sodium 132 potassium 3.2 chloride 102 bicarb is 29 BUN 3 and creatinine 0.3 and calcium 7.9. 06/28/2021 Patient is currently resting in the bed. Awake alert and patient is currently resting in the bed. oriented. Awake alert and oriented. still complains of left lower extremity Complains of left lower activity pain which is pain which is [place] wrapped today. a Today. no complaints of chest pain or shortness of breath. No complaints of chest pain or shortness of breath. Patient is requiring 2 L oxygen via nasal cannula. Continued on heparin drip Continued on heparin. 2D echocardiogram showed ejection fraction 55% with . 2- D echocardiogram showed ejection fraction 20% with mild MR mild TR and right ventricular systolic function is less than 35 Ru-Hist-D mild MR and mild TR and right ventricular systolic function is less than 35 mm Hg.. Patient is req uiring 2 L oxygen via nasal cannula. Vascular surgeryz recommends to elevate the leg recommends to elevate the leg.. Laboratory data showed sodium 135 potassium 3.6 chloride 103 BUN 38 creatinine 0.39 06/29/2021 Patient is currently resting in. Awake alert and oriented 3. Pain is better controlled and is 8 out of 10 today. Patient is being continued on Dilaudid IV for left lower extremity pain and DVT. Patient is also on Xanax. Anticoagulation is being continued. Heparin drip has been discontinued and patient was started on Eliquis starter pack with 10 mg twice daily. Denied any complaints of chest pain or shortness of breath. No headache or dizziness or lightheadedness. Patient is still anxious but improved compared to yesterday. Patient is also complaining of migraine headaches. Laboratory data showed WBC 4.9 hemoglobin 12.3 MCV 118.2 and platelets 199 Sodium 137 potassium 3.6 chloride 108 BUN 4 and creatinine 0.43 and calcium 8.2 Current medications reviewed. Objective - Vital Signs Vital signs: Vital Signs Temp 98.4 F 06/29/21 20:00 Pulse 89 06/29/21 20:00 Resp 18 06/29/21 20:00 BP 104/68 06/29/21 20:00 Pulse Ox 96 06/29/21 20:00 Intake & Output 06/29/21 06/29/21 06/30/21 06:59 18:59 06:59 Intake Total 62.693 1256 Balance 62.693 1256 Intake: Intake, IV Titration 62.693 Amount Heparin Sod,Pork in 0.45% 62.693 NaCl 25,000 unit In 0.45 % NaCl 1 250ml.bag @ 18 UNITS/KG/HR 8.573 mls/hr IV .Q24H [facility] Rx#: [id number] Oral 1256 Other: Voiding Method Bedside Commode Toilet Toilet # Voids 1 2 - Exam PHYSICAL EXAMINATION: Patient is lying in the bed comfortably, no acute distress, awake alert and oriented.. HEENT: Normocephalic. Neck is supple. Pupils reactive. Nostrils clear. Oral cavity is moist. Neck reveals no JVD, carotid bruits, or thyromegaly. CHEST EXAMINATION: Trachea is central. Symmetrical expansion. Lung monteiro clear to auscultation and percussion. CARDIAC: Normal S1, S2 with no gallops. No murmurs ABDOMEN: Soft. Bowel sounds normal. No organomegaly. No abdominal bruits. Extremities: reveal no edema. Left calf tenderness No clubbing or cyanosis Neurologically awake, alert, oriented x3 with well-coordinated movements. No focal deficits noted Skin: No rash or skin lesions. Psychiatric: Coperative. Nonsuicidal, anxious. Musculoskeletal: No joint swelling or deformity. Normal range of motion. - Labs CBC & Chem 7: 06/30/21 06:18 06/30/21 06:18 Labs: Abnormal Lab Results - Last 24 Hours (Table) 06/29/21 06/29/21 06/29/21 Range/Units 08:57 08:57 08:57 RBC 3.19 L (3.80-5.40) m/uL MCV 118.2 H (80.0-100.0) fL MCH 38.7 H (25.0-35.0) pg Macrocytosis Marked A APTT 42.5 H (22.0-30.0) sec Chloride 108 H (98-107) mmol/L BUN 4 L (7-17) mg/dL Creatinine 0.43 L (0.52-1.04) mg/dL Glucose 133 H (74-99) mg/dL Calcium 8.2 L (8.4-10.2) mg/dL Assessment and Plan Assessment: Acute pulmonary embolism likely due to recent sedentary life. History of rib fracture status post mechanical fall complicated by chest tube placement in January 2021 Generalized weakness and fatigue Migraine headaches Lactic acidosis 3.3 on admission History of basal cell carcinoma on the tip of the nose and left forearm status post resection about 2 years ago. Hypovolemic hyponatremia Currently everyday smoker DVT prophylaxis patient is already on full anticoagulation Plan: Patient will be continued on telemetry monitoring. Started on heparin drip. Changed to Eliquis by mouth. Lower extremity duplex scan showed left popliteal DVT. 2-D echocardiogram was ordered. Pulmonary is on board. Patient will be continued on pain management for migraine headaches. Sodium level normalized. Lactic acidosis normalized with IV hydration. TSH level WNL. Continue to follow closely. Smoking cessation has been counseled extensively. Time with Patient: Greater than 30
--- NOTE | 2021-06-30 12:04 | P.PN ---
<Tad,Nikole - Last Filed: 06/30/21 11:59> Subjective Progress Note Date: 06/30/21 51-year-old female patient who is known to me from a recent hospitalization at the patient came in with somewhat thick left-sided pneumothorax requiring a chest tube insertion and after being successfully treated the patient was discharged home. Note that this was a traumatic pneumothorax after a fall. She is also known to have chronic migraine which really got worse after her fall. Note that during her fall, the patient also sustained rib fractures on the left. She is also known to have skin cancer resected. No active malignancy. As the patient's headache was quite active she became progressively inactive at home and she was doing limited amount of activity. Over this past few days, she developed pain and swelling in her left lower extremity and subsequently she started having some increased shortness of breath and chest pain and the pain was more so on the right. She had diminished appetite. No significant hemopt ysis. No cough or sputum production. No fever or chills. She came into the ED and she was quite tachypneic and tachycardic and a heart rate was 125, sinus and her pulse ox was no and 94%. She was given a Doppler of the lower extremity that showed a left popliteal DVT extending to the proximal calf veins. The patient was started on IV heparin. CT angiogram showed a small tiny pulmonary embolism and the right lower lobe pulmonary artery branch. There was also hiatal hernia, old rib fractures, hepatic steatosis and some emphysema with bullous changes in the upper lobes bilaterally. The patient's white cell count was 8.1 with a hemoglobin of 13.4 and platelet count 170. D-dimer was elevated at 24.7. Electrodes were normal. Creatinine was 0.48. Lactic acid level is at 3.8.: COVID 19 testing was negative and the patient has not received her vaccination. She is not been infected with the [employer] [facility] start of the pandemic. No recent travel. No recent surgery. No personal or family history of DVT or pulmonary embolism. On 06/28/2021 patient seen in follow-up. She's been covered with, denies any worsening shortness of breath, on 2 L of oxygen her pulse ox is 95%, she remains on heparin infusion, 4 acute left popliteal DVT extending to the proximal calf veins. CT angiogram showed small tiny pulmonary embolism in the right lower lobe pulmonary artery branch. Echocardiogram showed preserved LV function with EF of greater than 55%, no aortic stenosis or regurgitation, mild MR, mild TR, right ventricle systolic function less than 35 mmHg. Patient is complaining of pain and swelling in the left extremity. The recommendation from vascular surgery was to elevate the leg and keep it wrapped. Today's labs have been reviewed, PTT is 43.3, sodium is 135, potassium is 3.6, chloride is 103, BUN is 3, creatinine 0.39 The patient is seen today for 06/29/2021 in follow-up on the selective care unit. She is currently resting quite comfortably in bed. Awake and alert in no acute distress. Still having some left lower extremity pain with positive DVT. No worsening shortness of breath cough or congestion. Maintaining O2 saturations in the 90s on room air. No hemoptysis. She remains on heparin drip. She's been up ambulating in the room. Up in the shower. The patient is seen today 06/30/2021 in follow-up on the selective care unit. She is sitting up at the bedside. Awake and alert in no acute distress. Her only complaints is occasional migraines and issues with vertigo. No shortness of breath, cough or congestion. Maintaining O2 saturations in the 90s on room air. No significant edema of the lower extremities. She is anticoagulated with Eliquis. Objective - Vital Signs Vital signs: Vital Signs Temp 98.2 F 06/30/21 00:00 Pulse 84 06/30/21 08:00 Resp 16 06/30/21 08:00 BP 131/84 06/30/21 08:00 Pulse Ox 97 06/30/21 08:00 Intake & Output 06/29/21 06/30/21 06/30/21 18:59 06:59 18:59 Intake Total 1256 118 Balance 1256 118 Intake: Oral 1256 118 Other: Voiding Method Toilet Toilet Toilet # Voids 2 2 - Exam GENERAL EXAM: Alert, active, pleasant 51-year-old female patient, on room air, comfortable in no apparent distress. HEAD: Normocephalic. EYES: Normal reaction of pupils, equal size. NOSE: Clear with pink turbinates. THROAT: No erythema or exudates. NECK: No masses, no JVD. CHEST: No chest wall deformity. LUNGS: Equal air entry with no crackles, wheeze, rhonchi or dullness. CVS: S1 and S2 normal with no audible murmur, regular rhythm. ABDOMEN: No hepatosplenomegaly, normal bowel sounds, no guarding or rigidity. SPINE: No scoliosis or deformity SKIN: No rashes CENTRAL NERVOUS SYSTEM: No focal deficits, tone is normal in all 4 extremities. EXTREMITIES: There is trace peripheral edema of the left lower extremity. No clubbing, no cyanosis. Peripheral pulses are intact. - Labs CBC & Chem 7: 06/30/21 06:18 06/30/21 06:18 Labs: Abnormal Lab Results - Last 24 Hours (Table) 06/30/21 06/30/21 Range/Units 06:18 06:18 RBC 2.84 L (3.80-5.40) m/uL Hgb 10.9 L (11.4-16.0) gm/dL Hct 33.0 L (34.0-46.0) % MCV 116.3 H (80.0-100.0) fL MCH 38.4 H (25.0-35.0) pg Macrocytosis Marked A Sodium 136 L (137-145) mmol/L BUN 3 L (7-17) mg/dL Creatinine 0.43 L (0.52-1.04) mg/dL Glucose 100 H (74-99) mg/dL Calcium 7.8 L (8.4-10.2) mg/dL Assessment and Plan Assessment: 1 Acute unprovoked left lower extremity popliteal DVT with secondary pulmonary embolism. Patient presented with increased shortness of breath and pain and swelling in the left lower extremity area patient had elevated d-dimer. Patient is on room air, and her pulmonary embolism is of a low clot burden. Hemodynamically stable, no previous history of hypercoagulability and initiated on Eliquis 2 History of a traumatic large left-sided pneumothorax, recovered following the chest tube insertion 3 History of chronic migraines 4 COPD secondary to chronic smoking 5 Smoker 6 Chronic anxiety on Xanax 7 Hiatal hernia 8 Hepatic steatosis Plan: The patient was seen and evaluated Initiated on Eliquis Stable and on room air Home once cleared by medicine Follow-up in our office in 1-2 weeks' I have personally seen and examined the patient, performed the documentation and the assessment and plan as written. Number of minutes spent on the visit: 10. <HarmantannerRian - Last Filed: 06/30/21 15:43> Objective - Vital Signs Vital signs: Vital Signs Temp 98.2 F 06/30/21 00:00 Pulse 84 06/30/21 08:00 Resp 16 06/30/21 08:00 BP 131/84 06/30/21 08:00 Pulse Ox 97 06/30/21 08:00 Intake & Output 06/29/21 06/30/21 06/30/21 18:59 06:59 18:59 Intake Total 1256 118 Balance 1256 118 Intake: Oral 1256 118 Other: Voiding Method Toilet Toilet Toilet # Voids 2 2 - Labs CBC & Chem 7: 06/30/21 06:18 06/30/21 06:18 Labs: Abnormal Lab Results - Last 24 Hours (Table) 06/30/21 06/30/21 Range/Units 06:18 06:18 RBC 2.84 L (3.80-5.40) m/uL Hgb 10.9 L (11.4-16.0) gm/dL Hct 33.0 L (34.0-46.0) % MCV 116.3 H (80.0-100.0) fL MCH 38.4 H (25.0-35.0) pg Macrocytosis Marked A Sodium 136 L (137-145) mmol/L BUN 3 L (7-17) mg/dL Creatinine 0.43 L (0.52-1.04) mg/dL Glucose 100 H (74-99) mg/dL Calcium 7.8 L (8.4-10.2) mg/dL Assessment and Plan Assessment: I have personally seen and examined the patient and reviewed the documentation. I performed a joint evaluation with the nurse practitioner in this evaluation was done more than 15 minutes. I fully agree with the documentation above and the plan of care.
== END 2021-06-30 13:33 | disposition home or self-care (01) | DRG 176 ==
LOC: EC 08:46 → 3SCARD 12:11 → OBSVTOIN 06-28 11:42
PROVIDERS: ADMIT Internal Medicine; ATTEND Internal Medicine
DX: I26.99 Other pulmonary embolism without acute cor pulmonale (principal); E87.1 Hypo-osmolality and hyponatremia; E87.2 Acidosis; I82.432 Acute embolism and thrombosis of left popliteal vein; Z85.828 Personal history of other malignant neoplasm of skin; E86.1 Hypovolemia; Z20.822 Contact with and (suspected) exposure to COVID-19; F17.200 Nicotine dependence, unspecified, uncomplicated; F41.9 Anxiety disorder, unspecified; G43.909 Migraine, unspecified, not intractable, without status migrainosus; J43.9 Emphysema, unspecified; K44.9 Diaphragmatic hernia without obstruction or gangrene; K76.0 Fatty (change of) liver, not elsewhere classified; Z79.01 Long term (current) use of anticoagulants; Z82.0 Family history of epilepsy and other diseases of the nervous system; Z71.6 Tobacco abuse counseling
CPT/HCPCS: 36415; 71045; 71275; 80048; 80053; 83605; 83735; 83880; 84443; 84484; 85025; 85379; 85610; 85730; 87636; 93005; 93306; 96361; 96374; 96375; 99285

== ENCOUNTER → 2021-07-05 | Outpatient (CLI) | payer MEDICARE ==
[2021-07-05 18:28] LABS: HCT 37.6 % (37.2-46.3); HGB 12.1 g/dL (12.0-15.0); MCH 37.7 pg (27.0-32.0); MCHC 32.2 g/dL (32.0-37.0); MCV 117.1 fL (80.0-97.0); Mean Platelet Volume 10.1 fL (9.5-12.2); NRBC Per 100 WBC 0 /100 WBCS (0.0-0.0); Platelet Count 453 X 10*3/uL (140-440); RBC 3.21 X 10*6/uL (4.10-5.20); RDW 14.9 % (11.5-14.5); WBC 7.46 X 10*3/uL (4.50-10.00)
[2021-07-05 18:50] LABS: African American GFR (CKD) 140.8 (60.0-200.0); Anion Gap 14.9 mmol/L (10.00-18.00); Blood Urea Nitrogen 9.2 mg/dL (9.0-27.0); Calcium 8.3 mg/dL (8.7-10.3); Carbon Dioxide 20.1 mmol/L (20.0-27.5); Non-African American GFR(CKD) 121.4 (60.0-200.0); Potassium 3.6 mmol/L (3.5-5.5)
[2021-07-05 19:02] LABS: Basophils # (A) 0.05 X 10*3/uL (0.00-0.10); Basophils % (A) 0.7 %; Eosinophils # (A) 0.01 X 10*3/uL (0.04-0.35); Eosinophils % (A) 0.1 %; Immature Grans, Automated 0.7 %; Lymphocytes # (A) 1.83 X 10*3/uL (0.90-5.00); Lymphocytes % (A) 24.5 %; Monocytes # (A) 0.58 X 10*3/uL (0.20-1.00); Monocytes % (A) 7.8 %; Neutrophils # (A) 4.94 X 10*3/uL (1.80-7.70); Neutrophils % (A) 66.2 %
[2021-07-05 19:03] LABS: Macrocytosis (M) 3+
== END | disposition home or self-care (01) ==
LOC: LABWHC1 11:05
PROVIDERS: ATTEND Internal Medicine
DX: Z79.01 Long term (current) use of anticoagulants (principal)
CPT/HCPCS: 36415; 80048; 85025

== ENCOUNTER 2021-07-18 05:28 | Observation (INO) | payer MEDICARE ==
[2021-07-18] MEDS ORDERED: DILTIAZEM DRIP BOLUS FROM BAG 1 MG SOLN IV ONE (05:37)
[2021-07-18] MEDS ORDERED: SODIUM CHLORIDE 0.9% 1,000 ML IV STA (05:37)
[2021-07-18] MEDS ORDERED: DILTIAZEM 125 MG in SODIUM CHLORIDE 0.9% 100 ML IV SCH (05:45)
[2021-07-18] MEDS ORDERED: DIAZEPAM 5 MG/ML 2 ML INJ IVP STA (06:26)
[2021-07-18] MEDS ORDERED: ONDANSETRON 4 MG/2 ML VIAL IVP STA (06:26)
--- NOTE | 2021-07-18 06:32 | ED ---
SOB HPI - General Chief Complaint: Shortness of Breath Stated Complaint: Chest Pain, SOB Time Seen by Provider: 07/18/21 05:37 Source: patient, EMS, RN notes reviewed, old records reviewed Mode of arrival: EMS Limitations: no limitations - History of Present Illness Initial Comments: This is a 51-year-old female to the emergency department for evaluation. Patient presents today for evaluation regards to weakness not feeling well chest pain and some significant anxiety. Persistent nausea vomiting. Patient does have a PE, known history of PE with recent diagnosis. Patient feels now like she was he was diagnosed with a PE. No fevers. No travel history sick contacts otherwise. No trauma. No nausea vomiting or diarrhea MD Complaint: shortness of breath, chest pain, pain with inspiration, anxiety -: hour(s) Severity: mild Severity scale (1-10): 1 Quality: dull Consistency: constant, intermittent Improves With: nothing Worsens With: nothing Known History Of: other (Recent diagnosis of PE) Context: recent URI, recent illness Associated Symptoms: denies other symptoms Treatments Prior to Arrival: none - Related Data Home Medications Medication Instructions Recorded Confirmed ALPRAZolam [Xanax] 1 mg PO Q8HR PRN 01/28/21 06/26/21 Previous Rx's Medication Instructions Recorded Apixaban [Eliquis Starter Pack 5 - 10 mg PO DIRECTED 30 Days 06/30/21 (for VTE)] #1 each HYDROcodone/APAP 5-325MG [[place] 1 tab PO Q6HR PRN 3 Days #12 tab 06/30/21 5-325] Allergies Allergy/AdvReac Type Severity Reaction Status Date / Time ketorolac [From Toradol] AdvReac Nausea & Verified 06/26/21 09:55 Vomiting Review of Systems ROS Statement: Those systems with pertinent positive or pertinent negative responses have been documented in the HPI. ROS Other: All systems not noted in ROS Statement are negative. Past Medical History Past Medical History: No Reported History, Cancer, Deep Vein Thrombosis (DVT), Pulmonary Embolus (PE) Additional Past Medical History / Comment(s): migraine headaches, rib fractures with pneumothorax chest tube january 2021 post fall History of Any Multi-Drug Resistant Organisms: None Reported Past Surgical History: Hernia Repair, Uterine Ablation Additional Past Surgical History / Comment(s): umbilical hernia repair, tubal ligation Past Anesthesia/Blood Transfusion Reactions: No Reported Reaction Past Psychological History: No Psychological Hx Reported Smoking Status: Current some day smoker Past Alcohol Use History: Occasional Past Drug Use History: None Reported - Past Family History Father Family Medical History: No Reported History Mother Family Medical History: Neurologic Disorder Additional Family Medical History / Comment(s): from multiple sclerosis General Exam General appearance: alert, in no apparent distress, anxious Head exam: Present: atraumatic, normocephalic, normal inspection Eye exam: Present: normal appearance, PERRL, EOMI. Absent: scleral icterus, conjunctival injection, periorbital swelling ENT exam: Present: normal exam, mucous membranes moist Neck exam: Present: normal inspection. Absent: tenderness, meningismus, lymphadenopathy Respiratory exam: Present: normal lung sounds bilaterally. Absent: respiratory distress, wheezes, rales, rhonchi, stridor Cardiovascular Exam: Present: regular rate, normal rhythm, normal heart sounds. Absent: systolic murmur, diastolic murmur, rubs, gallop, clicks GI/Abdominal exam: Present: soft, normal bowel sounds. Absent: distended, tenderness, guarding, rebound, rigid Extremities exam: Present: normal inspection, full ROM, normal capillary refill. Absent: tenderness, pedal edema, joint swelling, calf tenderness Back exam: Present: normal inspection Neurological exam: Present: alert, oriented X3, CN II-XII intact Psychiatric exam: Present: normal affect, normal mood Skin exam: Present: warm, dry, intact, normal color. Absent: rash Course Vital Signs 07/18/21 05:33 Temperature 98.7 F Pulse Rate 99 Respiratory 18 Rate Blood Pressure 129/83 O2 Sat by Pulse 95 Oximetry - Reevaluation(s) Reevaluation #1: 07/18/21 07:18 Medical record is reviewed Reevaluation #2: 07/18/21 07:18 Patient symptoms are mildly improved currently Medical Decision Making - Medical Decision Making 51-year-old female DF for evaluation. Patient has positive history of PE coming in for recurrent chest pain headache does not feel well nauseous no vomiting and otherwise doesn't feel well. Patient be admitted for continued monitoring - EKG Data -: EKG Interpreted by Me (EKG is sinus tachycardia 100 PA 180 QRS 78 QTc 389) Disposition Clinical Impression: Weakness, Pulmonary emboli, Chest pain Disposition: ADMITTED IP TO THIS HOSP Condition: Fair Is patient prescribed a controlled substance at d/c from ED?: No Referrals: Venus Jones MD [Primary Care Provider] - 1-2 days
--- NOTE | 2021-07-18 06:48 | XR ---
EXAMINATION TYPE: XR chest 1V portable DATE OF EXAM: 07/18/2021 COMPARISON: Chest x-ray and CT chest June 26, 2021 HISTORY: Weakness. TECHNIQUE: Single AP portable frontal upright view of the chest is obtained. FINDINGS: There is mild chronic emphysematous change without suspicious new focal air space opacity, pleural effusion, or pneumothorax seen. The cardiac silhouette size remains within normal limits. O ld posterior lateral left upper mid rib fractures are redemonstrated. IMPRESSION: Chronic changes without acute pulmonary process.
[2021-07-18] MEDS ORDERED: MORPHINE SULFATE 4 MG/ML SYRINGE IV PRN (07:15)
[2021-07-18] MEDS ORDERED: LORazepam 2 MG/ML INJ IV PRN (07:15)
[2021-07-18] MEDS ORDERED: NALOXONE 0.4 MG/ML 1 ML VIAL IV PRN (07:15)
[2021-07-18 07:18] LABS: Basophils % (A) 0 %; Eosinophils # (A) 0.1 k/uL (0-0.7); Eosinophils % (A) 1 %; HCT 40.9 % (34.0-46.0); HGB 13.8 gm/dL (11.4-16.0); Lymphocytes % (A) 9 %; MCH 38.4 pg (25.0-35.0); MCHC 33.9 g/dL (31.0-37.0); MCV 113.2 fL (80.0-100.0); Macrocytosis Marked; Mean Platelet Volume 7.7; Monocytes # (A) 0.4 k/uL (0-1.0); Monocytes % (A) 4 %; Neutrophils # (A) 9.3 k/uL (1.3-7.7); Neutrophils % (A) 85 %; Platelet Count 216 k/uL (150-450); RBC 3.61 m/uL (3.80-5.40); RDW 13.6 % (11.5-15.5); WBC 10.9 k/uL (3.8-10.6)
[2021-07-18 07:36] LABS: ALT 71 U/L (4-34); African American GFR (CKD) >90 (>60 ml/min/1.73 sqM); Albumin 4.2 g/dL (3.5-5.0); Anion Gap 13 mmol/L; Blood Urea Nitrogen 8 mg/dL (7-17); Carbon Dioxide 23 mmol/L (22-30); Chloride 95 mmol/L (98-107); Glucose 113 mg/dL (74-99); Non-African American GFR(CKD) >90 (>60 ml/min/1.73 sqM); Phosphorus 3.6 mg/dL (2.5-4.5); Sodium 131 mmol/L (137-145); Total Protein 7.3 g/dL (6.3-8.2)
[2021-07-18 07:49] LABS: AST 172 U/L (14-36); Alkaline Phosphatase 103 U/L (38-126); Magnesium 1.9 mg/dL (1.6-2.3); Potassium 5.1 mmol/L (3.5-5.1)
[2021-07-18 08:00] LABS: INR 0.9 (<1.2); Partial Thromboplastin Time 24.1 sec (22.0-30.0); Prothrombin Time 9.8 sec (9.0-12.0)
--- NOTE | 2021-07-18 08:38 | CT ---
EXAMINATION TYPE: CT angio chest DATE OF EXAM: 07/18/2021 COMPARISON: CTA chest June 26, 2021 and older studies. HISTORY: SOB, chest pressure CT DLP: 181.5 mGycm. Automated Exposure Control for Dose Reduction was Utilized. CONTRAST: CTA scan of the thorax is performed with IV Contrast, patient injected with 76 mL of Isovue 370, pulm onary embolism protocol. MIP Images are created on CT scanner and reviewed. FINDINGS: LUNGS: Mild to moderate chronic emphysematous change bilaterally is redemonstrated. No new suspicious focal consolidation or groundglass opacity. No pleural effusion or pneumothorax is seen bilaterally. MEDIASTINUM: There is satisfactory enhancement of the pulmonary artery and its branches, there is per sistent but improved pulmonary emboli towards the right middle lobe axial images 73 through 76 for re ference. No new or left-sided pulmonary emboli. There are no new greater than 1 cm hilar or mediastin al lymph nodes. No cardiomegaly or pericardial effusion is seen. Satisfactory enhancement of the ao rta without aneurysm or dissection. Diffuse wall thickening along the course of the esophagus with sm all sized hiatal hernia. Correlate for esophagitis and/or gastroesophageal reflux. No new right ventr icular dilatation. OTHER: Visualized liver remains markedly heterogeneous hypodense consistent with marked fatty infiltr ation.. IMPRESSION: Persistent right middle lobe pulmonary emboli though improved from most recent CT. No new suspicious acute pulmonary process.
[2021-07-18 08:42] LABS: Anisocytosis (M) Present; Poikilocytosis (M) Present; Stomatocytes Present
[2021-07-18] MEDS: SODIUM CHLORIDE 0.9% 1,000 ML IV SCH ×3 (09:03→22:46)
[2021-07-18 09:47] LABS: Appearance,Urine Clear (Clear); Bilirubin,Urine Negative (Negative); Blood,Urine Negative (Negative); Color,Urine Light Yellow; Glucose,Urine (UA) Negative (Negative); Ketones,Urine 4+ (Negative); Leukocyte Esterase,Urine Negative (Negative); Nitrite,Urine Negative (Negative); Protein,Urine Trace (Negative); Urobilinogen,Urine <2.0 mg/dL (<2.0)
[2021-07-18 09:53] LABS: Amphetamine Screen,Urine Not Detected (NotDetected); Barbiturate Screen,Urine Not Detected (NotDetected); Benzodiazepines Screen,Urine Detected (NotDetected); Cocaine Screen,Urine Not Detected (NotDetected); Methadone Screen, Urine Not Detected (NotDetected); Opiate Screen,Urine Not Detected (NotDetected); Oxycodone Screen, Urine Not Detected (NotDetected); Phencyclidine Screen,Urine Not Detected (NotDetected); Tricyclic Antidepressant,Urine Not Detected (NotDetected); Urn Cannabinoid Scrn Detected (NotDetected)
[2021-07-18 10:25] LABS: Specific Gravity,Urine >1.050 (1.001-1.035)
[2021-07-18] MEDS: ONDANSETRON 4 MG/2 ML VIAL IVP PRN ×2 (11:23→19:58)
[2021-07-18] MEDS: diazePAM 2 MG TAB PO PRN ×2 (13:30→19:56)
--- NOTE | 2021-07-18 13:52 | P.HPIM ---
History of Present Illness H&P Date: 07/18/21 Chief Complaint: Emesis 51 year old woman with history of recently diagnosed pulmonary embolism and DVT, as well as history of migraines, presented for evaluation of emesis. Pt tells me that she has had nausea, vomiting, and headaches for 2 days and has not been able to keep down food. She worries because she has at times vomiting up her eliquis and wasn't sure if her PE would get worse. However, she denies f,c, cp, palps, syncope, cough, dyspnea, abd pain, dysuria, dyschezia, numbness/weakness of extremities In the ER, patient was afebrile, 128/83, HR 99, 95% on room air. CBC with mildly leukocytosis, otherwise unremarkable. Chemistries significant for hypona tremia, hypochloremia, and mild hyperkalemia. LFTs show AST/ALT of 172/71. Troponin was 0.024, BNP 25. UA showed trace protein and 4+ ketones. UTox significant for benzos and marijuana. EKG shows sinus tachycardia with no evidence of ischemia. CTA showed persistent right middle lobe PE which looks improved. CXR shows chronic emphysematous changes without new focal airspace disease. All Systems reviewed and pertinent positives and negatives noted in HPI, all other symptoms are negative Gen: awake, alert HEENT: normocephalic, atraumatic, good hearing acuity, moist mucous membranes Resp: good air exchange, breathing comfortably with no accessory muscle use CVS: good distal perfusion x 4, GI: soft, NTTP, ND : no SPT, no CVAT, caballero catheter not present MSK: no pitting edema, no clubbing Neuro: non-focal, moving all extremities Psych: cooperative, euthymic mood Labs and imaging reviewed as above Assessment/plan: Gastroenteritis Nausea and vomiting -Admit to observation -Zofran when necessary -Covid liquid diet, advance as tolerated -Valium 3 times a day when necessary for nausea History of primary embolism Migraines -Continue home Apixiban -Tylenol when necessary Patient is a full code Past Medical History Past Medical History: No Reported History, Cancer, Deep Vein Thrombosis (DVT), Pulmonary Embolus (PE) Additional Past Medical History / Comment(s): migraine headaches, rib fractures with pneumothorax chest tube january 2021 post fall History of Any Multi-Drug Resistant Organisms: None Reported Past Surgical History: Hernia Repair, Uterine Ablation Additional Past Surgical History / Comment(s): umbilical hernia repair, tubal ligation Past Anesthesia/Blood Transfusion Reactions: No Reported Reaction Past Psychological History: No Psychological Hx Reported Smoking Status: Current some day smoker Past Alcohol Use History: Occasional Additional Past Alcohol Use History / Comment(s): Admits to 1-2 drinks per week Past Drug Use History: None Reported Additional Drug Use History / Comment(s): na - Past Family History Father Family Medical History: No Reported History Mother Family Medical History: Neurologic Disorder Additional Family Medical History / Comment(s): from multiple sclerosis Medications and Allergies Home Medications Medication Instructions Recorded Confirmed Type ALPRAZolam [Xanax] 1 mg PO Q8HR PRN 01/28/21 07/18/21 History HYDROcodone/APAP 5-325MG [[place] 1 tab PO Q6HR PRN 3 Days #12 tab 06/30/21 07/18/21 Rx 5-325] Apixaban [Eliquis Starter Pack See Taper PO DIRECTED 07/18/21 07/18/21 History (for VTE)] Allergies Allergy/AdvReac Type Severity Reaction Status Date / Time ketorolac [From Toradol] AdvReac Nausea & Verified 07/18/21 11:51 Vomiting Physical Exam Osteopathic Statement: *. No significant issues noted on an osteopathic structural exam other than those noted in the History and Physical/Consult. Vitals: Vital Signs Temp Pulse Pulse Resp BP BP Pulse Ox 07/18/21 12:51 97.6 F 100 18 150/84 95 07/18/21 11:00 90 17 106/87 97 07/18/21 08:59 93 17 121/82 98 07/18/21 05:37 24 07/18/21 05:33 98.7 F 99 18 129/83 95 Intake and Output 07/17/21 07/18/21 07/18/21 22:59 06:59 14:59 Other: Weight 49.895 kg 49.895 kg Results CBC & Chem 7: 07/18/21 07:07 07/18/21 07:07 Labs: Abnormal Lab Results - Last 24 Hours (Table) 07/18/21 07/18/21 07/18/21 Range/Units 07:07 07:07 09:35 WBC 10.9 H (3.8-10.6) k/uL RBC 3.61 L (3.80-5.40) m/uL MCV 113.2 H (80.0-100.0) fL MCH 38.4 H (25.0-35.0) pg Neutrophils # 9.3 H (1.3-7.7) k/uL Macrocytosis Marked A Sodium 131 L (137-145) mmol/L Chloride 95 L (98-107) mmol/L Creatinine 0.42 L (0.52-1.04) mg/dL Glucose 113 H (74-99) mg/dL Calcium 8.0 L (8.4-10.2) mg/dL Total Bilirubin 2.0 H (0.2-1.3) mg/dL AST 172 H (14-36) U/L ALT 71 H (4-34) U/L Ur Specific [place] >1.050 H (1.001-1.035) Urine Protein Trace H (Negative) Urine Ketones 4+ H (Negative) U Benzodiazepines Scrn Detected H (NotDetected) U Marijuana (THC) Screen Detected H (NotDetected) Thrombosis Risk Factor Assmnt - Choose All That Apply Each Factor Represents 1 point: Age 41-60 years Thrombosis Risk Factor Assessment Total Risk Factor Score: 1 Thrombosis Risk Factor Assessment Level: Low Risk
[2021-07-18] MEDS ORDERED: BENZOCAINE/MENTHOL LOZENG 1 EACH LOZENGE MUCOUS MEM PRN (16:16)
[2021-07-18] MEDS: CALCIUM CARBONATE 500 MG CHEWABLE PO PRN ×2 (17:04→22:46)
[2021-07-18] MEDS: APIXABAN 5 MG TAB PO SCH (19:56)
[2021-07-18] MEDS ORDERED: HYDROmorphone 0.5 MG/0.5 ML SYRINGE IVP STA (19:56)
[2021-07-18] MEDS ORDERED: NON FORMULARY DRUG (Apixaban [Eliquis Starter Pack (For Vte)] 5 MG Packet) PO SCH (21:00)
[2021-07-19] MEDS: diazePAM 2 MG TAB PO PRN ×2 (02:12→08:43)
[2021-07-19] MEDS: MAG HYDROX/AL HYDROX/SIMETH 30 ML CUP PO PRN ×2 (02:15→08:38)
[2021-07-19] MEDS: CALCIUM CARBONATE 500 MG CHEWABLE PO PRN (05:13)
[2021-07-19] MEDS: ONDANSETRON 4 MG/2 ML VIAL IVP PRN (05:27)
[2021-07-19] MEDS: SODIUM CHLORIDE 0.9% 1,000 ML IV SCH (05:28)
[2021-07-19 07:47] VITALS: BP 116/74; PULSE 72; RESP 18; TEMP 98.1
[2021-07-19] MEDS: APIXABAN 5 MG TAB PO SCH (08:39)
[2021-07-19 10:43] LABS: Basophils # (A) 0.03 X 10*3/uL (0.00-0.10); Basophils % (A) 0.6 %; Eosinophils # (A) 0.02 X 10*3/uL (0.04-0.35); Eosinophils % (A) 0.4 %; HCT 39.3 % (37.2-46.3); HGB 12.8 g/dL (12.0-15.0); Immature Grans, Automated 0.6 %; Lymphocytes # (A) 1.26 X 10*3/uL (0.90-5.00); Lymphocytes % (A) 23.6 %; MCH 36.7 pg (27.0-32.0); MCHC 32.6 g/dL (32.0-37.0); MCV 112.6 fL (80.0-97.0); Mean Platelet Volume 10.4 fL (9.5-12.2); Monocytes # (A) 0.55 X 10*3/uL (0.20-1.00); Monocytes % (A) 10.3 %; NRBC Per 100 WBC 0 /100 WBCS (0.0-0.0); Neutrophils # (A) 3.45 X 10*3/uL (1.80-7.70); Neutrophils % (A) 64.5 %; Platelet Count 185 X 10*3/uL (140-440); RBC 3.49 X 10*6/uL (4.10-5.20); RDW 14.6 % (11.5-14.5); WBC 5.34 X 10*3/uL (4.50-10.00)
[2021-07-19 11:03] LABS: African American GFR (CKD) 130.8 (60.0-200.0); Albumin/Globulin Ratio 1.9 (1.60-3.17); Anion Gap 16.9 mmol/L (10.00-18.00); BUN/Creat Ratio 4.2 Ratio (12.00-20.00); Blood Urea Nitrogen 2.1 mg/dL (9.0-27.0); Calcium 9.3 mg/dL (8.7-10.3); Carbon Dioxide 25.1 mmol/L (20.0-27.5); Globulin 2.1 g/dL (1.6-3.3); Non-African American GFR(CKD) 112.9 (60.0-200.0); Potassium 3.7 mmol/L (3.5-5.5); Total Bilirubin 0.8 mg/dL (0.30-1.20); Total Protein 6.1 g/dL (6.2-8.2)
[2021-07-19] MEDS ORDERED: MAG HYDROX/AL HYDROX/SIMETH 30 ML, HYOSCYAMINE ELIXIR 10 ML, LIDOCAINE VISCOUS 2% 10 ML PO ONE ×3 (11:15)
--- NOTE | 2021-07-19 12:32 | P.DS ---
Providers Date of admission: 07/18/21 07:15 Expected date of discharge: 07/19/21 Attending physician: Xuan Peters MD Primary care physician: Karen [facility] Hospital Course: Discharge Diagnosis: Intractable nausea and vomiting, possibly secondary to cannabinoid hyperemesis versus gastroenteritis Transaminitis, improved with IV hydration Hyponatremia, improved with IV hydration Leukocytosis, reactive, improved with IV hydration History of pulmonary emboli, continue home Apixaban Chronic migraines, continue home pain management regimen Hospital Course: Patient is a very pleasant 51-year-old female with a past medical history of recently diagnosed pulmonary emboli and DVT as well as chronic migraines. Patient presented to the emergency department on 07/18/21 with a chief complaint of intractable vomiting. Patient underwent full evaluation in the emergency department and was found to have mild leukocytosis with WBC count of 10.9, h yponatremia with sodium of 131 and transaminitis with total bili of 2.0, AST of 172, and ALT of 71. Urinalysis negative for infection. Urine drug screen positive for benzodiazepines and marijuana. CTA chest was completed revealing persistent right middle lobe pulmonary emboli showing improvement when compared to previous CT with no acute cardiopulmonary process. Chest x-ray revealing mild chronic emphysematous changes negative for acute cardiopulmonary process. EKG sinus tachycardia at 100 bpm with no noted T-wave or ST abnormalities. Patient admitted to the observation unit and underwent IV hydration and treatment of nausea and vomiting with anti-emetics. Patient is now able to hold down oral fluids and food and denies having any other complaints. Repeat labs reveal resolution of hyponatremia and leukocytosis as well as improvement of transaminitis after IV fluid hydration. Patient is medically stable for discharge at this time, patient given name of GI specialist for follow up outpatient. Patient strongly encouraged for complete cessation of all marijuana use. Physical examination: Patient seen and examined at bedside. Patient reports she is tolerating oral intake with soup and vlad crackers and holding down fluids without any further episodes of nausea or vomiting. Patient does report strong burning sensation from her throat down to her stomach, patient was given a GI cocktail resulting in improvement of the symptoms. Morning labs reviewed showing no significant abnormalities. Vital signs unremarkable with BP 116/74, heart rate 72, respiratory rate 18, SpO2 98% on room air and temp of 98.1F. Patient is medically stable for discharge at this time. Vital signs reviewed and stable. General: Nontoxic, no distress and appears stated age. Derm: Skin warm and dry, normal coloration for ethnicity. Head: Atraumatic, normocephalic and symmetric. Eyes: EOMs intact, no lid lag, and anicteric sclera Mouth: no lip lesions, mucus membranes moist Cardiovascular: regular rate and rhythm with normal S1S2, no murmur, positive posterior tibial pulses bilaterally, and cap refill < 2 seconds. Lungs: Respirations even, regular, and unlabored on room air. Lungs CTA bilaterally, no rhonchi, no rales, no wheezing, and no accessory muscle usage. Abdominal: soft, nontender to palpation, no guarding, no appreciable organomegaly Ext: ROM intact. No gross muscle atrophy, no edema, no contractures Neuro: Speech clear, face symmetrical and CN II-XII grossly intact with no noted focal neuro deficits Psych: Alert and oriented to person, place, time, and situation. Appropriate and pleasant affect. A total of 39 minutes of time were spent preparing this complex discharge summary. Patient Condition at Discharge: Stable Plan - Discharge Summary Discharge Rx Participant: No New Discharge Prescriptions: New Prochlorperazine [Compazine] 10 mg PO Q6H PRN #24 tab PRN Reason: Nausea And Vomiting Continue ALPRAZolam [Xanax] 1 mg PO Q8HR PRN PRN Reason: Anxiety Apixaban [Eliquis Starter Pack (for VTE)] See Taper PO DIRECTED HYDROcodone/APAP 5-325MG [[place] 5-325] 1 tab PO Q6HR PRN 3 Days #12 tab PRN Reason: Pain Discharge Medication List ALPRAZolam [Xanax] 1 mg PO Q8HR PRN 01/28/21 [History] HYDROcodone/APAP 5-325MG [[place] 5-325] 1 tab PO Q6HR PRN 3 Days #12 tab 06/30/21 [Rx] Apixaban [Eliquis Starter Pack (for VTE)] See Taper PO DIRECTED 07/18/21 [History] Prochlorperazine [Compazine] 10 mg PO Q6H PRN #24 tab 07/19/21 [Rx] Follow up Appointment(s)/Referral(s): Venus Jones MD [Primary Care Provider] - 1-2 days Jennifer Renee MD [STAFF PHYSICIAN] - 1 Week Activity/Diet/Wound Care/Special Instructions: Activity: As tolerated. Take breaks as needed. Diet: Heart healthy and carb consistent diet. Avoid salts, or foods with hidden salts such as canned or boxed foods and frozen dinners. Extra salt makes your heart work harder and traps the fluid in your body for longer. Special Instructions: Take all of your medications as directed and remember to keep all of your doctor's appointments and follow-up as needed. Strongly encourage cessation of all marijuana use. Thank you for allowing us to participate in your care, it was truly a pleasure having you for our patient!!!
== END 2021-07-19 14:40 | disposition home or self-care (01) ==
LOC: EC 05:28 → 6NMEDSUR 07:15
PROVIDERS: ADMIT Internal Medicine; ATTEND Internal Medicine
DX: I26.99 Other pulmonary embolism without acute cor pulmonale (principal); R07.9 Chest pain, unspecified; R53.1 Weakness; E87.8 Other disorders of electrolyte and fluid balance, not elsewhere classified; E87.1 Hypo-osmolality and hyponatremia; R74.01 Elevation of levels of liver transaminase levels; E87.5 Hyperkalemia; D72.829 Elevated white blood cell count, unspecified; G43.809 Other migraine, not intractable, without status migrainosus; Z98.51 Tubal ligation status; Z98.890 Other specified postprocedural states; F17.200 Nicotine dependence, unspecified, uncomplicated; Z87.898 Personal history of other specified conditions; Z79.01 Long term (current) use of anticoagulants; Z88.6 Allergy status to analgesic agent; Z87.81 Personal history of (healed) traumatic fracture
CPT/HCPCS: 96376 ×3; 96361 ×2; 96375 ×2; 96374; 99285; 36415; 93005; 83880; 80053 ×2; 83605; 83735; 84100; 84443; 84484; 85025 ×2; 85610; 85730; 81003; 80306; 71045; 71275; G0378 ×2; J3360; J2405 ×2; J1170; Q9967

== ENCOUNTER → 2021-07-23 | Outpatient (CLI) | payer MEDICARE ==
[2021-07-23 11:21] LABS: Ionized Calcium 4.8 mg/dL (4.5-5.3)
[2021-07-23 11:39] LABS: Magnesium 2.3 mg/dL (1.6-2.3)
== END | disposition home or self-care (01) ==
LOC: LABWHC1 10:45
PROVIDERS: ATTEND Internal Medicine
DX: I82.402 Acute embolism and thrombosis of unspecified deep veins of left lower extremity (principal); I26.99 Other pulmonary embolism without acute cor pulmonale; E53.8 Deficiency of other specified B group vitamins; G47.00 Insomnia, unspecified
CPT/HCPCS: 36415; 82330; 82607; 82746; 83735

== ENCOUNTER 2021-08-08 22:32 | Inpatient (IN) | payer MEDICARE ==
[2021-08-08] MEDS ORDERED: SODIUM CHLORIDE 0.9% 1,000 ML IV ONE (23:05)
--- NOTE | 2021-08-08 23:05 | ED ---
Chest Pain HPI - General Chief Complaint: Chest Pain Stated Complaint: chest pain Time Seen by Provider: 08/08/21 22:39 Source: patient, EMS Mode of arrival: EMS Limitations: physical limitation - History of Present Illness Initial Comments: This patient is a 51-year-old woman who presents to be evaluated for epigastric pain that radiates to her back. She states that this had come on over the course the past day. Patient has not been feeling well since Monday. She states she is having one of her usual migraine headaches. She describes them as being frontal, constant, squeezing. This is not the worst headache of life. She states that the headaches caused her to stop eating and drinking because she gets very nauseated. She has not had much oral intake since Monday. Patient denies fever or chills. No neck stiffness. Related to this chest pain she is not having cough, dyspnea, diaphoresis. She has nausea but attributes this to her migraine headaches. Patient also notes that she recently had DVT and associated PE and she is taking eliquis. MD Complaint: chest pain -: hour(s) Onset: during rest Pain Location: substernal Pain Radiation: back Severity: severe Quality: aching Consistency: constant Improves With: nothing Worsens With: nothing Anginal Symptoms: nausea Treatments Prior to Arrival: other (On steroidal) - Related Data Home Medications Medication Instructions Recorded Confirmed ALPRAZolam [Xanax] 1 mg PO Q8HR PRN 01/28/21 08/09/21 Apixaban [Eliquis] 5 mg PO BID 08/09/21 08/09/21 Previous Rx's Medication Instructions Recorded HYDROcodone/APAP 7.5-325MG [[place] 1 each PO Q6HR PRN #8 tab 08/11/21 7.5-325] Omeprazole [PriLOSEC] 20 mg PO AC-BID #20 cap 08/11/21 Thiamine [Vitamin B-1] 100 mg PO BID-W/MEALS #30 tab 08/11/21 Allergies Allergy/AdvReac Type Severity Reaction Status Date / Time ketorolac [From Toradol] AdvReac Nausea & Verified 08/09/21 07:35 Vomiting lactose AdvReac Unknown Verified 08/09/21 18:44 nicotine [From Habitrol] AdvReac Nausea & Verified 08/09/21 12:41 Vomiting Review of Systems ROS Statement: Those systems with pertinent positive or pertinent negative responses have been documented in the HPI. ROS Other: All systems not noted in ROS Statement are negative. Constitutional: Denies: fever, chills, weakness Respiratory: Denies: cough, dyspnea Cardiovascular: Reports: as per HPI, chest pain. Denies: palpitations, orthopnea, edema, syncope Gastrointestinal: Reports: as per HPI, abdominal pain, nausea, vomiting. Denies: diarrhea, constipation, hematemesis, melena, hematochezia Genitourinary: Denies: dysuria, hematuria Musculoskeletal: Denies: back pain Skin: Denies: rash Neurological: Reports: headache. Denies: weakness, numbness Psychiatric: Reports: anxiety EKG Findings - EKG Results: EKG: interpreted by GINGER, sinus rhythm, normal axis, normal QRS, normal ST/T EKG shows: tachycardia (Rate 116 bpm) Past Medical History Past Medical History: No Reported History, Cancer, Deep Vein Thrombosis (DVT), Pulmonary Embolus (PE) Additional Past Medical History / Comment(s): migraine headaches, rib fractures with pneumothorax chest tube january 2021 post fall History of Any Multi-Drug Resistant Organisms: None Reported Past Surgical History: Hernia Repair, Uterine Ablation Additional Past Surgical History / Comment(s): umbilical hernia repair, tubal ligation Past Anesthesia/Blood Transfusion Reactions: No Reported Reaction Past Psychological History: No Psychological Hx Reported Smoking Status: Current some day smoker Past Alcohol Use History: Occasional Past Drug Use History: None Reported - Past Family History Father Family Medical History: No Reported History Mother Family Medical History: Neurologic Disorder Additional Family Medical History / Comment(s): from multiple sclerosis General Exam Limitations: physical limitation General appearance: alert, in distress Head exam: Present: atraumatic, normocephalic Eye exam: Present: normal appearance. Absent: scleral icterus, conjunctival injection ENT exam: Present: mucous membranes dry Neck exam: Present: normal inspection, full ROM. Absent: tenderness, meningismus Respiratory exam: Present: normal lung sounds bilaterally. Absent: respiratory distress, wheezes, rales, rhonchi, stridor Cardiovascular Exam: Present: normal rhythm, tachycardia, normal heart sounds. Absent: systolic murmur, diastolic murmur, rubs, gallop GI/Abdominal exam: Present: soft, tenderness (There is mild epigastric tenderness without rebound or guarding), hypoactive bowel sounds. Absent: distended, guarding, rebound, rigid, mass, pulsatile mass, hernia Extremities exam: Present: normal inspection, normal capillary refill. Absent: pedal edema, calf tenderness Back exam: Present: normal inspection. Absent: CVA tenderness (R), CVA tenderness (L) Neurological exam: Present: alert, oriented X3, CN II-XII intact. Absent: motor sensory deficit Skin exam: Present: warm, dry, intact, normal color. Absent: rash Course Vital Signs 08/08/21 08/08/21 08/08/21 22:50 22:59 23:00 Temperature 96.9 F L Pulse Rate 117 H 118 H Respiratory 14 23 15 Rate Blood Pressure 108/77 O2 Sat by Pulse 97 Oximetry 08/08/21 08/09/21 08/09/21 23:30 00:00 00:02 Temperature Pulse Rate 123 H 118 H 112 H Respiratory 29 H 14 24 Rate Blood Pressure 108/77 117/77 119/85 O2 Sat by Pulse 96 99 97 Oximetry 08/09/21 08/09/21 08/09/21 00:30 00:48 01:00 Temperature Pulse Rate 103 H 111 H 112 H Respiratory 16 24 16 Rate Blood Pressure 119/85 116/85 116/85 O2 Sat by Pulse 97 95 97 Oximetry 08/09/21 08/09/21 08/09/21 01:30 02:00 02:30 Temperature Pulse Rate 108 H 109 H 103 H Respiratory 16 16 14 Rate Blood Pressure 129/86 118/84 119/87 O2 Sat by Pulse 95 94 L 94 L Oximetry 08/09/21 08/09/21 08/09/21 03:00 03:30 07:39 Temperature 98.4 F Pulse Rate 101 H 98 99 Respiratory 17 20 18 Rate Blood Pressure 141/95 136/95 151/99 O2 Sat by Pulse 93 L 96 98 Oximetry 08/09/21 08:06 Temperature Pulse Rate 98 Respiratory 18 Rate Blood Pressure O2 Sat by Pulse Oximetry Chest Pain MDM - MDM Issues 51-year-old woman presenting her main complaint is epigastric chest pain radiating to her back. She also has complaint of headache but states this is fairly typical of her migraines just persisting longer than usual. Patient is found to have lab results consistent with pancreatitis. She also is having anion gap metabolic acidosis. Suspect she has some underlying lactic acidosis as she is very dry clinically. Also elevation of transaminase levels. Patient's further questioned she does not take any Tylenol-containing medications. She does not use any home analgesic medication other than some occasional nonsteroidals [id number]. Related to alcohol, the patient states she drinks may once a week with her neighbors, occasionally twice a week but only a few drinks at a time. She has not had alcohol for number days now. Case discussed with admitting hospitalist and treatment recommendations are incorporated. Disposition Clinical Impression: Pancreatitis, High anion gap metabolic acidosis Disposition: ADMITTED IP TO THIS HOSP Condition: Stable Is patient prescribed a controlled substance at d/c from ED?: No
[2021-08-08 23:34] LABS: Basophils % (A) 0 %; Eosinophils % (A) 0 %; HCT 45.4 % (34.0-46.0); HGB 14.5 gm/dL (11.4-16.0); Hypochromasia Slight; Lymphocytes # (A) 1.4 k/uL (1.0-4.8); Lymphocytes % (A) 13 %; MCH 39.3 pg (25.0-35.0); MCV 122.7 fL (80.0-100.0); Macrocytosis Marked; Mean Platelet Volume 9.1; Monocytes # (A) 0.4 k/uL (0-1.0); Monocytes % (A) 4 %; Neutrophils # (A) 8.6 k/uL (1.3-7.7); Neutrophils % (A) 81 %; Platelet Count 301 k/uL (150-450); RDW 14.6 % (11.5-15.5); WBC 10.6 k/uL (3.8-10.6)
[2021-08-08 23:47] LABS: ALT 71 U/L (4-34); African American GFR (CKD) >90 (>60 ml/min/1.73 sqM); Albumin 3.8 g/dL (3.5-5.0); Amylase 123 U/L (30-110); Anion Gap 29 mmol/L; Blood Urea Nitrogen 10 mg/dL (7-17); Calcium 7.4 mg/dL (8.4-10.2); Chloride 103 mmol/L (98-107); Non-African American GFR(CKD) >90 (>60 ml/min/1.73 sqM); Sodium 138 mmol/L (137-145); Total Protein 6.5 g/dL (6.3-8.2)
--- NOTE | 2021-08-08 23:53 | XR ---
EXAMINATION TYPE: XR chest 2V DATE OF EXAM: 08/08/2021 COMPARISON: 07/18/2021 HISTORY: Chest pain TECHNIQUE: FINDINGS: There is no heart failure nor confluent pneumonic infiltrate. Costophrenic angles are clear . There are chest leads. Bony thorax is intact. IMPRESSION: No active cardiopulmonary disease. Normal heart. No change.
[2021-08-09 00:07] LABS: INR 0.8 (<1.2); Partial Thromboplastin Time 23.4 sec (22.0-30.0); Prothrombin Time 9.3 sec (9.0-12.0)
[2021-08-09 00:09] LABS: Glucose 47 mg/dL (74-99)
[2021-08-09 00:10] LABS: AST 321 U/L (14-36); Alkaline Phosphatase 121 U/L (38-126); Carbon Dioxide 6 mmol/L (22-30); Lipase 2390 U/L (23-300)
[2021-08-09] MEDS ORDERED: DEXTROSE 50% SYRINGE 50 ML IVP STA (00:59)
[2021-08-09 01:06] LABS: Glucose,Whole Blood 52 mg/dL (75-99)
[2021-08-09 01:33] LABS: Glucose,Whole Blood 240 mg/dL (75-99)
--- NOTE | 2021-08-09 02:51 | CT ---
EXAMINATION TYPE: CT chest angio for PE DATE OF EXAM: 08/09/2021 COMPARISON: 07/18/2021 HISTORY: left sided chest pain/elevated d-dimer. history of previous PE CT DLP: 184.9 mGycm Automated exposure control for dose reduction was used. CONTRAST: Performed with IV Contrast, patient injected with 65ml mL of Isovue 370. There are Three-D postprocessed images. The lungs are clear of infiltrate. There is no evidence of a pulmonary mass. Heart size is normal. No pericardial effusion. No pleural effusion. There is no mediastinal adenopathy. There are no hilar masses. Thoracic aorta is intact. No aneurysm or dissection. The ascending aorta measures 2.7 cm. There is normal contrast opacification of the pulmonary arteries. No filling defect. There is diffuse fatty infiltration of the liver. The thoracic vertebra. Intact. No compression fracture. Sternum is intact. IMPRESSION: No evidence of pulmonary embolism. Fatty infiltration of the liver. There is clearing of the right middle lobe emboli compared to the exam.
[2021-08-09] MEDS ORDERED: MORPHINE SULFATE 4 MG/ML SYRINGE IV STA (04:02)
[2021-08-09] MEDS ORDERED: SODIUM CHLORIDE 0.9% 1,000 ML IV ONE (04:04)
[2021-08-09 04:23] LABS: Glucose,Whole Blood 169 mg/dL (75-99)
[2021-08-09] MEDS ORDERED: SODIUM CHLORIDE 0.9% 1,000 ML IV STA (05:35)
[2021-08-09] MEDS ORDERED: ONDANSETRON 4 MG/2 ML VIAL IVP PRN (06:47)
[2021-08-09] MEDS ORDERED: NALOXONE 0.4 MG/ML 1 ML VIAL IV PRN (06:47)
[2021-08-09] MEDS ORDERED: SODIUM CHLORIDE 0.9% 1,000 ML IV SCH (07:00)
[2021-08-09] MEDS: MORPHINE SULFATE 4 MG/ML SYRINGE IV PRN ×4 (07:43→20:48)
[2021-08-09 07:51] LABS: Glucose,Whole Blood 144 mg/dL (75-99)
--- NOTE | 2021-08-09 08:07 | US ---
EXAMINATION TYPE: US abdomen limited DATE OF EXAM: 08/09/2021 COMPARISON: NONE CLINICAL HISTORY: attention RUQ. Intermittent episodes in past couple months of back pain (lumbar are a today), chest pain, RUQ pain, nausea and vomiting. EXAM MEASUREMENTS: Liver Length: 16.6 cm Gallbladder Wall: 0.2 cm CBD: 0.58 cm Right Kidney: 8.7 x 5.1 x 3.4 cm Pancreas: Tail obscured by overlying bowel gas Liver: mildly heterogeneous; attenuated posteriorly suggests fatty liver Gallbladder: wnl Evidence for sonographic Norman's sign: yes CBD: upper limits of normal Right Kidney: No hydronephrosis or masses seen IMPRESSION: 1. Nonspecific pattern of liver can be seen with hepatic steatosis or hepatocellular disease includin g hepatitis. Correlate clinically.
[2021-08-09 08:15] LABS: ALT 82 U/L (4-34); AST 373 U/L (14-36); African American GFR (CKD) >90 (>60 ml/min/1.73 sqM); Albumin 3.7 g/dL (3.5-5.0); Alkaline Phosphatase 124 U/L (38-126); Anion Gap 20 mmol/L; Blood Urea Nitrogen 8 mg/dL (7-17); Calcium 7.6 mg/dL (8.4-10.2); Carbon Dioxide 11 mmol/L (22-30); Chloride 105 mmol/L (98-107); Glucose 164 mg/dL (74-99); Non-African American GFR(CKD) >90 (>60 ml/min/1.73 sqM); Potassium 4.5 mmol/L (3.5-5.1); Sodium 136 mmol/L (137-145); Total Bilirubin 1.2 mg/dL (0.2-1.3); Total Protein 6.7 g/dL (6.3-8.2)
[2021-08-09] MEDS ORDERED: FAMOTIDINE 20 MG TAB PO SCH (09:00)
[2021-08-09] MEDS ORDERED: ALPRAZolam 1 MG TAB PO PRN (09:43)
[2021-08-09] MEDS: APIXABAN 5 MG TAB PO SCH ×2 (10:01→20:46)
[2021-08-09] MEDS ORDERED: LORazepam 2 MG/ML INJ IV PRN (11:19)
[2021-08-09] MEDS ORDERED: THIAMINE 100 MG/ML 2 ML VIAL IM STA (11:19)
--- NOTE | 2021-08-09 12:10 | P.HPIM ---
History of Present Illness Patient is a pleasant 51-year-old male came in with compensative severe epigastric pain radiating to the back along with the nausea. Patient denies drinking alcohol but upon further questioning she admits to drinking alcohol at the bases. Patient appears to have a colic hepatitis patient has recent DVT on Eliquis doesn't know the etiology of DVT was noted known. Patient's father is at bedside she did tell me that patient has been declining for some time and was having epigastric abdominal pain for about 3 months. Patient epigastric abdominal pain is burning as a sharp in nature. Patient is found to have pancreatitis. Patient is presently on clear liquid diet tolerating it okay. Patient does have metabolic acidosis secondary to lactic acidosis which is improving. REVIEW OF SYSTEMS: CONSTITUTIONAL: No fever, no malaise, no fatigue. HEENT: No recent visual problems or hearing problems. Denied any sore throat. CARDIOVASCULAR: No chest pain, orthopnea, PND, no palpitations, no syncope. PULMONARY: No shortness of breath, no cough, no hemoptysis. GASTROINTESTINAL: As mentioned in the interval history NEUROLOGICAL: No headaches, no weakness, no numbness. HEMATOLOGICAL: Denies any bleeding or petechiae. GENITOURINARY: Denies any burning micturition, frequency, or urgency. MUSCULOSKELETAL/RHEUMATOLOGICAL: Denies any joint pain, swelling, or any muscle pain. ENDOCRINE: Denies any polyuria or polydipsia. The rest of the 14-point review of systems is negative. PHYSICAL EXAMINATION: GENERAL: The patient is alert and oriented x3, not in any acute distress. Thin built cachectic female HEENT: Pupils are round and equally reacting to light. EOMI. No scleral icterus. No conjunctival pallor. Normocephalic, atraumatic. No pharyngeal erythema. No thyromegaly. CARDIOVASCULAR: S1 and S2 present. No murmurs, rubs, or gallops. PULMONARY: Chest is clear to auscultation, no wheezing or crackles. ABDOMEN: Soft, nontender, nondistended, normoactive bowel sounds. No palpable organomegaly. MUSCULOSKELETAL: No joint swelling or deformity. EXTREMITIES: No cyanosis, clubbing, or pedal edema. NEUROLOGICAL: Gross neurological examination did not reveal any focal deficits. SKIN: No rashes. Assessment and plan -Acute enteritis and at all colic hepatitis no evidence of gallstones on the ultrasound patient will be continued on IV fluids and use clear liquid diet advance as tolerated. -Alcohol abuse and present alcohol withdrawals: Continue with Ativan CIWA protocol. -Recent the popliteal DVT unprovoked DVT for which patient will need to be on lifelong anticoagulation COPD without any acute exacerbation -Nicotine use: Counseling was provided and patient is willing to quit smoking -Metabolic acidosis anion gap at work acidosis secondary to lactic acidosis and non-anion gap metabolic acidosis secondary to hyperchloremia from IV fluids -Acute alcoholic hepatitis -Alcoholic gastritis for which patient the will be on Protonix DVT prophylaxis: On Eliquis Past Medical History Past Medical History: Cancer, COPD, Deep Vein Thrombosis (DVT), Pulmonary Embolus (PE) Additional Past Medical History / Comment(s): Migraine headaches, 2020 fall with L rib fractures with L pneumothorax/chest tube, hiatal hernia, R PE, L lower ex tremity DVT, skin cancer removal History of Any Multi-Drug Resistant Organisms: None Reported Past Surgical History: Hernia Repair, Tubal Ligation, Uterine Ablation Additional Past Surgical History / Comment(s): umbilical hernia repair, skin cancer removal Past Anesthesia/Blood Transfusion Reactions: Motion Sickness Additional Past Anesthesia/Blood Transfusion Reaction / Comment(s): Clausterphobia. Smoking Status: Current some day smoker - Past Family History Father Family Medical History: No Reported History Additional Family Medical History / Comment(s): Father is healthy Mother Family Medical History: Neurologic Disorder Additional Family Medical History / Comment(s): from multiple sclerosis Medications and Allergies Home Medications Medication Instructions Recorded Confirmed Type ALPRAZolam [Xanax] 1 mg PO Q8HR PRN 01/28/21 08/09/21 History Apixaban [Eliquis] 5 mg PO BID 08/09/21 08/09/21 History Allergies Allergy/AdvReac Type Severity Reaction Status Date / Time ketorolac [From Toradol] AdvReac Nausea & Verified 08/09/21 07:35 Vomiting Physical Exam Vitals: Vital Signs Temp Pulse Resp BP Pulse Ox 08/09/21 08:06 98 18 08/09/21 07:39 98.4 F 99 18 151/99 98 08/09/21 03:30 98 20 136/95 96 08/09/21 03:00 101 H 17 141/95 93 L 08/09/21 02:30 103 H 14 119/87 94 L 08/09/21 02:00 109 H 16 118/84 94 L 08/09/21 01:30 108 H 16 129/86 95 08/09/21 01:00 112 H 16 116/85 97 08/09/21 00:48 111 H 24 116/85 95 08/09/21 00:30 103 H 16 119/85 97 08/09/21 00:02 112 H 24 119/85 97 08/09/21 00:00 118 H 14 117/77 99 08/08/21 23:30 123 H 29 H 108/77 96 08/08/21 23:00 118 H 15 08/08/21 22:59 23 08/08/21 22:50 96.9 F L 117 H 14 108/77 97 Intake and Output 08/08/21 08/09/21 08/09/21 22:59 06:59 14:59 Other: Weight 49.895 kg 49.895 kg Results CBC & Chem 7: 08/08/21 23:12 08/09/21 04:28 Labs: Abnormal Lab Results - Last 24 Hours (Table) 08/08/21 08/08/21 08/08/21 Range/Units 23:12 23:12 23:12 RBC 3.70 L (3.80-5.40) m/uL MCV 122.7 H D (80.0-100.0) fL MCH 39.3 H (25.0-35.0) pg Neutrophils # 8.6 H (1.3-7.7) k/uL Macrocytosis Marked A D-Dimer 2.52 H (<0.60) mg/L FEU Sodium (137-145) mmol/L Carbon Dioxide 6 L* (22-30) mmol/L Glucose 47 L* (74-99) mg/dL POC Glucose (mg/dL) (75-99) mg/dL Plasma Lactic Acid Anil (0.7-2.0) mmol/L Calcium 7.4 L (8.4-10.2) mg/dL AST 321 H (14-36) U/L ALT 71 H (4-34) U/L Amylase 123 H (30-110) U/L Lipase 2390 H (23-300) U/L 08/09/21 08/09/21 08/09/21 Range/Units 01:04 01:31 04:11 RBC (3.80-5.40) m/uL MCV (80.0-100.0) fL MCH (25.0-35.0) pg Neutrophils # (1.3-7.7) k/uL Macrocytosis D-Dimer (<0.60) mg/L FEU Sodium (137-145) mmol/L Carbon Dioxide (22-30) mmol/L Glucose (74-99) mg/dL POC Glucose (mg/dL) 52 L 240 H 169 H (75-99) mg/dL Plasma Lactic Acid Anil (0.7-2.0) mmol/L Calcium (8.4-10.2) mg/dL AST (14-36) U/L ALT (4-34) U/L Amylase (30-110) U/L Lipase (23-300) U/L 08/09/21 08/09/21 08/09/21 Range/Units 04:28 04:28 07:49 RBC (3.80-5.40) m/uL MCV (80.0-100.0) fL MCH (25.0-35.0) pg Neutrophils # (1.3-7.7) k/uL Macrocytosis D-Dimer (<0.60) mg/L FEU Sodium 136 L (137-145) mmol/L Carbon Dioxide 11 L (22-30) mmol/L Glucose 164 H (74-99) mg/dL POC Glucose (mg/dL) 144 H (75-99) mg/dL Plasma Lactic Acid Anil 2.6 H* (0.7-2.0) mmol/L Calcium 7.6 L (8.4-10.2) mg/dL AST 373 H (14-36) U/L ALT 82 H (4-34) U/L Amylase (30-110) U/L Lipase (23-300) U/L Thrombosis Risk Factor Assmnt - Choose All That Apply Any of the Below Risk Factors Present?: Yes Each Factor Represents 1 point: Abnormal pulmonary function (COPD), Age 41-60 years Other Risk Factors: Yes Each Risk Factor Represents 2 Points: Malignancy Each Risk Factor Represents 3 Points: History of DVT/PE Other congenital or acquired thrombophilia - If yes, enter type in comment: No Thrombosis Risk Factor Assessment Total Risk Factor Score: 7 Thrombosis Risk Factor Assessment Level: High Risk
[2021-08-09] MEDS: PANTOPRAZOLE 40 MG/10 ML VIAL IVP SCH ×2 (12:28→20:47)
[2021-08-09] MEDS: LORazepam 2 MG/ML INJ IV PRN ×2 (12:40→21:31)
[2021-08-09 14:54] LABS: VBG PH 7.32 (7.31-7.41)
[2021-08-09] MEDS: SODIUM CHLORIDE 0.9% 1,000 ML IV SCH ×2 (16:49→23:54)
[2021-08-09] MEDS: THIAMINE 100 MG TAB PO SCH (18:13)
[2021-08-10] MEDS: MORPHINE SULFATE 4 MG/ML SYRINGE IV PRN ×3 (01:10→10:05)
[2021-08-10] MEDS: LORazepam 2 MG/ML INJ IV PRN ×3 (02:28→10:06)
[2021-08-10] MEDS: THIAMINE 100 MG TAB PO SCH ×2 (10:09→17:25)
[2021-08-10] MEDS: APIXABAN 5 MG TAB PO SCH ×2 (10:21→19:30)
[2021-08-10] MEDS: PANTOPRAZOLE 40 MG/10 ML VIAL IVP SCH ×2 (10:23→19:30)
[2021-08-10 10:52] LABS: Basophils % (A) 1 %; Eosinophils # (A) 0.1 k/uL (0-0.7); Eosinophils % (A) 2 %; HCT 40.8 % (34.0-46.0); HGB 13.5 gm/dL (11.4-16.0); Lymphocytes # (A) 1.2 k/uL (1.0-4.8); Lymphocytes % (A) 21 %; MCHC 33.1 g/dL (31.0-37.0); MCV 120.8 fL (80.0-100.0); Macrocytosis Marked; Mean Platelet Volume 8.5; Monocytes # (A) 0.4 k/uL (0-1.0); Monocytes % (A) 6 %; Neutrophils # (A) 4.2 k/uL (1.3-7.7); Neutrophils % (A) 70 %; RBC 3.38 m/uL (3.80-5.40); RDW 13.6 % (11.5-15.5)
[2021-08-10 10:53] LABS: Platelet Count 149 k/uL (150-450)
[2021-08-10 11:08] LABS: ALT 49 U/L (4-34); AST 121 U/L (14-36); African American GFR (CKD) >90 (>60 ml/min/1.73 sqM); Albumin 3.2 g/dL (3.5-5.0); Albumin/Globulin Ratio 1.1; Alkaline Phosphatase 107 U/L (38-126); Amylase 121 U/L (30-110); Anion Gap 9 mmol/L; Blood Urea Nitrogen 3 mg/dL (7-17); Calcium 8.5 mg/dL (8.4-10.2); Carbon Dioxide 23 mmol/L (22-30); Chloride 103 mmol/L (98-107); Globulin 2.8 g/dL; Glucose 118 mg/dL (74-99); Non-African American GFR(CKD) >90 (>60 ml/min/1.73 sqM); Potassium 4.1 mmol/L (3.5-5.1); Sodium 135 mmol/L (137-145); Total Bilirubin 1.3 mg/dL (0.2-1.3)
[2021-08-10 11:35] LABS: Lipase 3835 U/L (23-300)
[2021-08-10 12:16] VITALS: BMI 20.1
[2021-08-10] MEDS ORDERED: LORazepam 1 MG TAB PO PRN (12:38)
[2021-08-10] MEDS: SODIUM CHLORIDE 0.9% 1,000 ML IV SCH ×2 (13:30→19:30)
[2021-08-10] MEDS: LORazepam 1 MG TAB PO PRN ×2 (13:30→20:24)
--- NOTE | 2021-08-10 13:39 | P.PN ---
Subjective Progress Note Date: 08/10/21 Patient is a pleasant 51-year-old male came in with compensative severe epigastric pain radiating to the back along with the nausea. Patient denies drinking alcohol but upon further questioning she admits to drinking alcohol at the bases. Patient appears to have a colic hepatitis patient has recent DVT on Eliquis doesn't know the etiology of DVT was noted known. Patient's father is at bedside she did tell me that patient has been declining for some time and was having epigastric abdominal pain for about 3 months. Patient epigastric abdominal pain is burning as a sharp in nature. Patient is found to have pancreatitis. Patient is presently on clear liquid diet tolerating it okay. Patient does have metabolic acidosis secondary to lactic acidosis which is improving. 08/10/2021 Patient evaluated today during PT/OT eval. Continues to complain of 8/10 mid back pain as well as mild epigastric pain, both areas are tender to palpation. She is receiving norco for pain management, morphine has been discontinued. Patient has received 2 mg of ativan today, no signs of acute withdrawal during examination. She is alert, no hallucinations noted auditory or visual. No tremors noted, no headache. Does report some mild nausea, states she has not been eating well. Loose stool yesterday. No vomiting. Abdominal ultrasound showed nonspecific pattern of liver With hepatic steatosis or hepatocellular disease including hepatitis. Lipase stable today, amylase is increased from yesterday, 3835 today. Liver enzymes are improving. Review of Systems Constitutional: Denied any fatigue denied any fever. Cardio vascular: denied any chest pain, palpitations Gastrointestinal: Denies vomiting reports nausea, abdominal pain Pulmonary: Denied any shortness of breath cough Neurologic denied any new focal deficits All inpatient medications were reviewed and appropriate changes in these medications as dictated in the interval history and assessment and plan. PHYSICAL EXAMINATION: GENERAL: The patient is alert and oriented x3, not in any acute distress. Thin built cachectic female HEENT: Pupils are round and equally reacting to light. EOMI. No scleral icterus. No conjunctival pallor. Normocephalic, atraumatic. No pharyngeal erythema. No thyromegaly. CARDIOVASCULAR: S1 and S2 present. No murmurs, rubs, or gallops. PULMONARY: Chest is clear to auscultation, no wheezing or crackles. ABDOMEN: Soft, mild epigastric tenderness, nondistended, normoactive bowel sounds. No palpable organomegaly. MUSCULOSKELETAL: No joint swelling or deformity. EXTREMITIES: No cyanosis, clubbing, or pedal edema. NEUROLOGICAL: Gross neurological examination did not reveal any focal deficits. SKIN: No rashes. Assessment and plan -Acute pancreatitis and alcoholic hepatitis no evidence of gallstones on the ultrasound, continue on clear liquid diet and IV fluids. Repeat lipase and CMP in the morning. -Alcohol abuse and acute alcohol withdrawal, requiring less ativan which we will monitor patient off ativan for now and continue with xanax as needed. -Recent popliteal DVT which is unprovoked DVT for which patient will need to be on lifelong anticoagulation, continues on eliquis. -COPD without any acute exacerbation -Ongoing daily nicotine use: Counseling was provided and patient is willing to quit smoking, does not want a nicotine patch at this time. -Metabolic acidosis anion gap at work acidosis secondary to lactic acidosis and non-anion gap metabolic acidosis secondary to hyperchloremia from IV fluids which has resolved at this time -Alcoholic gastritis, continue on protonix -History chronic migraines -History of anxiety GI prophylaxis: on Protonix DVT prophylaxis: On Eliquis Full Code The impression and plan of care has been dictated by Liliya Porras Nurse Practitioner as directed. Dr. Maria De Jesus MD I have performed a history and physical examination and medical decision making of this patient, discussed the same with the dictator, and agree with the dictators assessment and plan as written, documented as a scribe. Based on total visit time, I have performed more than 50% of this visit. Objective - Vital Signs Vital signs: Vital Signs Temp 98.4 F 08/10/21 08:38 Pulse 121 H 08/10/21 08:38 Resp 22 08/10/21 08:38 BP 122/86 08/10/21 08:38 Pulse Ox 95 08/10/21 04:43 Intake & Output 08/09/21 08/10/21 08/10/21 18:59 06:59 18:59 Intake Total 1200 Balance 1200 Weight 49.895 kg Intake: Intake, IV Titration 1200 Amount Sodium Chloride 0.9% 1, 1200 000 ml @ 100 mls/hr IV . Q10H ASUNCION Rx#:[id number] Other: Voiding Method Toilet Toilet # Voids 2 3 - Labs CBC & Chem 7: 08/10/21 10:19 08/10/21 10:19 Labs: Abnormal Lab Results - Last 24 Hours (Table) 08/09/21 08/09/21 Range/Units 04:28 14:34 VBG HCO3 19 L (24-28) mmol/L Vitamin B12 1034.0 H (200.0-944.0) pg/mL Assessment and Plan Time with Patient: Less than 30
[2021-08-10] MEDS: HYDROcodone/APAP 7.5-325MG 1 EACH TAB PO PRN ×2 (14:48→22:37)
[2021-08-11] MEDS: SODIUM CHLORIDE 0.9% 1,000 ML IV SCH (02:15)
[2021-08-11] MEDS: LORazepam 1 MG TAB PO PRN ×2 (02:22→08:47)
[2021-08-11] MEDS: HYDROcodone/APAP 7.5-325MG 1 EACH TAB PO PRN (05:52)
[2021-08-11 08:36] VITALS: BP 143/91; PULSE 105; RESP 20; TEMP 98.1
[2021-08-11] MEDS: THIAMINE 100 MG TAB PO SCH (08:47)
[2021-08-11 09:15] LABS: Basophils # (A) 0.01 X 10*3/uL (0.00-0.10); Basophils % (A) 0.2 %; Eosinophils # (A) 0.11 X 10*3/uL (0.04-0.35); Eosinophils % (A) 2.2 %; HCT 30.4 % (37.2-46.3); Immature Grans, Automated 0.6 %; Lymphocytes # (A) 1.22 X 10*3/uL (0.90-5.00); Lymphocytes % (A) 23.9 %; MCH 37.9 pg (27.0-32.0); MCHC 32.9 g/dL (32.0-37.0); MCV 115.2 fL (80.0-97.0); Mean Platelet Volume 10.4 fL (9.5-12.2); Monocytes # (A) 0.31 X 10*3/uL (0.20-1.00); Monocytes % (A) 6.1 %; NRBC Per 100 WBC 0 /100 WBCS (0.0-0.0); Neutrophils # (A) 3.43 X 10*3/uL (1.80-7.70); Platelet Count 144 X 10*3/uL (140-440); RBC 2.64 X 10*6/uL (4.10-5.20); RDW 14.2 % (11.5-14.5); WBC 5.11 X 10*3/uL (4.50-10.00)
[2021-08-11] MEDS: APIXABAN 5 MG TAB PO SCH (09:37)
[2021-08-11 09:45] LABS: African American GFR (CKD) 148.5 (60.0-200.0); Albumin/Globulin Ratio 1.64 (1.60-3.17); Anion Gap 9.7 mmol/L (10.00-18.00); BUN/Creat Ratio 6.29 Ratio (12.00-20.00); Blood Urea Nitrogen 2.1 mg/dL (9.0-27.0); Calcium 8.1 mg/dL (8.7-10.3); Carbon Dioxide 24.3 mmol/L (20.0-27.5); Globulin 1.8 g/dL (1.6-3.3); Non-African American GFR(CKD) 128.1 (60.0-200.0); Potassium 3.3 mmol/L (3.5-5.5); Total Bilirubin 0.8 mg/dL (0.30-1.20); Total Protein 4.8 g/dL (6.2-8.2)
[2021-08-11] MEDS: PANTOPRAZOLE 40 MG/10 ML VIAL IVP SCH (09:45)
--- NOTE | 2021-08-12 22:45 | P.DS ---
Providers Date of admission: 08/09/21 06:47 Attending physician: Lillian Yan MD Primary care physician: Karen Donovan [facility] Course: Final Diagnosis -Acute pancreatitis and alcoholic hepatitis no evidence of gallstones on the ultrasound, continue on clear liquid diet and IV fluids. Repeat lipase and CMP in the morning. -Alcohol abuse and acute alcohol withdrawal, requiring less ativan which we will monitor patient off ativan for now and continue with xanax as needed. -Recent popliteal DVT which is unprovoked DVT for which patient will need to be on lifelong anticoagulation, continues on eliquis. -COPD without any acute exacerbation -Ongoing daily nicotine use: Counseling was provided and patient is willing to quit smoking, does not want a nicotine patch at this time. -Metabolic acidosis anion gap at work acidosis secondary to lactic acidosis and non-anion gap metabolic acidosis secondary to hyperchloremia from IV fluids which has resolved at this time -Alcoholic gastritis, continue on protonix -History chronic migraines -History of anxiety Discharge Disposition Patient is stable for discharge home. Will follow up with primary care and GI. Hospital Course Patient is a pleasant 51-year-old male came in with compensative severe epigastric pain radiating to the back along with the nausea. This pain has been ongoing and getting worse over the last 3 months. Patient denies drinking alcohol but upon further questioning she admits to drinking alcohol at the bases. Patient appears to have alcolic hepatitis with AST/ALT elevated on admission. Patient has recent DVT on Eliquis doesn't know the etiology of DVT. Also with history of COPD, daily smoker, migraines, skin cancer with removal, anxiety, marijuana use. On admission CO2 6, glucose 47, troponin negative, amylase 123 lipase 2390. Abdomen ultrasound showing nonspecific liver pattern with hepatic steatosis or hepatocellular disease including hepatitis. Chest CTA showing clearing of right middle lobe emboli from prior exam with no evidence of PE, fatty infiltration of liver. Patient was admitted and monitored for acute pancreatitis and alcohol withdrawal. Started on CIWA protocol and also pain management. Patient takes omeprazole daily was recommended to take twice a day on discharge. Patient did well on NPO diet and was advanced to clear liquid tolerated well and epigastric/lower back pain improved to 2/10. Lipase has improved to 690. 08/11/2021 Patient is anxious for discharge. She was monitored overnight off of ativan and doing well showing no signs of acute withdrawal. Labs and vitals are stable. She is denying chest pain, cough, shortness of breath, pain continues to improve and she is tolerating advanced diet. Lungs are clear, s1 s2 auscultated, normoactive bowel sounds. Mild epigastric tenderness. Focal neurological exam is negative. Patient understanding of risk for continuing to drink alcohol she plains to stop. Also, will follow up with GI on discharged. She was given a couple days of norco for pain management. Also endorses a desire for tobacco cessation as well. Patient will be discharged today. Please see medication reconciliation for a list of current medication. Thank you for allowing us to participate in the care of this patient. The impression and plan of care has been dictated by Liliya Porras Nurse Practitioner as directed. Dr. Maria De Jesus MD I have performed a history and physical examination and medical decision making of this patient, discussed the same with the dictator, and agree with the dictators assessment and plan as written, documented as a scribe. Based on total visit time, I have performed more than 50% of this visit. Patient Condition at Discharge: Stable Plan - Discharge Summary Discharge Rx Participant: No New Discharge Prescriptions: New HYDROcodone/APAP 7.5-325MG [[place] 7.5-325] 1 each PO Q6HR PRN #8 tab PRN Reason: Moderate Pain Omeprazole [PriLOSEC] 20 mg PO AC-BID #20 cap Thiamine [Vitamin B-1] 100 mg PO BID-W/MEALS #30 tab Continue ALPRAZolam [Xanax] 1 mg PO Q8HR PRN PRN Reason: Anxiety Apixaban [Eliquis] 5 mg PO BID Discharge Medication List ALPRAZolam [Xanax] 1 mg PO Q8HR PRN 01/28/21 [History] Apixaban [Eliquis] 5 mg PO BID 08/09/21 [History] HYDROcodone/APAP 7.5-325MG [[place] 7.5-325] 1 each PO Q6HR PRN #8 tab 08/11/21 [Rx] Omeprazole [PriLOSEC] 20 mg PO AC-BID #20 cap 08/11/21 [Rx] Thiamine [Vitamin B-1] 100 mg PO BID-W/MEALS #30 tab 08/11/21 [Rx] Follow up Appointment(s)/Referral(s): Venus Jones MD [Primary Care Provider] - 08/19/21 11:00 am Jennifer Renee MD [STAFF PHYSICIAN] - 08/31/21 2:00 pm Patient Instructions/Handouts: Pancreatitis (DC) Activity/Diet/Wound Care/Special Instructions: Advance diet as tolerated Discharge Disposition: HOME SELF-CARE
== END 2021-08-11 11:39 | disposition home or self-care (01) | DRG 439 ==
LOC: EC 22:32 → 4SSUR 08-09 06:47 → 5NMEDONC 08-09 07:12
PROVIDERS: ADMIT Internal Medicine; ATTEND Internal Medicine
PROC: HZ2ZZZZ Detoxification Services for Substance Abuse Treatment (ICD-10-PCS; principal; 2021-08-09)
DX: K85.90 Acute pancreatitis without necrosis or infection, unspecified (principal); E87.2 Acidosis; F10.239 Alcohol dependence with withdrawal, unspecified; K70.10 Alcoholic hepatitis without ascites; K52.9 Noninfective gastroenteritis and colitis, unspecified; J44.9 Chronic obstructive pulmonary disease, unspecified; E87.8 Other disorders of electrolyte and fluid balance, not elsewhere classified; K29.20 Alcoholic gastritis without bleeding; K76.0 Fatty (change of) liver, not elsewhere classified; F17.210 Nicotine dependence, cigarettes, uncomplicated; Z86.718 Personal history of other venous thrombosis and embolism; Z88.8 Allergy status to other drugs, medicaments and biological substances; G43.909 Migraine, unspecified, not intractable, without status migrainosus; Z79.01 Long term (current) use of anticoagulants; Z82.0 Family history of epilepsy and other diseases of the nervous system; Z85.828 Personal history of other malignant neoplasm of skin; Z86.711 Personal history of pulmonary embolism; Z71.6 Tobacco abuse counseling; Z87.19 Personal history of other diseases of the digestive system; Z98.51 Tubal ligation status; Z86.19 Personal history of other infectious and parasitic diseases
CPT/HCPCS: 36415; 71046; 71275; 76705; 80053; 80179; 80320; 82150; 82607; 82803; 83605; 83690; 83735; 83880; 84484; 85025; 85379; 85610; 85730; 93005; 96361; 96374; 96375; 99285

== ENCOUNTER → 2021-10-01 | Outpatient (CLI) | payer MEDICARE ==
[2021-10-01 22:33] LABS: Basophils # (A) 0.02 X 10*3/uL (0.00-0.10); Basophils % (A) 0.3 %; Eosinophils # (A) 0.03 X 10*3/uL (0.04-0.35); Eosinophils % (A) 0.5 %; HCT 25.6 % (37.2-46.3); HGB 8.1 g/dL (12.0-15.0); Immature Grans, Automated 1.3 %; Lymphocytes # (A) 2.57 X 10*3/uL (0.90-5.00); Lymphocytes % (A) 41.4 %; MCH 39.9 pg (27.0-32.0); MCHC 31.6 g/dL (32.0-37.0); MCV 126.1 fL (80.0-97.0); Mean Platelet Volume 11.3 fL (9.5-12.2); Monocytes # (A) 0.26 X 10*3/uL (0.20-1.00); Monocytes % (A) 4.2 %; NRBC Per 100 WBC 0.6 /100 WBCS (0.0-0.0); Neutrophils # (A) 3.25 X 10*3/uL (1.80-7.70); Neutrophils % (A) 52.3 %; Platelet Count 185 X 10*3/uL (140-440); RBC 2.03 X 10*6/uL (4.10-5.20); RDW 17.7 % (11.5-14.5); WBC 6.21 X 10*3/uL (4.50-10.00)
[2021-10-01 22:55] LABS: Lipase 52 U/L (14-63); Vitamin B12 >2000.0 pg/mL (200.0-944.0)
[2021-10-01 23:57] LABS: ALT 69 U/L (8-44); AST 150 U/L (13-35); African American GFR (CKD) 137.8 (60.0-200.0); Albumin 2.8 g/dL (3.8-4.9); Albumin/Globulin Ratio 1.13 (1.60-3.17); Alkaline Phosphatase 338 U/L (41-126); BUN/Creat Ratio 9.37 Ratio (12.00-20.00); Calcium 8.1 mg/dL (8.7-10.3); Carbon Dioxide 25.9 mmol/L (20.0-27.5); Chloride 101 mmol/L (96-109); Globulin 2.4 g/dL (1.6-3.3); Glucose 97 mg/dL (70-110); Non-African American GFR(CKD) 118.9 (60.0-200.0); Potassium 3.3 mmol/L (3.5-5.5); Sodium 139 mmol/L (135-145); Total Protein 5.2 g/dL (6.2-8.2)
== END | disposition home or self-care (01) ==
LOC: LABWHC1 15:58
PROVIDERS: ATTEND Internal Medicine Gastroenterology
DX: K85.90 Acute pancreatitis without necrosis or infection, unspecified (principal); R53.83 Other fatigue
CPT/HCPCS: 36415; 80053; 82607; 83540; 83550; 83690; 84439; 84443; 85025

== ENCOUNTER 2021-12-07 06:36 | Day surgery (SDC) | payer MEDICARE ==
[2021-12-03 14:06] VITALS: BMI 18.3
[~2021-12-07 06:36] MED LIST: LACTATED RINGERS 1,000 ML IV SCH; LIDOCAINE 1% (10MG/ML) FOR IV START INTRADERMA PRN
[2021-12-07 07:00] VITALS: RESP 16; TEMP 97.2
[2021-12-07] MEDS ORDERED: LIDOCAINE 2% INJ 20 MG/ML (2 ML VIAL) ONE (07:46)
[2021-12-07] MEDS ORDERED: MIDAZOLAM 2 MG/2 ML VIAL ONE (07:46)
[2021-12-07] MEDS ORDERED: PROPOFOL 10 MG/ML 20 ML VIAL IV ONE (07:46)
--- NOTE | 2021-12-07 08:06 | P.PCN ---
Date of Procedure: 12/07/21 Procedure(s) Performed: Brief history: Patient is a pleasant 51-year-old white female scheduled for an elective upper endoscopy as well as colonoscopy as a part of evaluation of GERD and chronic diarrhea of several months duration. Procedure performed: Esophagogastroduodenoscopy with biopsy Colonoscopy with random biopsy Preoperative diagnosis: GERD Chronic diarrhea Anesthesia: [facility] Procedure: After informed consent was obtained from the patient was brought into the endoscopy unit and IV sedation was administered by anesthesia under continuous monitoring. Initially upper endoscopy was done. The Olympus GF 160 video endoscope was inserted inserted into the mouth and esophagus intubated without any difficulty and was gradually advanced into the stomach and duodenum and carefully examined. The bulb and second part of the duodenum appeared normal. Biopsies were done from the duodenum to rule out celiac disease. The scope was then withdrawn into the stomach adequately insufflated with air and upon careful examination the antrum had mild gastritis and biopsies were done from this area. The body, cardia and fundus appeared normal. The scope was then withdrawn into the esophagus. The GE junction was located at 40 cm to the incisors. It appeared regular with no erythema erosions or ulcerations. There were whitish plaques noted in the mid and distal esophagus and multiple biopsies were done from this area to rule out infectious esophagitis/Brissa esophagitis. Patient tolerated the procedure well. At this time the patient continued to remain sedation. Initial digital rectal examination was normal. Olympus CF 160 video colonoscope was then inserted into the rectum and gradually advanced to the cecum without any difficulty. Careful examination was performed as the scope was gradually being withdrawn. The prep was excellent. The cecum, ascending colon, transverse colon, descending colon, sigmoid colon and rectum appeared normal. Random biopsies were done from ascending and descending colon to rule out microscopic/collagenous colitis. Retroflexion was performed in the rectum and no lesions were noted. Patient tolerated the procedure well. Impression: 1. Upper endoscopy revealed mild antral gastritis and multiple whitish plaques in the proximal and midesophagus status post biopsies to rule out infectious esophagitis 2. Colonoscopy was within normal limits with colitis or colorectal neoplasia Recommendations: Findings of this examination were discussed with the patient as well as her family. She was advised to follow with the biopsy results. Recommend repeat screening colonoscopy in 10 years.
[2021-12-07] MEDS ORDERED: IV FLUID CONTINUATION 450 ML IV ONE (08:09)
[2021-12-07] MEDS ORDERED: LACTATED RINGERS 1,000 ML IV ONE (08:09)
[2021-12-07 08:28] VITALS: BP 126/85; PULSE 67
== END 2021-12-07 08:47 | disposition home or self-care (01) ==
LOC: ORWHC2ENDO 06:36
PROVIDERS: ATTEND Internal Medicine Gastroenterology
DX: K52.9 Noninfective gastroenteritis and colitis, unspecified (principal); K29.50 Unspecified chronic gastritis without bleeding; K20.0 Eosinophilic esophagitis; Z79.01 Long term (current) use of anticoagulants; Z79.899 Other long term (current) drug therapy; Z88.6 Allergy status to analgesic agent; Z91.011 Allergy to milk products; F41.9 Anxiety disorder, unspecified; Z98.51 Tubal ligation status; Z98.890 Other specified postprocedural states; Z86.718 Personal history of other venous thrombosis and embolism
CPT/HCPCS: 81025; 88305; 45380; 43239; J2250; J2704; J2001

== ENCOUNTER → 2021-12-14 | Outpatient (CLI) | payer MEDICARE ==
[2021-12-14 23:20] LABS: Basophils # (A) 0.05 X 10*3/uL (0.00-0.10); Basophils % (A) 0.8 %; Eosinophils # (A) 0.03 X 10*3/uL (0.04-0.35); Eosinophils % (A) 0.5 %; HCT 32.8 % (37.2-46.3); HGB 10.4 g/dL (12.0-15.0); Immature Grans, Automated 0.2 %; Lymphocytes # (A) 2.71 X 10*3/uL (0.90-5.00); Lymphocytes % (A) 43.5 %; MCH 37.3 pg (27.0-32.0); MCHC 31.7 g/dL (32.0-37.0); MCV 117.6 fL (80.0-97.0); Mean Platelet Volume 11.5 fL (9.5-12.2); Monocytes # (A) 0.38 X 10*3/uL (0.20-1.00); Monocytes % (A) 6.1 %; NRBC Per 100 WBC 0 /100 WBCS (0.0-0.0); Neutrophils # (A) 3.05 X 10*3/uL (1.80-7.70); Neutrophils % (A) 48.9 %; Platelet Count 182 X 10*3/uL (140-440); RBC 2.79 X 10*6/uL (4.10-5.20); RDW 17.5 % (11.5-14.5); WBC 6.23 X 10*3/uL (4.50-10.00)
[2021-12-14 23:43] LABS: African American GFR (CKD) 128.3 (60.0-200.0); Albumin/Globulin Ratio 1.31 (1.60-3.17); Anion Gap 10.3 mmol/L (10.00-18.00); BUN/Creat Ratio 13.68 Ratio (12.00-20.00); Blood Urea Nitrogen 7.3 mg/dL (9.0-27.0); Calcium 8.4 mg/dL (8.7-10.3); Carbon Dioxide 25.7 mmol/L (20.0-27.5); Globulin 2.3 g/dL (1.6-3.3); Non-African American GFR(CKD) 110.7 (60.0-200.0); Potassium 4.1 mmol/L (3.5-5.5); T4, Free (Free Thyroxine) 0.93 ng/dL (0.800-1.800); Total Bilirubin 0.7 mg/dL (0.30-1.20); Total Protein 5.3 g/dL (6.2-8.2)
== END | disposition home or self-care (01) ==
LOC: LABWHC1 16:07
PROVIDERS: ATTEND Internal Medicine Gastroenterology
DX: K85.90 Acute pancreatitis without necrosis or infection, unspecified (principal); R63.4 Abnormal weight loss
CPT/HCPCS: 36415; 80053; 84439; 84443; 84481; 85025

== ENCOUNTER 2022-01-27 21:00 | Emergency (ER) | payer MEDICARE ==
[2022-01-27 21:22] VITALS: TEMP 98.2
[2022-01-27] MEDS ORDERED: hydrOXYzine HCL 25 MG TAB PO STA (21:42)
[2022-01-27] MEDS ORDERED: METOCLOPRAMIDE 10 MG TAB PO STA (21:50)
[2022-01-27] MEDS ORDERED: DEXAMETHASONE SOD PHOSPHATE 10 MG/ML 1 ML VIAL IM STA (21:50)
--- NOTE | 2022-01-27 21:54 | ED ---
General Adult HPI <Malcom Mancini Candie - Last Filed: 01/28/22 06:56> - General Source: patient, EMS Mode of arrival: EMS <Mayra Deras - Last Filed: 01/28/22 16:24> - General Chief complaint: Psychiatric Symptoms Stated complaint: Mental Health, ETOH Time Seen by Provider: 01/27/22 21:23 - History of Present Illness Initial comments: Patient is a 51-year-old female presenting with chief complaint of headache and anxiety. Patient has chronic migraines, states that this most recent migraine has been going on for the last 6 days, feels identical to her regular migraines. Patient has not taken any analgesia at home, states that she was previously prescribed Dilaudid and states her doctor is no longer prescribing this. Patient states that earlier today she was making suicidal statements due to the degree of her pain. Patient's daughter called 911 because of the statements, patient denies any current suicidal ideation. Denies homicidal ideation. Patient does admit to drinking 3 shots of alcohol today to try to decrease her pain level. She denies any chest pain, shortness of breath, fever, chills, abdominal pain, vision or hearing changes, neck pain or stiffness, numbness, tingling, dizziness, weakness. (Mayra Deras) - Related Data Home Medications Medication Instructions Recorded Confirmed ALPRAZolam [Xanax] 1 mg PO Q8HR PRN 01/28/21 12/07/21 Apixaban [Eliquis] 5 mg PO BID 08/09/21 12/07/21 Cholecalciferol [Vitamin D3 (25 50 mcg PO DAILY 12/03/21 12/07/21 Mcg = 1000 Iu)] Ferrous Sulfate [Feosol] 325 mg PO DAILY 12/03/21 12/03/21 Furosemide [Lasix] 20 mg PO DAILY 12/03/21 12/07/21 Ondansetron [Zofran] 4 mg PO Q12HR PRN 12/03/21 12/07/21 Potassium Chloride [K-Tab ER] 10 meq PO DAILY 12/03/21 12/07/21 Previous Rx's Medication Instructions Recorded Omeprazole [PriLOSEC] 20 mg PO AC-BID #20 cap 08/11/21 Allergies Allergy/AdvReac Type Severity Reaction Status Date / Time ketorolac [From Toradol] AdvReac Nausea & Verified 12/07/21 06:47 Vomiting lactose AdvReac Nausea & Verified 12/07/21 06:47 Vomiting & Diarrhea nicotine [From Habitrol] AdvReac Nausea & Verified 12/07/21 06:47 Vomiting Review of Systems ROS Other: All systems not noted in ROS Statement are negative. <Malcom Mancini - Last Filed: 01/28/22 06:56> ROS Other: All systems not noted in ROS Statement are negative. <Mayra Deras - Last Filed: 01/28/22 16:24> ROS Statement: Those systems with pertinent positive or pertinent negative responses have been documented in the HPI. Past Medical History Past Medical History: Cancer, Deep Vein Thrombosis (DVT), GERD/Reflux, Pulmonary Embolus (PE) Additional Past Medical History / Comment(s): migraine headaches,, SKIN CANCER, DEC 2020-COLLAPSED 01/29/21-DEVELOPED BLOOD CLOTS IN JUN 2021-DVT AND PE,HX P ANCREATITIS, N/V-ABD. PAIN, CANNOT KEEP FOOD DOWN History of Any Multi-Drug Resistant Organisms: None Reported Past Surgical History: Hernia Repair, Tubal Ligation, Uterine Ablation Additional Past Surgical History / Comment(s): umbilical hernia repair, tubal ligation, EGD, Past Anesthesia/Blood Transfusion Reactions: No Reported Reaction Additional Past Anesthesia/Blood Transfusion Reaction / Comment(s): CLAUSTROPHOBIA. PT WAS OUT OF TWILIGHT BY THE TIME PROCEDURE WAS DONE AND WAS VERY TRAUMATIZED BY EXPERIENCE Past Psychological History: Anxiety Smoking Status: Former smoker - Past Family History Father Family Medical History: No Reported History Mother Family Medical History: Neurologic Disorder Additional Family Medical History / Comment(s): from multiple sclerosis <Mayra Deras - Last Filed: 01/28/22 16:24> General Exam Limitations: no limitations General appearance: alert, anxious Head exam: Present: atraumatic, normocephalic, normal inspection Eye exam: Present: normal appearance, EOMI. Absent: scleral icterus, periorbital swelling Neck exam: Present: normal inspection, full ROM Extremities exam: Present: normal inspection, full ROM Neurological exam: Present: alert, oriented X3, CN II-XII intact Psychiatric exam: Present: anxious. Absent: homicidal ideation, suicidal ideation Skin exam: Present: warm, dry, intact, normal color. Absent: rash <DerasMayra hernandes - Last Filed: 01/28/22 16:24> Course Vital Signs 01/27/22 01/28/22 01/28/22 21:17 04:00 05:00 Temperature 98.2 F Pulse Rate 100 104 H 104 H Respiratory 22 18 18 Rate Blood Pressure 122/95 127/78 121/70 O2 Sat by Pulse 99 98 98 Oximetry Medical Decision Making <DerasDerian hernandesfanny - Last Filed: 01/28/22 16:24> - Medical Decision Making Patient is a 51-year-old female presenting with chief complaint of anxiety and migraine. Patient states that she has had a migraine for the last 6 days, this is consistent with her classic migraine, she has not taken any supportive treatment at home, under his requesting Dilaudid for her pain. Patient states that the migraine has caused an increase in her anxiety, she made suicidal statements at home which prompted her daughter to call the police and have her brought to the hospital. On examination patient is anxious and she is requesting Dilaudid for her headache. Patient took 3 shots of alcohol prior to arrival, I explained to her that she cannot receive Dilaudid at this time due to the risk of respiratory depression. She received migraine cocktail and anxiety medication. She'll be evaluated by EPS once she is sober. Patient is signed out to attending Dr. Mancini. (Mayra Deras) - Lab Data Lab Results 01/27/22 Range/Units 23:45 Urine Opiates Screen Not Detected (NotDetected) Ur Oxycodone Screen Not Detected (NotDetected) Urine Methadone Screen Not Detected (NotDetected) Ur Propoxyphene Screen Not Detected (NotDetected) Ur Barbiturates Screen Not Detected (NotDetected) U Tricyclic Antidepress Not Detected (NotDetected) Ur Phencyclidine Scrn Not Detected (NotDetected) Ur Amphetamines Screen Not Detected (NotDetected) U Methamphetamines Scrn Not Detected (NotDetected) U Benzodiazepines Scrn Detected H (NotDetected) Urine Cocaine Screen Not Detected (NotDetected) U Marijuana (THC) Screen Detected H (NotDetected) Disposition Is patient prescribed a controlled substance at d/c from ED?: No <Malcom Mancini - Last Filed: 01/28/22 06:56> <Mayra Deras - Last Filed: 01/28/22 16:24> Clinical Impression: Acute anxiety Disposition: HOME SELF-CARE Instructions (If sedation given, give patient instructions): Altered Mental Status (ED), Anxiety (ED) Referrals: Deshaun Jeronimo DO [Primary Care Provider] - 1-2 days
[2022-01-27] MEDS ORDERED: LORazepam 1 MG TAB PO STA (22:27)
[2022-01-28 01:02] LABS: Amphetamine Screen,Urine Not Detected (NotDetected); Barbiturate Screen,Urine Not Detected (NotDetected); Benzodiazepines Screen,Urine Detected (NotDetected); Cocaine Screen,Urine Not Detected (NotDetected); Methadone Screen, Urine Not Detected (NotDetected); Opiate Screen,Urine Not Detected (NotDetected); Oxycodone Screen, Urine Not Detected (NotDetected); Phencyclidine Screen,Urine Not Detected (NotDetected); Tricyclic Antidepressant,Urine Not Detected (NotDetected); Urn Cannabinoid Scrn Detected (NotDetected)
[2022-01-28] MEDS ORDERED: HYDROcodone/APAP 5-325MG 1 EACH TAB PO STA (01:51)
[2022-01-28 04:17] VITALS: PULSE 104; RESP 18
[2022-01-28 05:34] VITALS: BP 121/70
== END 2022-01-28 07:01 | disposition home or self-care (01) ==
LOC: EC 21:00
DX: F41.9 Anxiety disorder, unspecified (principal); K21.9 Gastro-esophageal reflux disease without esophagitis; Z86.718 Personal history of other venous thrombosis and embolism; Z79.01 Long term (current) use of anticoagulants; Z86.711 Personal history of pulmonary embolism; Z88.8 Allergy status to other drugs, medicaments and biological substances; Z91.048 Other nonmedicinal substance allergy status; Z91.011 Allergy to milk products; Z79.899 Other long term (current) drug therapy; Z87.891 Personal history of nicotine dependence
CPT/HCPCS: 99285; 82075; 80306; 96372; J1100

== ENCOUNTER 2022-01-30 22:55 | Observation (INO) | payer MEDICARE ==
[2022-01-30] MEDS ORDERED: LORazepam 1 MG TAB PO STA (23:05)
[2022-01-30] MEDS ORDERED: HYDROcodone/APAP 5-325MG 1 EACH TAB PO STA (23:05)
--- NOTE | 2022-01-30 23:06 | ED ---
Psych HPI - General Stated Complaint: Mental Health Time Seen by Provider: 01/30/22 23:05 Source: RN notes reviewed, old records reviewed Mode of arrival: EMS Limitations: altered mental status (Severe anxiety) - History of Present Illness Initial Comments: 51 female to the emergency department for evaluation of severe anxiety attack feels like she can't breathe generalized body aches and pains. Recent hospital admission and evaluation for psychiatric illness and the same MD Complaint: suicidal ideation, feels depressed, altered mental status -: days(s) Associated Psychiatric Symptoms: depression, suicidal ideation, delusions Quality: constant Improves With: none Worsens With: none Context: recent alcohol abuse, recent drug abuse, significant life stressor Associated Symptoms: confusion Treatments Prior to Arrival: placed on mental health hold If Self Harm: admits thoughts of self harm - Related Data Home Medications Medication Instructions Recorded Confirmed ALPRAZolam [Xanax] 1 mg PO Q8HR PRN 01/28/21 12/07/21 Apixaban [Eliquis] 5 mg PO BID 08/09/21 12/07/21 Cholecalciferol [Vitamin D3 (25 50 mcg PO DAILY 12/03/21 12/07/21 Mcg = 1000 Iu)] Ferrous Sulfate [Feosol] 325 mg PO DAILY 12/03/21 12/03/21 Furosemide [Lasix] 20 mg PO DAILY 12/03/21 12/07/21 Ondansetron [Zofran] 4 mg PO Q12HR PRN 12/03/21 12/07/21 Potassium Chloride [K-Tab ER] 10 meq PO DAILY 12/03/21 12/07/21 Previous Rx's Medication Instructions Recorded Omeprazole [PriLOSEC] 20 mg PO AC-BID #20 cap 08/11/21 Allergies Allergy/AdvReac Type Severity Reaction Status Date / Time ketorolac [From Toradol] AdvReac Nausea & Verified 12/07/21 06:47 Vomiting lactose AdvReac Nausea & Verified 12/07/21 06:47 Vomiting & Diarrhea nicotine [From Habitrol] AdvReac Nausea & Verified 12/07/21 06:47 Vomiting Review of Systems ROS Statement: Those systems with pertinent positive or pertinent negative responses have been documented in the HPI. ROS Other: All systems not noted in ROS Statement are negative. Past Medical History Past Medical History: Cancer, Deep Vein Thrombosis (DVT), GERD/Reflux, Pulmonary Embolus (PE) Additional Past Medical History / Comment(s): migraine headaches,, SKIN CANCER, DEC 2020-COLLAPSED 01/29/21-DEVELOPED BLOOD CLOTS IN JUN 2021-DVT AND PE,HX PANCREATITIS, N/V-ABD. PAIN, CANNOT KEEP FOOD DOWN History of Any Multi-Drug Resistant Organisms: None Reported Past Surgical History: Hernia Repair, Tubal Ligation, Uterine Ablation Additional Past Surgical History / Comment(s): umbilical hernia repair, tubal ligation, EGD, Past Anesthesia/Blood Transfusion Reactions: No Reported Reaction Additional Past Anesthesia/Blood Transfusion Reaction / Comment(s): CLAUSTROPHOBIA. PT WAS OUT OF TWILIGHT BY THE TIME PROCEDURE WAS DONE AND WAS VERY TRAUMATIZED BY EXPERIENCE Past Psychological History: Anxiety Smoking Status: Former smoker - Past Family History Father Family Medical History: No Reported History Mother Family Medical History: Neurologic Disorder Additional Family Medical History / Comment(s): from multiple sclerosis General Exam General appearance: alert, in no apparent distress, anxious Head exam: Present: atraumatic, normocephalic, normal inspection Eye exam: Present: normal appearance, PERRL, EOMI. Absent: scleral icterus, conjunctival injection, periorbital swelling ENT exam: Present: normal exam, mucous membranes dry, mucous membranes moist Neck exam: Present: normal inspection. Absent: tenderness, meningismus, lymphadenopathy Respiratory exam: Present: normal lung sounds bilaterally. Absent: respiratory distress, wheezes, rales, rhonchi, stridor Cardiovascular Exam: Present: regular rate, normal rhythm, normal heart sounds. Absent: systolic murmur, diastolic murmur, rubs, gallop, clicks GI/Abdominal exam: Present: soft, normal bowel sounds. Absent: distended, tenderness, guarding, rebound, rigid Extremities exam: Present: normal inspection, full ROM, normal capillary refill. Absent: tenderness, pedal edema, joint swelling, calf tenderness Back exam: Present: normal inspection Neurological exam: Present: alert, oriented X3, CN II-XII intact Psychiatric exam: Present: normal affect, normal mood Skin exam: Present: warm, dry, intact, normal color. Absent: rash Course - Reevaluation(s) Reevaluation #1: 01/30/22 23:06 Medical record is reviewed Reevaluation #2: 01/31/22 00:00 Patient is improved here in the ER Reevaluation #3: 01/31/22 00:00 Patient informed results and questions answered Medical Decision Making - Medical Decision Making 51 female will be admitted for monitoring I replacement hydration and psychiatric evaluation Disposition Clinical Impression: Acute anxiety, Weakness, Alcohol intoxication Disposition: ADMITTED IP TO THIS HOSP Condition: Fair Is patient prescribed a controlled substance at d/c from ED?: No Referrals: Deshaun Jeronimo DO [Primary Care Provider] - 1-2 days Time of Disposition: 23:55
[2022-01-30] MEDS ORDERED: SODIUM CHLORIDE 0.9% 1,000 ML IV STA ×2 (23:25)
[2022-01-30] MEDS ORDERED: THIAMINE 100 MG/ML 2 ML VIAL IM STA (23:59)
[2022-01-30] MEDS ORDERED: NALOXONE 0.4 MG/ML 1 ML VIAL IV PRN (23:59)
[2022-01-30] MEDS ORDERED: ONDANSETRON 4 MG/2 ML VIAL IVP PRN (23:59)
[2022-01-31] MEDS: LORazepam 2 MG/ML INJ IV PRN ×3 (00:38→08:05)
[2022-01-31 00:42] LABS: Basophils # (A) 0.1 k/uL (0-0.2); Basophils % (A) 1 %; Eosinophils % (A) 1 %; HCT 46.3 % (34.0-46.0); HGB 15.2 gm/dL (11.4-16.0); Lymphocytes # (A) 3.2 k/uL (1.0-4.8); Lymphocytes % (A) 43 %; MCH 35.8 pg (25.0-35.0); MCHC 32.9 g/dL (31.0-37.0); MCV 108.9 fL (80.0-100.0); Macrocytosis Moderate; Mean Platelet Volume 7.3; Monocytes # (A) 0.3 k/uL (0-1.0); Monocytes % (A) 4 %; Neutrophils # (A) 3.7 k/uL (1.3-7.7); Neutrophils % (A) 50 %; Platelet Count 330 k/uL (150-450); RBC 4.25 m/uL (3.80-5.40); RDW 12.7 % (11.5-15.5); WBC 7.4 k/uL (3.8-10.6)
[2022-01-31 00:59] LABS: ALT 29 U/L (4-34); AST 45 U/L (14-36); African American GFR (CKD) >90 (>60 ml/min/1.73 sqM); Albumin 4.4 g/dL (3.5-5.0); Alkaline Phosphatase 123 U/L (38-126); Anion Gap 17 mmol/L; Blood Urea Nitrogen 17 mg/dL (7-17); Calcium 8.7 mg/dL (8.4-10.2); Carbon Dioxide 25 mmol/L (22-30); Chloride 101 mmol/L (98-107); Glucose 97 mg/dL (74-99); Lipase 42 U/L (23-300); Non-African American GFR(CKD) >90 (>60 ml/min/1.73 sqM); Potassium 4.3 mmol/L (3.5-5.1); Sodium 143 mmol/L (137-145); Total Bilirubin 0.8 mg/dL (0.2-1.3)
[2022-01-31 01:08] LABS: Alcohol 371 mg/dL
[2022-01-31] MEDS ORDERED: HYDROmorphone 1 MG/ML 1 ML SYRINGE IVP STA (03:17)
[2022-01-31 05:31] LABS: Basophils % (A) 1 %; Eosinophils % (A) 0 %; HCT 43.1 % (34.0-46.0); HGB 14.2 gm/dL (11.4-16.0); Hypochromasia Slight; Lymphocytes # (A) 3.2 k/uL (1.0-4.8); Lymphocytes % (A) 46 %; MCH 36.9 pg (25.0-35.0); MCHC 32.9 g/dL (31.0-37.0); Macrocytosis Marked; Mean Platelet Volume 7.9; Monocytes # (A) 0.3 k/uL (0-1.0); Monocytes % (A) 4 %; Neutrophils # (A) 3.3 k/uL (1.3-7.7); Neutrophils % (A) 48 %; Platelet Count 327 k/uL (150-450); RBC 3.85 m/uL (3.80-5.40); RDW 12.6 % (11.5-15.5); WBC 6.9 k/uL (3.8-10.6)
[2022-01-31 05:32] LABS: MCV 112.1 fL (80.0-100.0)
[2022-01-31 05:45] LABS: ALT 29 U/L (4-34); AST 45 U/L (14-36); African American GFR (CKD) >90 (>60 ml/min/1.73 sqM); Albumin 4.2 g/dL (3.5-5.0); Alkaline Phosphatase 113 U/L (38-126); Anion Gap 19 mmol/L; Blood Urea Nitrogen 16 mg/dL (7-17); Calcium 8.3 mg/dL (8.4-10.2); Carbon Dioxide 20 mmol/L (22-30); Chloride 103 mmol/L (98-107); Glucose 109 mg/dL (74-99); Magnesium 1.8 mg/dL (1.6-2.3); Non-African American GFR(CKD) >90 (>60 ml/min/1.73 sqM); Phosphorus 5.9 mg/dL (2.5-4.5); Potassium 4.2 mmol/L (3.5-5.1); Sodium 142 mmol/L (137-145); Total Bilirubin 0.8 mg/dL (0.2-1.3); Total Protein 6.7 g/dL (6.3-8.2)
[2022-01-31] MEDS: HYDROmorphone 1 MG/ML 1 ML SYRINGE IVP PRN ×4 (08:05→23:45)
[2022-01-31] MEDS: THIAMINE 100 MG TAB PO SCH (09:31)
[2022-01-31] MEDS: FOLIC ACID 1 MG TAB PO SCH (09:31)
[2022-01-31] MEDS: MULTIVITAMINS, THERA 1 EACH TAB PO SCH (09:31)
[2022-01-31] MEDS ORDERED: ALPRAZolam 1 MG TAB PO PRN (12:25)
[2022-01-31] MEDS: LORazepam 1 MG/0.5 ML VIAL IV PRN ×3 (13:00→21:59)
--- NOTE | 2022-01-31 14:30 | P.CN ---
Psychiatric Consult - . Consult date: 01/31/22 Consult:: 01/31/22 14:28 IDENTIFYING DATA: This patient is a 51-year-old, , on disability, female with a significant history of anxiety and fibromyalgia presented to the hospital on a petition and certification for mental health evaluation HISTORY OF PRESENT ILLNESS: The patient presented to the hospital on 01/30/2022, brought in some urge department by EMS for evaluation of severe anxiety attack. The patient has had recent presentations to emergency department for alcohol use and unspecified somatic symptoms. As per petition filled out by the patient's daughter, the patient has been endorsing suicidal ideation as well as presenting with some delusional thought content and response to internal stimuli. Another petition was filled out by the officer lieutenant who reported that the patient has been having a significant decline in her ability to function and was unable to attend her basic needs. Upon evaluation on the medical floor by the psychiatrist, the patient is unable to provide any clear history of events leading up to hospitalization. The patient is vehemently denying any suicidal or homicidal ideation, intention, and/or plan. She is not reporting any significant depressive symptoms however does admit that for the past year, she has been isolative to herself in her home. She is an inconsistent historian at this time. When asked about her alcohol use and his blood alcohol level of 371, The patient minimizes her use stating that she only had 4 rum beverages. There is also concern that the patient has been mixing alcohol with controlled substances such as benzodiazepines that she says that she is prescribed for anxiety. The patient appears to be fixated on pain management stating that she is on dilaudid for migraines. PAST PSYCHIATRIC HISTORY: Patient has a a history of depression and anxiety. The patient vehemently states that antidepressants have an opposite effect for her. She reports that she has tried every antidepressant in the past. Patient denies any previous psychiatric hospitalizations. She reports that she follows with [facility] [place] and sees a remote psychiatrist and remote counselor. The patient vehemently denies any prior attempts at suicide. PAST MEDICAL HISTORY: Past Medical History: Cancer, Deep Vein Thrombosis (DVT), GERD/Reflux, Pulmonary Embolus (PE) Additional Past Medical History / Comment(s): migraine headaches,, SKIN CANCER, DEC 2020-COLLAPSED 01/29/21-DEVELOPED BLOOD CLOTS IN JUN 2021-DVT AND PE,HX PANCREATITIS, N/V-ABD. PAIN, CANNOT KEEP FOOD DOWN History of Any Multi-Drug Resistant Organisms: None Reported Past Surgical History: Hernia Repair, Tubal Ligation, Uterine Ablation Additional Past Surgical History / Comment(s): umbilical hernia repair, tubal ligation, EGD, Past Anesthesia/Blood Transfusion Reactions: No Reported Reaction Additional Past Anesthesia/Blood Transfusion Reaction / Comment(s): CLAUSTROPHOBIA. PT WAS OUT OF TWILIGHT BY THE TIME PROCEDURE WAS DONE AND WAS VERY TRAUMATIZED BY EXPERIENCE Past Psychological History: Anxiety Smoking Status: Former smoker ALLERGIES: Ketorolac, lactulose, Nicotine CHEMICAL DEPENDENCY HISTORY: The patient states that she drinks "on occasion." She says that she has been on numerous states lately and that is why she has been drinking more often. There is concern that the patient has been mixing alcohol with benzodiazepines. The patient reports that she smokes 3-4 cigarettes on occasion. She also reports that she uses marijuana on occasion to address her migraines. She denies any illicit drug use. FAMILY PSYCHIATRIC/SUBSTANCE USE HISTORY: No reported family psychiatric history. SOCIAL HISTORY: Patient was born in [place], [place] and raised in [place], [place]. She is as of September 2019. She has 1 adult daughter who is 22 years old. She currently lives alone. She receives disability. She attended some college. MENTAL STATUS EXAM: General Appearance: Patient appears to be stated age is alert, pleasant, and cooperative. Patient appears to have disheveled hygiene and grooming wearing hospital gown. Patient is a very thin build. Behavior: Patient displays elevated psychomotor activity. Speech: Patient's speech is nonlinear, hyperverbal, slightly pressured. Mood/Affect: Patient reports their mood is "feeling much better", affect is anxious and expansive. Guarded. Suicidality/Homicidality: Patient is vehemently denying any suicidal or homicidal ideation. Perceptions: Patient denies any visual hallucinations and denies any auditory hallucinations Though content/process: Patient appears to be somewhat disorganized and nonlinear. Memory and concentration: AOX3, grossly intact for the purposes of this session. Can spell "WORLD" backwards Judgment and insight: Poor IMPRESSIONS: Acute psychosis Alcohol use disorder Suspected benzodiazepine abuse PLAN: -At this time patient DOES meet criteria for inpatient psychiatric admission. The patient has been petitioned. There is concern for the patient's ability to care of self as well as her inconsistent history. -Delirium precautions recommended with patient including - avoiding use of narcotics and LINEN CLERK sedatives, limit anticholinergic medications when possible, frequent re-orientation, minimize use of restraints, open window shades during the day and close them at night -Would recommend the following medication changes/additions: Highly recommend that the patient is not prescribed Dilaudid. There is concern that the patient abuses controlled medications. We'll decrease Xanax to 0.5 mg by mouth every 8 hours when necessary for anxiety. -Continue 1:1 sitter for safety -Cannot leave AMA at this time. Patient will need a petition and certification if attempting to leave AMA. -Will continue to follow along -When medically stable, patient is eligible for transfer to a [facility] bed when available. Laboratory Results WBC 6.9 k/uL (3.8-10.6) 01/31/22 04:35 RBC 3.85 m/uL (3.80-5.40) 01/31/22 04:35 Hgb 14.2 gm/dL (11.4-16.0) 01/31/22 04:35 Hct 43.1 % (34.0-46.0) 01/31/22 04:35 MCV 112.1 fL (80.0-100.0) H 01/31/22 04:35 MCH 36.9 pg (25.0-35.0) H 01/31/22 04:35 MCHC 32.9 g/dL (31.0-37.0) 01/31/22 04:35 RDW 12.6 % (11.5-15.5) 01/31/22 04:35 Plt Count 327 k/uL (150-450) 01/31/22 04:35 MPV 7.9 01/31/22 04:35 Neutrophils % 48 % 01/31/22 04:35 Lymphocytes % 46 % 01/31/22 04:35 Monocytes % 4 % 01/31/22 04:35 Eosinophils % 0 % 01/31/22 04:35 Basophils % 1 % 01/31/22 04:35 Neutrophils # 3.3 k/uL (1.3-7.7) 01/31/22 04:35 Lymphocytes # 3.2 k/uL (1.0-4.8) 01/31/22 04:35 Monocytes # 0.3 k/uL (0-1.0) 01/31/22 04:35 Eosinophils # 0.0 k/uL (0-0.7) 01/31/22 04:35 Basophils # 0.0 k/uL (0-0.2) 01/31/22 04:35 Hypochromasia Slight 01/31/22 04:35 Macrocytosis Marked A 01/31/22 04:35 Sodium 142 mmol/L (137-145) 01/31/22 04:35 Potassium 4.2 mmol/L (3.5-5.1) 01/31/22 04:35 Chloride 103 mmol/L (98-107) 01/31/22 04:35 Carbon Dioxide 20 mmol/L (22-30) L 01/31/22 04:35 Anion Gap 19 mmol/L 01/31/22 04:35 BUN 16 mg/dL (7-17) 01/31/22 04:35 Creatinine 0.47 mg/dL (0.52-1.04) L 01/31/22 04:35 Est GFR (CKD-EPI)AfAm >90 (>60 ml/min/1.73 sqM) 01/31/22 04:35 Est GFR (CKD-EPI)NonAf >90 (>60 ml/min/1.73 sqM) 01/31/22 04:35 Glucose 109 mg/dL (74-99) H 01/31/22 04:35 Calcium 8.3 mg/dL (8.4-10.2) L 01/31/22 04:35 Phosphorus 5.9 mg/dL (2.5-4.5) H 01/31/22 04:35 Magnesium 1.8 mg/dL (1.6-2.3) 01/31/22 04:35 Total Bilirubin 0.8 mg/dL (0.2-1.3) 01/31/22 04:35 AST 45 U/L (14-36) H 01/31/22 04:35 ALT 29 U/L (4-34) 01/31/22 04:35 Alkaline Phosphatase 113 U/L (38-126) 01/31/22 04:35 Total Protein 6.7 g/dL (6.3-8.2) 01/31/22 04:35 Albumin 4.2 g/dL (3.5-5.0) 01/31/22 04:35 Lipase 42 U/L (23-300) 01/31/22 00:29 Serum Alcohol 371 mg/dL H* 01/31/22 00:29 Allergies Allergy/AdvReac Type Severity Reaction Status Date / Time ketorolac [From Toradol] AdvReac Nausea & Verified 01/31/22 08:17 Vomiting lactose AdvReac Nausea & Verified 01/31/22 08:17 Vomiting & Diarrhea nicotine [From Habitrol] AdvReac Nausea & Verified 01/31/22 08:17 Vomiting Vital Signs Temp 98.6 F 01/31/22 09:10 Pulse 89 01/31/22 09:10 Resp 19 01/31/22 09:10 BP 108/80 01/31/22 09:10 Pulse Ox 94 L 01/31/22 09:10 FiO2 Intake & Output 01/30/22 01/31/22 01/31/22 18:59 06:59 18:59 Output Total 200 Balance -200 Weight 54.431 kg 54.431 kg Output: Emesis 200 01/31/22 14:29
[2022-01-31] MEDS: ALPRAZolam 0.5 MG TAB PO PRN (19:45)
[2022-02-01] MEDS: LORazepam 1 MG/0.5 ML VIAL IV PRN ×5 (01:50→16:07)
--- NOTE | 2022-02-01 02:18 | HP ---
HISTORY AND PHYSICAL CHIEF COMPLAINT: Severe anxiety and tremors. HISTORY OF PRESENT ILLNESS: This is a 51-year-old woman with a past medical history of multiple medical problems, including DVT, history of cancer, pulmonary embolism, was complaining of severe anxiety and the patient apparently took alcohol to relieve the anxiety. The patient has petition, alcohol level was found to be 371. The patient was admitted for evaluation and treatment. The patient has some tremors at this time. There is no history of any fever, rigors, or chills. PAST MEDICAL HISTORY: History of DVT, pulmonary embolism, rest of history reviewed. HOME MEDICATIONS: Reviewed, Protonix. Doses and rest of medications noted. ALLERGIES: Lactose, reviewed. SOCIAL HISTORY: History of THC, alcohol, reviewed. FAMILY HISTORY: Multiple sclerosis. REVIEW OF SYSTEMS: A 14-point review of systems is negative except as mentioned earlier. PHYSICAL EXAMINATION: VITAL SIGNS: Pulse 106, blood pressure 95/73, respirations 18. HEENT: Conjunctivae normal. NECK: No JVD. CARDIOVASCULAR: S1, S2. RESPIRATIONS: Breath sounds diminished at the bases. No rhonchi. No crackles. ABDOMEN: Soft, nontender. LEGS: No edema, no cyanosis, diffusely weak and tremors. SKIN: No ulnar, rash, bleeding. JOINTS: No active deforming arthropathy. LABS: WBC 6.9, sodium 142, potassium 4.2. ASSESSMENT: 1. Acute alcohol intoxication and withdrawal. 2. Deep venous thrombosis. 3. History of pulmonary embolism. 4. Multiple medical issues. RECOMMENDATIONS AND DISCUSSION: I recommend to continue current management and treatment, CIWA protocol, supplement vitamins. Resume the home medications and psychiatric consultation. The patient has safety protocol. Guarded prognosis. Further recommendations to follow. See orders for further details. MMODL / IJN: [id number] /
[2022-02-01] MEDS: HYDROmorphone 1 MG/ML 1 ML SYRINGE IVP PRN ×2 (04:07→08:10)
[2022-02-01] MEDS: ALPRAZolam 0.5 MG TAB PO PRN ×2 (04:13→13:30)
[2022-02-01] MEDS ORDERED: PANTOPRAZOLE 40 MG TABLET PO SCH (07:30)
[2022-02-01] MEDS: FOLIC ACID 1 MG TAB PO SCH (08:10)
[2022-02-01] MEDS: MULTIVITAMINS, THERA 1 EACH TAB PO SCH (08:10)
[2022-02-01] MEDS: THIAMINE 100 MG TAB PO SCH (08:10)
[2022-02-01 08:31] VITALS: PULSE 101; RESP 18
[2022-02-01] MEDS ORDERED: FERROUS SULFATE 325 MG TAB PO SCH (09:00)
[2022-02-01] MEDS ORDERED: NON FORMULARY DRUG (Potassium Gluconate [Potassium Gluconate Er] 99 MG Tablet) PO SCH (09:00)
[2022-02-01] MEDS ORDERED: CHOLECALCIFEROL 25 MCG (1000 IU) TABLET PO SCH (09:00)
[2022-02-01 10:37] LABS: HCT 38.2 % (37.2-46.3); HGB 12.8 g/dL (12.0-15.0); MCH 37.1 pg (27.0-32.0); MCHC 33.5 g/dL (32.0-37.0); MCV 110.7 fL (80.0-97.0); Mean Platelet Volume 10.4 fL (9.5-12.2); NRBC Per 100 WBC 0 /100 WBCS (0.0-0.0); Platelet Count 203 X 10*3/uL (140-440); RBC 3.45 X 10*6/uL (4.10-5.20); RDW 12.5 % (11.5-14.5); WBC 4.37 X 10*3/uL (4.50-10.00)
[2022-02-01 10:56] LABS: African American GFR (CKD) 140.8 (60.0-200.0); Albumin/Globulin Ratio 1.74 (1.60-3.17); Anion Gap 11.5 mmol/L (10.00-18.00); BUN/Creat Ratio 21.25 Ratio (12.00-20.00); Blood Urea Nitrogen 8.5 mg/dL (9.0-27.0); Calcium 9.1 mg/dL (8.7-10.3); Carbon Dioxide 26.5 mmol/L (20.0-27.5); Globulin 2.3 g/dL (1.6-3.3); Non-African American GFR(CKD) 121.4 (60.0-200.0); Potassium 3.8 mmol/L (3.5-5.5); Total Bilirubin 0.9 mg/dL (0.30-1.20); Total Protein 6.3 g/dL (6.2-8.2)
[2022-02-01 11:50] LABS: Basophils # (A) 0.02 X 10*3/uL (0.00-0.10); Basophils % (A) 0.5 %; Eosinophils # (A) 0.02 X 10*3/uL (0.04-0.35); Eosinophils % (A) 0.5 %; Immature Grans, Automated 0 %; Lymphocytes # (A) 1.53 X 10*3/uL (0.90-5.00); Macrocytosis (M) 2+; Monocytes # (A) 0.33 X 10*3/uL (0.20-1.00); Monocytes % (A) 7.6 %; Neutrophils # (A) 2.47 X 10*3/uL (1.80-7.70); Neutrophils % (A) 56.4 %; Stomatocytes 2+
[2022-02-01 14:22] VITALS: BP 126/96; TEMP 98.9
--- NOTE | 2022-02-02 14:23 | DS ---
DISCHARGE SUMMARY FINAL DIAGNOSES: 1. Possible acute psychosis. 2. Possible alcoholism. 3. History of deep venous thrombosis. DISCHARGE DISPOSITION: The patient will be transferred to inpatient psych at this time. HISTORY OF PRESENT ILLNESS: This 51-year-old woman with past medical history of multiple medical problems, was admitted with severe anxiety and possible features of psychosis. Patient with tremors, alcohol abuse was suspected. The patient was seen by Psychiatry, recommended inpatient psych for evaluation for acute psychosis and anxiety. I did the first certification. PHYSICAL EXAMINATION: VITAL SIGNS: Stable. CARDIOVASCULAR: S1 and S2. ABDOMEN: Soft. NERVOUS SYSTEM: No focal deficits. Please refer to the medication reconciliation for list of medications. Recommend close followup with Dr. Jeronimo after discharge. MMODL / IJN: [id number] /
== END 2022-02-01 16:15 ==
LOC: EC 22:55 → 4SSUR 23:59
PROVIDERS: ADMIT Hospitalist; ATTEND Hospitalist
DX: F10.120 Alcohol abuse with intoxication, uncomplicated (principal); K21.9 Gastro-esophageal reflux disease without esophagitis; F41.0 Panic disorder [episodic paroxysmal anxiety]; M79.7 Fibromyalgia; F32.A Depression, unspecified; F12.90 Cannabis use, unspecified, uncomplicated; Z79.01 Long term (current) use of anticoagulants; Z79.899 Other long term (current) drug therapy; Z86.711 Personal history of pulmonary embolism; Z85.828 Personal history of other malignant neoplasm of skin; Z98.51 Tubal ligation status; Z20.822 Contact with and (suspected) exposure to COVID-19; Z87.891 Personal history of nicotine dependence; Z82.0 Family history of epilepsy and other diseases of the nervous system; Y90.8 Blood alcohol level of 240 mg/100 ml or more
CPT/HCPCS: 96376 ×3; 82075; 96361; 96374; 96375; 99284; 36415; 80053 ×2; 83690; 83735; 84100; 85025 ×2; 87635; G0378 ×2; G0480; J2060 ×2; J1170 ×2; 80320

== ENCOUNTER 2022-02-01 15:25 | Inpatient (IN) | payer MEDICARE ==
[2022-02-01] MEDS ORDERED: HALOPERIDOL LACTATE 5 MG/ML 1 ML VIAL IM PRN (16:12)
[2022-02-01] MEDS ORDERED: MAG HYDROX/AL HYDROX/SIMETH 30 ML CUP PO PRN (16:12)
[2022-02-01] MEDS ORDERED: MAGNESIUM HYDROXIDE 2,400 MG/10 ML CUP PO PRN (16:12)
[2022-02-01] MEDS ORDERED: haloperidoL 5 MG TAB PO PRN (16:15)
[2022-02-01] MEDS ORDERED: LORazepam 2 MG/ML INJ IM PRN (16:15)
[2022-02-01] MEDS ORDERED: QUEtiapine 100 MG TAB PO PRN (16:16)
[2022-02-01] MEDS: chlordiazePOXIDE 25 MG CAP PO SCH (20:07)
[2022-02-01] MEDS: LORazepam 1 MG TAB PO PRN (21:19)
[2022-02-01 21:27] VITALS: RESP 16
[2022-02-02] MEDS: LORazepam 1 MG TAB PO PRN ×2 (04:55→11:07)
[2022-02-02 05:36] VITALS: TEMP 97.7
[2022-02-02] MEDS: chlordiazePOXIDE 25 MG CAP PO SCH ×2 (08:27→20:39)
[2022-02-02] MEDS: NICOTINE 14MG/24HR PATCH TRANSDERM SCH (08:27)
[2022-02-02] MEDS: ACETAMINOPHEN TAB 325 MG TAB PO PRN ×2 (08:48→21:50)
[2022-02-02] MEDS ORDERED: NICOTINE GUM (POLACRILEX) 2 MG GUM BUCCAL PRN (10:23)
[2022-02-02 11:21] VITALS: BP 106/74; PULSE 104
[2022-02-02 15:37] VITALS: BMI 14.8
[2022-02-02] MEDS: MELATONIN 3 MG TABLET PO SCH (20:38)
[2022-02-02] MEDS: DIVALPROEX ER 250 MG TAB.ER.24H PO SCH (20:38)
[2022-02-02] MEDS ORDERED: QUEtiapine 100 MG TAB PO SCH (21:00)
--- NOTE | 2022-02-03 01:47 | CONS ---
CONSULTATION REASON FOR CONSULTATION: Advice regarding migraine and other medical issues, requested by Psychiatrist. HISTORY OF PRESENT ILLNESS: This is a 51-year-old woman with a past medical history of multiple medical issues, admitted for evaluation of psychosis, acute alcohol intoxication was suspected initially. There is no history of any fever or rigors. The patient has significant migraine and the patient also has taken treatment from various hospitals without relief. The patient has apparently tried 42 different medications. There is no history of any fever, rigors, or chills. Migraine is light sensitive. PAST MEDICAL HISTORY: History of migraine, history of DVT, multiple medical issues as mentioned earlier. HOME MEDICATIONS: Reviewed include KCl. Dose and rest of medication reviewed. ALLERGIES: Reviewed include MSG. FAMILY HISTORY: History of multiple sclerosis. SOCIAL HISTORY: History of alcohol as mentioned earlier, THC. REVIEW OF SYSTEMS: A 14-point review of systems is negative except as mentioned earlier. PHYSICAL EXAMINATION: VITAL SIGNS: Pulse is 130, blood pressure is 108/90, respirations 16. HEENT: Conjunctivae normal. NECK: No JVD. CARDIOVASCULAR: Breath sounds diminished at the bases. No rhonchi. No crackles. ABDOMEN: Soft, nontender. LEGS: No edema. No swelling. SKIN: No ulcer, rash, bleeding. JOINTS: No active deforming arthropathy. NERVOUS SYSTEM: Cranial nerves II through XII grossly intact. Moves all 4 limbs. No focal deficits. LABORATORY DATA: Not available. ASSESSMENT: 1. Possible acute psychosis. 2. Migraine, intractable. 3. History of deep venous thrombosis. 4. History of alcohol intoxication. 5. History of pulmonary embolism. 6. Multiple medical issues. RECOMMENDATIONS AND DISCUSSION: Recommend to continue current management and symptomatic treatment otherwise. The patient may be tried Tylenol p.r.n. and light sensitivity may be managed. Otherwise, recommend resume home medications. Follow with primary physician in outpatient setting. We will be happy to review if there is abnormal labs or any other medical issues. Thank you, Dr. Bowman. MMTERRENCEL / ERWINN: [id number] /
[2022-02-03] MEDS: NICOTINE 14MG/24HR PATCH TRANSDERM SCH (08:24)
[2022-02-03] MEDS: chlordiazePOXIDE 25 MG CAP PO SCH (08:24)
[2022-02-03] MEDS: ACETAMINOPHEN TAB 325 MG TAB PO PRN ×2 (08:25→13:37)
--- NOTE | 2022-02-03 10:09 | P.HP ---
Psychiatric H&P - . H&P Date: 02/02/22 History & Physical: Allergies Allergy/AdvReac Type Severity Reaction Status Date / Time monosodium glutamate [MSG] AdvReac Severe Unknown Verified 02/01/22 20:32 ketorolac [From Toradol] AdvReac Nausea & Verified 01/31/22 08:17 Vomiting lactose AdvReac Nausea & Verified 01/31/22 08:17 Vomiting & Diarrhea nicotine [From Habitrol] AdvReac Nausea & Verified 01/31/22 08:17 Vomiting food dye AdvReac Severe Unknown Uncoded 02/01/22 20:32 Vital Signs Temp 97.7 F 02/02/22 04:05 Pulse 104 H 02/02/22 11:00 Resp 16 02/02/22 04:05 BP 106/74 02/02/22 11:00 Pulse Ox 99 02/02/22 04:05 FiO2 Intake & Output 02/02/22 02/03/22 02/03/22 18:59 06:59 18:59 Weight 41.867 kg 02/03/22 10:08 IDENTIFYING DATA: This patient is a 51-year-old, , on disability, female with a significant history of anxiety and fibromyalgia presented to the hospital on a petition and certification for mental health evaluation and transferred to the psychiatric unit after being stabilized on the medical floor for acute alcohol intoxication HPI: Patient presented to the hospital on 01/30/2022, brought into the emergency department by EMS for evaluation of severe anxiety attack. The patient had recent presentations to the emergency department for alcohol use and unspecified somatic symptoms. As her petition filled up with the patient's daughter, the pa tiejessica has been endorsing suicidal ideations as well as presenting with some delusional thought content and response internal stimuli. Another petition was filed up with a transport corps officer reported that the patient had a significant decline in her ability to function was unable to attend her basic needs. It is noted that her blood alcohol level was 371 prior to her admission on the medical floor. The patient has been chronically prescribed Xanax on top of her heavy binge episodes of alcohol use. Upon evaluation on the psychiatric unit, the patient reports that she has no reason to be admitted to the psychiatric unit. However, the patient is endorsing significant symptoms of hypomania including excessive energy, pressured speech, mood lability, impulsivity, and irritability. She does endor se racing thoughts. Furthermore, the patient reports numerous somatic symptoms including headaches, migraines, nausea, and insomnia. She reports that she is in significant pain. It is noted that the patient has been treating her migraines with opiates. The patient has been chronically prescribed and given controlled substances and has been self-medicating with alcohol as well. She does not endorse any auditory or visual hallucinations. She reports no suicidal or homicidal ideation. She is admitted for further psychiatric evaluation. PAST PSYCHIATRIC HISTORY: Patient states that she has been previously diagnosed with depression and anxiety. The patient states that she has been on "every single psychiatric medication and all of them have the opposite effect on me." Patient denies any previous psychiatric hospitalizations. Patient is currently open with [facility] at [place] and sees a remote PA and remote counselor. It is noted that they have been chronically prescribing this patient 3 mg of Xanax daily for more than 2 years. As per [facility], the patient's overdose scores 710. She denies any previous attempts at suicide. PMH: ALLERGIES: Ketorolac, lactulose, nicotine CHEMICAL DEPENDENCY HISTORY: The patient reports that she "drinks on occasion." Despite this, the patient's blood alcohol was 371 and there is concern that she has been mixing alcohol with benzodiazepines. She reports that she smokes 3-4 cigarettes. She also reports that she is marijuana on occasion to address her migraines. She denies any illicit drug use however has not been prescribed any opiates but states that she uses opiates to manage her migraines. FAMILY PSYCHIATRIC/SUBSTANCE USE HISTORY: No reported family psychiatric history SOCIAL HISTORY: Patient was born in [place], [place] and raised in [place], [place]. She is as of September 2019. She has 1 adult daughter who is 22 years old. She currently lives alone. She receives disability. She attended some college. MENTAL STATUS EXAM: General Appearance: Patient appears to be stated age is alert, directable, and attempts to cooperate. Patient appears to have disheveled hygiene and grooming. Behavior: Patient displays elevated psychomotor activity. Intense eye contact. Speech: Patient's speech is pressured, hyperverbal, loud in volume. Mood/Affect: Patient reports their mood is "I'm okay I really don't need to be here," affect is expansive and intense. Suicidality/Homicidality: Patient denies having any homicidal ideation intent or plan. Denies any suicidal ideations intent or plan Perceptions: Patient denies any visual hallucinations and denies any auditory hallucinations Though content/process: There is no evidence of any delusional thought content and thought process is linear and goal-directed. However, the patient is fixated on medication management, and particular opiates and benzodiazepines. Memory and concentration: AOX3, grossly intact for the purposes of this session. Can spell "WORLD" backwards Judgment and insight: Very poor STRENGTHS/WEAKNESSES: Strength is that the patient appears to be resourceful and has a supportive family. Weakness is that the patient is chronically prescribed benzodiazepines and may be using illicit opiates and is likely underreporting her alcohol intake. INTELLECT: average IMPRESSIONS: Bipolar 2 disorder, mixed episode Alcohol use disorder Chronic benzodiazepine dependence PLAN: -Patient is admitted under voluntary status to MHU for stabilization of psychiatric symptoms and safety. Patient signed adult voluntary form and medication consent and is placed in patient's chart. -Medications : Will start patient on Depakote 750 mg by mouth at bedtime for mood stabilization Melatonin 3 mg by mouth at bedtime for insomnia -Vistaril and Haldol PRN for agitation/aggression -Patient was counselled on substance abuse and desired to cut back on use -Patient was informed of the risks, benefits and side effects of the medication and patient verbally consented to taking the medications. Patient signed med consent form and was placed in chart. -Internal Medicine consult to perform medical evaluation and physical. -NRT - -This provider contacted her outpatient [facility] regarding his excessive prescription of xanax. -SW on board for discharge planning. Encourage patient to participate in groups to work on coping skills.
--- NOTE | 2022-02-03 13:21 | P.PN ---
Progress Note - Text Progress Note Date: 02/03/22 Interval History: Patient was seen wandering the hallways and was directable and agreeable to speak with blurb writer in the office. Currently, the patient is not reporting any suicidal or homicidal ideation, intention, and/or plan. She is not reporting any auditory or visual hallucinations. She reports no paranoia or other delusions. The patient continues to be focused on discharge. However, the patient reports that she has been expressing a migraine and due to the every 15 minute checks, sleep has been difficult. But overall, she is denying any racing thoughts, mood lability, and appears to be much more directable. Mental Status Exam: General Appearance: Patient appears to be stated age is alert, directable, and cooperative. Behavior: Patient is calmly seated without any agitated behavior. Speech: Patient's speech is fluent and nonpressured. Less pressured and more fluent. Mood/Affect: Mood is "doing okay." Affect is more euthymic and with an appropriate range compared to yesterday. Suicidality/Homicidality: Patient denies having any suicidal or homicidal ideation intent or plan. Perceptions: Patient denies any visual hallucinations and denies any auditory hallucinations Though content/process: There is no evidence of any delusional thought content and thought process is linear and goal-directed. Memory and concentration: AOX3, grossly intact for the purposes of this session Judgment and insight: Improving mildly Vital Signs Temp 97.7 F 02/02/22 04:05 Pulse 104 H 02/02/22 11:00 Resp 16 02/02/22 04:05 BP 106/74 02/02/22 11:00 Pulse Ox 99 02/02/22 04:05 FiO2 Intake & Output 02/02/22 02/03/22 02/03/22 18:59 06:59 18:59 Weight 41.867 kg Assessment Bipolar 2 disorder, mixed episode Alcohol use disorder Chronic benzodiazepine dependence Plan: -Patient continues to meet criteria for inpatient psychiatric admission for symptom stabilization and safety. Patient has signed adult voluntary form and medication consent and was placed in patient's chart. -Medications: Continue Depakote 750 mg daily at bedtime for mood stabilization Continue melatonin 3 mg by mouth daily at bedtime for insomnia -When necessary Ativan and Geodon for agitation/aggression. -NRT - nicotine patch -SW on board for discharge planning. Encouraged the patient to participate in milieu.
[2022-02-03] MEDS: DIVALPROEX ER 250 MG TAB.ER.24H PO SCH (20:08)
[2022-02-03] MEDS: MELATONIN 3 MG TABLET PO SCH (20:09)
[2022-02-04] MEDS: ACETAMINOPHEN TAB 325 MG TAB PO PRN (08:58)
[2022-02-04] MEDS: NICOTINE 14MG/24HR PATCH TRANSDERM SCH (08:59)
--- NOTE | 2022-02-04 12:04 | P.DS ---
Providers Date of admission: 02/01/22 16:25 Expected date of discharge: 02/04/22 Attending physician: Ayden Bowman MD Consults: 02/01/22 16:12 Consult Physician Routine Consulting Provider: Casey De Anda Consult Reason/Comments: H&P and medical Do you want consulting provider notified?: Yes Primary care physician: Deshaun Jeronimo - Discharge Diagnosis(es) (1) Bipolar 2 disorder Status: Acute Priority: High (2) Alcohol use disorder Status: Chronic Priority: Medium (3) Chronic prescription benzodiazepine use Status: Chronic Priority: Medium Hospital Course: Admission HPI: This patient is a 51-year-old, , on disability, female with a significant history of anxiety and fibromyalgia presented to the hospital on a petition and certification for mental health evaluation and transferred to the psychiatric unit after being stabilized on the medical floor for acute alcohol intoxication Patient presented to the hospital on 01/30/2022, brought into the emergency department by EMS for evaluation of severe anxiety attack. The patient had recent presentations to the emergency department for alcohol use and unspecified somatic symptoms. As her petition filled up with the patient's daughter, the patient has been endorsing suicidal ideations as well as presenting with some delusional thought content and response internal stimuli. Another petition was filed up with a lead security officer reported that the patient had a significant decline in her ability to function was unable to attend her basic needs. It is noted that her blood alcohol level was 371 prior to her admission on the medical floor. The patient has been chronically prescribed Xanax on top of her heavy binge episodes of alcohol use. Upon evaluation on the psychiatric unit, the patient reports that she has no reason to be admitted to the psychiatric unit. However, the patient is endorsing significant symptoms of hypomania including excessive energy, pressured speech, mood lability, impulsivity, and irritability. She does endorse racing thoughts. Furthermore, the patient reports numerous somatic symptoms including headaches, migraines, nausea, and insomnia. She reports that she is in significant pain. It is noted that the patient has been treating her migraines with opiates. The patient has been chronically prescribed and given controlled substances and has been self-medicating with alcohol as well. She does not endorse any auditory or visual hallucinations. She reports no suicidal or homicidal ideation. She is admitted for further psychiatric evaluation. Patient states that she has been previously diagnosed with depression and anxiety. The patient states that she has been on "every single psychiatric medication and all of them have the opposite effect on me." Patient denies any previous psychiatric hospitalizations. Patient is currently open with my stance at [facility] and sees a remote PA and remote counselor. It is noted that they have been chronically prescribing this patient 3 mg of Xanax daily for more than 2 years. As per [facility], the patient's overdose scores 710. She denies any previous attempts at suicide. Hospital course: Upon admission to the unit patient was initially presenting as hypomanic with pressured speech, expansive affect, and mood lability. Patient was however directable and agreeable to commence treatment. Patient got along well with other patients on the unit and followed unit protocol. Patient was compliant with the medications and denied any side effects throughout hospital course. Patient was started on Depakote for mood stabilization and Librium for Xanax/alcohol withdrawal. Patient spoke of her stressors and engaged in therapy both group and individual. Patient was also seen by medical team for history and physical exam. Over the course of hospital position, the patient's but significant improvement in regards to mood stability. She became more future and goal oriented] develop better insight and judgment in regards to her care. On the day of discharge, the patient is not reporting any suicidal or homicidal ideation, intention, and/or plan. She is not reporting that she is denying any paranoia or other delusions. The patient has been adherent with her medication is not reporting any side effects at this time. She is not reporting any gran diosity, impulsivity, or excessive energy. She has been eating and sleeping well. The patient was counseled at length the importance of medication adherence and appropriate outpatient follow-up. The patient does have significant history of chronic benzodiazepine dependence and alcohol use. We discussed at length the dangers of use of these substances together and the risk of places her for dependence as well as respiratory depression and . Prior to discharge, family meeting was arranged by manager social media to answer any questions and ensure safety. She is encouraged to follow-up with their outpatient appointment for mental health and for primary care. Mental status exam: General Appearance: Patient appears to be stated age is alert, pleasant, and cooperative. Patient is in no acute distress and has fair hygiene and grooming Behavior: Patient is calmly seated without any agitated behavior. Speech: Patient's speech is fluent and nonpressured. Mood/Affect: Patient reports their mood is "much better", affect is congruent and euthymic to bright and with normal range. Suicidality/Homicidality: Patient denies having any suicidal or homicidal ideation intent or plan. Perceptions: Patient denies any auditory or visual hallucinations. Though content/process: There is no evidence of any delusional thought content and thought process is linear and goal-directed. Patient is future oriented Memory and concentration: AOX3, grossly intact for the purposes of this session. Can spell "WORLD" backwards correctly. Judgment and insight: Improved with guarded prognosis Impression: Bipolar 2 disorder, mixed episode Alcohol use disorder Chronic benzodiazepine dependence Plan: -Continue with discharge today as patient has improved and stabilized psychiatrically and is not currently an imminent threat to herself and/or others. Patient will remain at chronically elevated risk for harm to self and/or others due to her chronic benzodiazepine dependence and substance abuse -Continue medications: Depakote 750 mg by mouth at bedtime for mood stabilization Melatonin 3 mg daily at bedtime for insomnia Recommend CMP and Depakote level in the outpatient setting. -Patient was counseled on the need for medication compliance and appropriate follow-up at mental health and also primary care for medical issues. Patient verbalized understanding and agreed. -Social work to arrange for and conduct family meeting to ensure safety upon discharge and answer any questions/concerns. Social work also to arrange for patients follow up appointments for psychiatric care along with follow up with primary care provider. -Patient counseled on abstaining from recreational drugs and marijuana and alcohol. Was informed/educated on the adverse effects on their physical and mental health. Patient verbally agreed and understood. Patient was offered substance abuse treatment however declined at this time. -Patient was instructed to return to the hospital or seek immediate medical care if their psychiatric or medical symptoms do worsen or reoccur. -Psychoeducation and supportive therapy provided to patient. Risks and benefits of pharmacological treatment versus the risks and benefits of nontreatment weight and discussed. Informed consent discussion held. Common side effects of psychotropics discussed such as, but not limited to headache, GI disturbance, sexual dysfunction, movement disorders, sedation, and orthostatic hypotension. Life threatening and blackbox warnings of prescribed medications also discussed. Potential risks of operating a vehicle or heavy machinery discussed with patient at length. Advised on importance of compliance and a reliable and responsible manner. Patient advised to review FDA consumer labeling of all medications prior to taking. Patient verbalized understanding of potential risks, and agrees with current treatment plan. Patient advised to medically contact physician/emergency personnel if any acute changes in condition occur. Vital Signs Temp 97.7 F 02/02/22 04:05 Pulse 104 H 02/02/22 11:00 Resp 16 02/02/22 04:05 BP 106/74 02/02/22 11:00 Pulse Ox 99 02/02/22 04:05 FiO2 Allergies Allergy/AdvReac Type Severity Reaction Status Date / Time monosodium glutamate [MSG] AdvReac Severe Unknown Verified 02/01/22 20:32 ketorolac [From Toradol] AdvReac Nausea & Verified 01/31/22 08:17 Vomiting lactose AdvReac Nausea & Verified 01/31/22 08:17 Vomiting & Diarrhea nicotine [From Habitrol] AdvReac Nausea & Verified 01/31/22 08:17 Vomiting food dye AdvReac Severe Unknown Uncoded 02/01/22 20:32 Patient Condition at Discharge: Stable Plan - Discharge Summary Discharge Rx Participant: Yes New Discharge Prescriptions: New Divalproex ER [Depakote ER] 750 mg PO HS 30 Days tab Melatonin 3 mg PO HS 30 Days tab Continue Ferrous Sulfate [Iron (65 MG Elemental)] 325 mg PO DAILY Cholecalciferol [Vitamin D3 (25 Mcg = 1000 Iu)] 50 mcg PO DAILY Potassium Gluconate [Potassium Gluconate ER] 99 mg PO DAILY Discontinued ALPRAZolam [Xanax] 1 mg PO Q8H PRN PRN Reason: Anxiety Ondansetron [Zofran] 4 mg PO Q12HR PRN PRN Reason: Nausea Pantoprazole [Protonix] 40 mg PO DAILY Discharge Medication List Cholecalciferol [Vitamin D3 (25 Mcg = 1000 Iu)] 50 mcg PO DAILY 12/03/21 [History] Ferrous Sulfate [Iron (65 MG Elemental)] 325 mg PO DAILY 12/03/21 [History] Potassium Gluconate [Potassium Gluconate ER] 99 mg PO DAILY 01/31/22 [History] Divalproex ER [Depakote ER] 750 mg PO HS 30 Days tab 02/04/22 [Rx] Melatonin 3 mg PO HS 30 Days tab 02/04/22 [Rx] Follow up Appointment(s)/Referral(s): [facility] [Other] - 02/10/22 11:00 am (Harinder Pauljavad) [facility] [NON-STAFF] - 1 Week Ambulatory/Diagnostic Orders: Comprehensive Metabolic Panel [LAB.AMB] Location: None Selected Patient Instructions/Handouts: How to Stop Smoking (ED), Bipolar Disorder (DC) Activity/Diet/Wound Care/Special Instructions: Avoid the use of street drugs and alcohol. Take all prescriptions as prescribed. When you are in need of refills on your medications, please contact your medical provider and/or outpatient psychiatrist to have this done. Please go to scheduled outpatient appointment for aftercare treatment. If symptoms return or become worse, call the crisis line at and/or go to the nearest emergency room for evaluation. Discharge Disposition: HOME SELF-CARE
== END 2022-02-04 11:05 | disposition home or self-care (01) | DRG 885 ==
LOC: UNDOADMIN 15:25 → 3MHU 15:25
PROVIDERS: ADMIT Psychiatry & Neurology Psychiatry; ATTEND Psychiatry & Neurology Psychiatry
DX: F31.81 Bipolar II disorder (principal); F13.20 Sedative, hypnotic or anxiolytic dependence, uncomplicated; F10.139 Alcohol abuse with withdrawal, unspecified; R45.851 Suicidal ideations; F17.210 Nicotine dependence, cigarettes, uncomplicated; F41.1 Generalized anxiety disorder; G43.919 Migraine, unspecified, intractable, without status migrainosus; G47.00 Insomnia, unspecified; M79.7 Fibromyalgia; K21.9 Gastro-esophageal reflux disease without esophagitis; Z79.899 Other long term (current) drug therapy; Z85.828 Personal history of other malignant neoplasm of skin; Z86.711 Personal history of pulmonary embolism; Z86.718 Personal history of other venous thrombosis and embolism; Z71.41 Alcohol abuse counseling and surveillance of alcoholic; Z71.51 Drug abuse counseling and surveillance of drug abuser; Z60.2 Problems related to living alone; Z71.3 Dietary counseling and surveillance; Z63.5 Disruption of family by separation and divorce; Z88.5 Allergy status to narcotic agent; Z88.8 Allergy status to other drugs, medicaments and biological substances